=== PATIENT | male | born 1955 | race Caucasian/White ===

== ENCOUNTER 2018-08-28 01:04 | Outpatient (CLI) | payer MEDICAID, SELFPAY ==
[2018-08-28 11:03] LABS: Hemoglobin A1C 8.3 % (4.5-6.2)
[2018-08-28 11:07] LABS: CREATININE 0.67 mg/dL (0.70-1.30); Potassium 3.4 mmol/L (3.5-5.1)
== END 2018-08-28 01:24 ==
PROVIDERS: PCP Family Medicine; Visit Provider Family Medicine
DX: E11.9 Type 2 diabetes mellitus without complications (principal); I10 Essential (primary) hypertension
CPT/HCPCS: 36415; 82565; 83036; 84132

== ENCOUNTER 2018-12-21 09:58 | Emergency (ER) | payer MEDICARE, MEDICAID, SELFPAY ==
[2018-12-21] VITALS (62 sets, daily range): BP systolic 102–144; BP diastolic 37–95; PULSE 72–117; RESP 4–39; TEMP 36.8–38; O2SAT 84–98
[2018-12-21] MEDS: Lactated Ringers 500 ML 1000 ML IV (10:00)
--- NOTE | 2018-12-21 10:05 | DI.CT_ITS ---
SYMPTOMS/DIAGNOSIS: COUGH, CRACKLES, RESPIRATORY DISTRESS, FEVER, ABDOMEN TENDER TO PALPATION, GUARDING ABDOMEN CT OF THE CHEST, ABDOMEN AND PELVIS: CT scan of the chest, abdomen and pelvis was performed following the uneventful administration of intravenous contrast material. Comparison is 01/16/17. The is some image degradation due to patient motion artifact. CT SCAN OF THE ABDOMEN AND PELVIS: The liver is normal in size. No evidence of a hepatic mass is seen. The portal, superior mesenteric and splenic veins are all patent. The gallbladder is negative. No biliary ductal dilatation is seen. The pancreas and spleen are unremarkable. There is unchanged nodularity of the adrenal glands. These likely reflect adenomas. The kidneys show normal and symmetric enhancement. No solid renal mass or obstruction is identified. Calcifications are seen of the sophie bilaterally. These may be vascular in nature but nonobstructing stones can not be excluded. No ureterolithiasis or hydronephrosis is seen. The urinary bladder is intact. The reproductive organs are unremarkable. There is diverticulosis of the colon but no evidence of acute diverticulitis. No findings to suggest an acute appendicitis are present. There is a small right inguinal hernia containing an unremarkable loop of small bowel. No evidence of obstruction or incarceration is seen. There is atherosclerosis of the abdominal aorta but no aneurysmal dilatation is present. No significant abdominal or pelvic adenopathy, ascites or pneumoperitoneum is present. Degenerative changes are seen in the spine. IMPRESSION: No evidence of an acute abdomen or pelvis. CT SCAN OF THE CHEST: There are enlarged lymph nodes seen in the mediastinum. The largest measures 1.4 cm in its short axis. There is atherosclerosis of the thoracic aorta but no aneurysmal dilatation is seen. The heart is mildly enlarged. No significant pericardial effusion is seen. Coronary artery calcifications are present. There is a small left pleural effusion. No pneumothorax is identified. Moderate central lobular and paraseptal emphysematous changes are present. The lung images are compromised due to the significant patient motion artifact. There is a large area of consolidation involving the anterior and lateral aspect of the left lower lobe. Air bronchograms are present. There is also a peripheral nodular opacity in the lateral aspect of the right upper lobe. The tracheobronchial tree is unremarkable. No evidence of a pneumothorax is present. Degenerative changes are seen in the spine. IMPRESSION: 1. Large area of consolidation involving the left lower lobe suspicious for pneumonia. Progress films are recommended to document complete resolution of the infiltrate. 2. Enlarged mediastinal adenopathy. This may be reactive. Neoplastic process can not be excluded. 3. Small area of nodularity in the lateral aspect of the right upper lobe. Differential considerations include atelectasis, pneumonia or pulmonary nodule. 4. Small left pleural effusion. These findings were discussed with the emergency department on the date of the examination.
--- NOTE | 2018-12-21 10:09 | W.ED.GENAD ---
Discharge Plan Disposition Patient Disposition: [facility] Condition: Serious Discharge Details Chief Complaint: SOB Clinical Impression: COPD with acute exacerbation, Pneumonia, Sepsis, Hypomagnesemia Reason For Visit: MIHIR Primary Care Provider: Julio Hackett ED Provider: Armani Pathak Home Meds and New Rx's Prescriptions: No Action paroxetine HCl 30 mg tablet 30 mg PO DAILY Qty: 90 RF: 3 Jardiance 10 mg tablet 10 mg PO DAILY Qty: 90 RF: 3 clopidogrel 75 mg tablet 75 mg PO DAILY Qty: 90 RF: 3 isosorbide mononitrate 30 mg tablet extended release 24 hr 30 mg PO DAILY Qty: 90 RF: 3 metoprolol tartrate 25 mg tablet 25 mg PO BID Qty: 180 RF: 3 Prevnar 13 (PF) 0.5 mL syringe 0.5 ml IM ONCE Qty: 0.5 RF: 0 aspirin [Aspir-81] 81 MG tablet,delayed release (DR/EC) 81 mg PO DAILY RF: 0 rosuvastatin [Crestor] 5 MG tablet 5 mg PO DAILY Qty: 90 RF: 3 omeprazole 20 MG capsule,delayed release(DR/EC) 20 mg PO DAILY Qty: 90 RF: 3 amlodipine 5 MG tablet 5 mg PO DAILY Qty: 90 RF: 3 ProAir HFA 8.5 GM HFA aerosol inhaler 2 puff Inhalation Q4H PRN Qty: 1 RF: 2 Flovent HFA 12 GM HFA aerosol inhaler 1 puff Inhalation BID Qty: 1 RF: 3 blood-glucose meter [Group [employer]uch UltraMini] 1 EACH kit 1 ea Miscellaneous DAILY Qty: 1 RF: 0 metformin 1,000 mg tablet 1,000 mg PO BID Qty: 180 RF: 3 lancets [OneTouch Delica Lancets] 33 gauge misc 1 ea Miscellaneous DAILY Qty: 100 RF: 3 OneTouch Verio strip .Route .MEDSUPPLY Qty: 200 RF: 3 nitroglycerin 0.4 mg tablet, sublingual 0.4 mg Sublingual q 5 minutes PRN (Reason: chest pain) Qty: 25 RF: 0 Medical Decision Making 10:15 --62-year-old male with history of COPD, CAD, here with shortness of breath, fever, productive cough, hypoxic with bilateral rales and wheeze, mild respiratory distress on arrival, also with abdominal pain and diffuse tenderness with some guarding. Concern for acute COPD exacerbation with superimposed pneumonia. Patient is currently hypoxic. Will treat with Solu-Medrol IV, DuoNeb, and antibiotic coverage. Respiratory therapy has been contacted to assist with ongoing treatment. Consider acute life-threatening intra-abdominal surgical process given diffuse tenderness and guarding. Plan for CT of the abdomen pelvis. Given the patient's history and lung findings I think it would be beneficial to image his chest as well. 10:54 -- Initial labs reviewed: WBC 30K, lactate 3.4. Patient has received NS 1L. Cr 1.3. This is elevated from prior. I believe benefit of contrast enhancement outweighs potential risk. Will proceed to CT. Continue IVF bolus. Patient reassessed: saturation improved after nebs and on nasal canula O2, still hypoxic and tachypneic. Plan to start bipap. 11:00 --ECG reviewed and interpreted by me: Sinus tachycardia 110 bpm, normal axis, ST depressions noted laterally (these were present on prior ecg 2016). Notified by lab the troponin is elevated 0.1. Suspect demand ischemia. 11:45 -- Patient reassesed: tolerating bipap. Saturating 95%. --CT of the chest, abdomen and pelvis interpreted by radiology: IMPRESSION: 1. Large area of consolidation involving the left lower lobe suspicious for pneumonia. Progress films are recommended to document complete resolution of the infiltrate. 2. Enlarged mediastinal adenopathy. This may be reactive. Neoplastic process can not be excluded. 3. Small area of nodularity in the lateral aspect of the right upper lobe. Differential considerations include atelectasis, pneumonia or pulmonary nodule. 4. Small left pleural effusion. Patient is receiving levaquin and ceftriaxone. Patient reassessed and remains tachycardic after 1L crystaloid. Will give additional 1L bolus. 12:28 -- Multiple conversations with warehouse guard: unfortunately no ICU beds available here. Plan for transfer. Call to [facility] [place] center to request emergent transfer. 13:08 -- Spoke with Dr. Kee who will accept patient to ICU at [facility] [place]. Awaiting bed availability. Patient reassessed and stable on bipap. HR improved and not currently tachycardic after 2L. 15:17 -- Labs reviewed: VBG with nl PCO2 and pH. Patient received mag 3g prior to transfer. Patient reassessed: stable for transfer, tachycardia resolved, continues to tolerate bipap. HPI General Mode of arrival: EMS. Date/Time Provider Initiated Documentation: 12/21/18 10:05. Limitations to Documentation: no limitations. HPI Narrative: 62-year-old male with history of COPD, GERD, peripheral vascular disease, subclavian stenosis, here with chief complaint of abdominal pain. Patient notes that he had abdominal pain for the past week or so. Pain is been progressive. Pain is localized to his left upper abdomen, lower chest and lateral lower left ribs, and radiates to his scapula. Pain is moderate, worse with deep breath and cough. No associated nausea or vomiting. He has had associated productive cough, shortness of breath, and fever over the past couple days. Related Data Home Medications Medication Instructions Recorded Confirmed aspirin [Aspir-81] 81 mg PO DAILY tab-cap NS 01/09/15 12/21/18 rosuvastatin [Crestor] 5 mg PO DAILY #90 tab-cap 03/24/18 12/21/18 omeprazole 20 mg PO DAILY #90 tab-cap 04/15/18 12/21/18 albuterol sulfate [Proair Hfa] 2 puff INHALATION Q4H PRN #1 05/27/18 12/21/18 inhaler amlodipine 5 mg PO DAILY #90 tab-cap 05/27/18 12/21/18 fluticasone [Flovent 110mcg] 1 puff INHALATION BID #1 inhaler 05/27/18 12/21/18 blood-glucose meter [Onetouch #1 kit 07/31/18 11/17/18 Ultramini] metformin 1,000 mg tablet 1,000 mg PO BID #180 tab 08/07/18 12/21/18 lancets 33 gauge #100 ea 09/03/18 11/17/18 blood sugar diagnostic strips #200 each 11/10/18 11/17/18 clopidogrel 75 mg tablet 75 mg PO DAILY #90 tab-cap 11/17/18 12/21/18 empagliflozin 10 mg tablet 10 mg PO DAILY #90 tab 11/17/18 12/21/18 isosorbide mononitrate ER 30 mg 30 mg PO DAILY #90 tab-cap 11/17/18 12/21/18 tablet,extended release 24 hr metoprolol tartrate 25 mg tablet 25 mg PO BID #180 tab-cap 11/17/18 12/21/18 paroxetine 30 mg tablet 30 mg PO DAILY #90 tab-cap 11/17/18 12/21/18 pneumococcal 13-hillary conj 0.5 ml IM ONCE #0.5 ml 11/17/18 12/21/18 vaccine-dip crm (PF) 0.5 mL IM syringe nitroglycerin 0.4 mg sublingual 0.4 mg SUBLINGUAL q 5 minutes PRN 12/08/18 12/21/18 tablet #25 tab-cap Previous Rx's Medication Instructions Recorded rosuvastatin [Crestor] 5 mg PO DAILY #90 tab-cap 03/24/18 omeprazole 20 mg PO DAILY #90 tab-cap 04/15/18 albuterol sulfate [Proair Hfa] 2 puff INHALATION Q4H PRN #1 05/27/18 inhaler amlodipine 5 mg PO DAILY #90 tab-cap 05/27/18 fluticasone [Flovent 110mcg] 1 puff INHALATION BID #1 inhaler 05/27/18 blood-glucose meter [Hurray!touch #1 kit 07/31/18 Ultramini] metformin 1,000 mg tablet 1,000 mg PO BID #180 tab 08/07/18 lancets 33 gauge #100 ea 09/03/18 blood sugar diagnostic strips #200 each 11/10/18 clopidogrel 75 mg tablet 75 mg PO DAILY #90 tab-cap 11/17/18 empagliflozin 10 mg tablet 10 mg PO DAILY #90 tab 11/17/18 isosorbide mononitrate ER 30 mg 30 mg PO DAILY #90 tab-cap 11/17/18 tablet,extended release 24 hr metoprolol tartrate 25 mg tablet 25 mg PO BID #180 tab-cap 11/17/18 paroxetine 30 mg tablet 30 mg PO DAILY #90 tab-cap 11/17/18 pneumococcal 13-hillary conj 0.5 ml IM ONCE #0.5 ml 11/17/18 vaccine-dip crm (PF) 0.5 mL IM syringe nitroglycerin 0.4 mg sublingual 0.4 mg SUBLINGUAL q 5 minutes PRN 12/08/18 tablet #25 tab-cap Allergies Allergy/AdvReac Type Severity Reaction Status Date / Time pravastatin AdvReac memory loss Unverified 12/21/18 10:16 Review of Systems Review of Systems All systems reviewed & are unremarkable except as noted in HPI and below Cardiovascular Reports dyspnea Respiratory Reports cough and Reports dyspnea Gastrointestinal Reports as per HPI, Reports abdominal pain, Denies diarrhea, Denies nausea and Denies vomiting [facility] Medical History Cranial nerve IV palsy GERD (gastroesophageal reflux disease) Hyperlipidemia Hypertension Surgical History AORTIC graft placement (03/21/17) Stent placement Family History Mother Personal history of malignant neoplasm Father Heart disease Stroke Brother Meniere's disease Social History current occupational status: employed current occupation: [employer] Smoking/Tobacco Use Status: Current every day tobacco type: cigarettes alcohol intake: current alcohol intake frequency: 0-2 drinks per day substance use type: does not use Exam Const General: cooperative and in distress respiratory Nutritional Appearance: overweight Orientation: alert and awake Limitations: mental status not altered HENMT Head: normocephalic and atraumatic Mouth: moist mucous membranes Eyes Conjunctivae: normal conjunctivae Sclera: normal sclerae EOM: EOM intact bilaterally Neck Neck: trachea midline and supple Resp Effort & Inspection: cough, respiratory distress and tachypneic Auscultation: rales bilaterally at the base, no rhonchi and wheezes expiratory wheezes and upper bilaterally Cardio Jugular venous pressure: no JVD Rate: tachycardic Rhythm: regular rhythm Pulses: posterior tibial pulses present bilaterally GI Palpation: soft, not firm, guarding in the LUQ and in the RUQ, no masses, not rigid and tender other (Diffuse) Skin General skin exam: no rashes or lesions noted Neuro General: alert, awake, oriented x3 and tone normal Extrem General: no calf tenderness and no edema Psych Appearance: grossly normal Mental Status: mental status grossly normal Speech and Movement: speech and movement normal Course Lab/Test Results Lab/Test Results: 12/21/18 10:08 Blood Blood Culture - Pending 12/21/18 10:08 Blood Blood Culture - Pending Critical Care Time Critical Care Time: Yes Total Critical Care Time: 80 Attestation: I spent greater than 80 min addressing this patient's immediate life threats.
[2018-12-21] MEDS: methylPREDNISolone SUCC 125 MG VIAL IVP (10:10)
[2018-12-21] MEDS: Albuterol/Ipratropium 3 ML UPD VIAL UPD ×3 (10:10)
--- NOTE | 2018-12-21 10:19 | ED.GENADUL_ITS ---
Discharge Plan Disposition Patient Disposition: [facility] Condition: Serious Discharge Details Chief Complaint: SOB Clinical Impression: COPD with acute exacerbation, Pneumonia, Sepsis, Hypomagnesemia Reason For Visit: MIHIR Primary Care Provider: Julio Hackett ED Provider: Armani Pathak Home Meds and New Rx's Prescriptions: No Action paroxetine HCl 30 mg tablet 30 mg PO DAILY Qty: 90 RF: 3 Jardiance 10 mg tablet 10 mg PO DAILY Qty: 90 RF: 3 clopidogrel 75 mg tablet 75 mg PO DAILY Qty: 90 RF: 3 isosorbide mononitrate 30 mg tablet extended release 24 hr 30 mg PO DAILY Qty: 90 RF: 3 metoprolol tartrate 25 mg tablet 25 mg PO BID Qty: 180 RF: 3 Prevnar 13 (PF) 0.5 mL syringe 0.5 ml IM ONCE Qty: 0.5 RF: 0 aspirin [Aspir-81] 81 MG tablet,delayed release (DR/EC) 81 mg PO DAILY RF: 0 rosuvastatin [Crestor] 5 MG tablet 5 mg PO DAILY Qty: 90 RF: 3 omeprazole 20 MG capsule,delayed release(DR/EC) 20 mg PO DAILY Qty: 90 RF: 3 amlodipine 5 MG tablet 5 mg PO DAILY Qty: 90 RF: 3 ProAir HFA 8.5 GM HFA aerosol inhaler 2 puff Inhalation Q4H PRN Qty: 1 RF: 2 Flovent HFA 12 GM HFA aerosol inhaler 1 puff Inhalation BID Qty: 1 RF: 3 blood-glucose meter [[employer] UltraMini] 1 EACH kit 1 ea Miscellaneous DAILY Qty: 1 RF: 0 metformin 1,000 mg tablet 1,000 mg PO BID Qty: 180 RF: 3 lancets [OneTouch Delica Lancets] 33 gauge misc 1 ea Miscellaneous DAILY Qty: 100 RF: 3 OneTouch Verio strip .Route .MEDSUPPLY Qty: 200 RF: 3 nitroglycerin 0.4 mg tablet, sublingual 0.4 mg Sublingual q 5 minutes PRN (Reason: chest pain) Qty: 25 RF: 0 Medical Decision Making 10:15 --62-year-old male with history of COPD, CAD, here with shortness of breath, fever, productive cough, hypoxic with bilateral rales and wheeze, mild respiratory distress on arrival, also with abdominal pain and diffuse tenderness with some guarding. Concern for acute COPD exacerbation with superimposed pneumonia. Patient is currently hypoxic. Will treat with Solu-Medrol IV, DuoNeb, and antibiotic coverage. Respiratory therapy has been contacted to assist with ongoing treatment. Consider acute life-threatening intra-abdominal surgical process given diffuse tenderness and guarding. Plan for CT of the abdomen pelvis. Given the patient's history and lung findings I think it would be beneficial to image his chest as well. 10:54 -- Initial labs reviewed: WBC 30K, lactate 3.4. Patient has received NS 1L. Cr 1.3. This is elevated from prior. I believe benefit of contrast enhancement outweighs potential risk. Will proceed to CT. Continue IVF bolus. Patient reassessed: saturation improved after nebs and on nasal canula O2, still hypoxic and tachypneic. Plan to start bipap. 11:00 --ECG reviewed and interpreted by me: Sinus tachycardia 110 bpm, normal axis, ST depressions noted laterally (these were present on prior ecg 2016). Notified by lab the troponin is elevated 0.1. Suspect demand ischemia. 11:45 -- Patient reassesed: tolerating bipap. Saturating 95%. --CT of the chest, abdomen and pelvis interpreted by radiology: IMPRESSION: 1. Large area of consolidation involving the left lower lobe suspicious for pneumonia. Progress films are recommended to document complete resolution of the infiltrate. 2. Enlarged mediastinal adenopathy. This may be reactive. Neoplastic process can not be excluded. 3. Small area of nodularity in the lateral aspect of the right upper lobe. Differential considerations include atelectasis, pneumonia or pulmonary nodule. 4. Small left pleural effusion. Patient is receiving levaquin and ceftriaxone. Patient reassessed and remains tachycardic after 1L crystaloid. Will give additional 1L bolus. 12:28 -- Multiple conversations with housekeeping staff: unfortunately no ICU beds available here. Plan for transfer. Call to [facility] [place] transfer center to request emergent transfer. 13:08 -- Spoke with Dr. Kee who will accept patient to ICU at [facility] [place]. Awaiting bed availability. Patient reassessed and stable on bipap. HR improved and not currently tachycardic after 2L. 15:17 -- Labs reviewed: VBG with nl PCO2 and pH. Patient received mag 3g prior to transfer. Patient reassessed: stable for transfer, tachycardia resolved, continues to tolerate bipap. HPI General Mode of arrival: EMS . Date/Time Provider Initiated Documentation: 12/21/18 10:05 . Limitations to Documentation: no limitations . HPI Narrative: 62-year-old male with history of COPD, GERD, peripheral vascular disease, subclavian stenosis, here with chief complaint of abdominal pain. Patient notes that he had abdominal pain for the past week or so. Pain is been progressive. Pain is localized to his left upper abdomen, lower chest and lateral lower left ribs, and radiates to his scapula. Pain is moderate, worse with deep breath and cough. No associated nausea or vomiting. He has had associated productive cough, shortness of breath, and fever over the past couple days. Related Data Home Medications Medication Instructions Recorded Confirmed aspirin [Aspir-81] 81 mg PO DAILY tab-cap NS 01/09/15 12/21/18 rosuvastatin [Crestor] 5 mg PO DAILY #90 tab-cap 03/24/18 12/21/18 omeprazole 20 mg PO DAILY #90 tab-cap 04/15/18 12/21/18 albuterol sulfate [Proair Hfa] 2 puff INHALATION Q4H PRN #1 05/27/18 12/21/18 inhaler amlodipine 5 mg PO DAILY #90 tab-cap 05/27/18 12/21/18 fluticasone [Flovent 110mcg] 1 puff INHALATION BID #1 inhaler 05/27/18 12/21/18 blood-glucose meter [Onetouch #1 kit 07/31/18 11/17/18 Ultramini] metformin 1,000 mg tablet 1,000 mg PO BID #180 tab 08/07/18 12/21/18 lancets 33 gauge #100 ea 09/03/18 11/17/18 blood sugar diagnostic strips #200 each 11/10/18 11/17/18 clopidogrel 75 mg tablet 75 mg PO DAILY #90 tab-cap 11/17/18 12/21/18 empagliflozin 10 mg tablet 10 mg PO DAILY #90 tab 11/17/18 12/21/18 isosorbide mononitrate ER 30 mg 30 mg PO DAILY #90 tab-cap 11/17/18 12/21/18 tablet,extended release 24 hr metoprolol tartrate 25 mg tablet 25 mg PO BID #180 tab-cap 11/17/18 12/21/18 paroxetine 30 mg tablet 30 mg PO DAILY #90 tab-cap 11/17/18 12/21/18 pneumococcal 13-hillary conj 0.5 ml IM ONCE #0.5 ml 11/17/18 12/21/18 vaccine-dip crm (PF) 0.5 mL IM syringe nitroglycerin 0.4 mg sublingual 0.4 mg SUBLINGUAL q 5 minutes PRN 12/08/18 12/21/18 tablet #25 tab-cap Previous Rx's Medication Instructions Recorded rosuvastatin [Crestor] 5 mg PO DAILY #90 tab-cap 03/24/18 omeprazole 20 mg PO DAILY #90 tab-cap 04/15/18 albuterol sulfate [Proair Hfa] 2 puff INHALATION Q4H PRN #1 05/27/18 inhaler amlodipine 5 mg PO DAILY #90 tab-cap 05/27/18 fluticasone [Flovent 110mcg] 1 puff INHALATION BID #1 inhaler 05/27/18 blood-glucose meter [AlterPointtouch #1 kit 07/31/18 Ultramini] metformin 1,000 mg tablet 1,000 mg PO BID #180 tab 08/07/18 lancets 33 gauge #100 ea 09/03/18 blood sugar diagnostic strips #200 each 11/10/18 clopidogrel 75 mg tablet 75 mg PO DAILY #90 tab-cap 11/17/18 empagliflozin 10 mg tablet 10 mg PO DAILY #90 tab 11/17/18 isosorbide mononitrate ER 30 mg 30 mg PO DAILY #90 tab-cap 11/17/18 tablet,extended release 24 hr metoprolol tartrate 25 mg tablet 25 mg PO BID #180 tab-cap 11/17/18 paroxetine 30 mg tablet 30 mg PO DAILY #90 tab-cap 11/17/18 pneumococcal 13-hillary conj 0.5 ml IM ONCE #0.5 ml 11/17/18 vaccine-dip crm (PF) 0.5 mL IM syringe nitroglycerin 0.4 mg sublingual 0.4 mg SUBLINGUAL q 5 minutes PRN 12/08/18 tablet #25 tab-cap Allergies Allergy/AdvReac Type Severity Reaction Status Date / Time pravastatin AdvReac memory loss Unverified 12/21/18 10:16 Review of Systems Review of Systems All systems reviewed & are unremarkable except as noted in HPI and below Cardiovascular Reports dyspnea Respiratory Reports cough and Reports dyspnea Gastrointestinal Reports as per HPI, Reports abdominal pain, Denies diarrhea, Denies nausea and Denies vomiting [facility] Medical History Cranial nerve IV palsy GERD (gastroesophageal reflux disease) Hyperlipidemia Hypertension Surgical History AORTIC graft placement (03/21/17) Stent placement Family History Mother Personal history of malignant neoplasm Father Heart disease Stroke Brother Meniere's disease Social History current occupational status: employed current occupation: [employer] Smoking/Tobacco Use Status: Current every day tobacco type: cigarettes alcohol intake: current alcohol intake frequency: 0-2 drinks per day substance use type: does not use Exam Const General: cooperative and in distress respiratory Nutritional Appearance: overweight Orientation: alert and awake Limitations: mental status not altered HENMT Head: normocephalic and atraumatic Mouth: moist mucous membranes Eyes Conjunctivae: normal conjunctivae Sclera: normal sclerae EOM: EOM intact bilaterally Neck Neck: trachea midline and supple Resp Effort & Inspection: cough, respiratory distress and tachypneic Auscultation: rales bilaterally at the base, no rhonchi and wheezes expiratory wheezes and upper bilaterally Cardio Jugular venous pressure: no JVD Rate: tachycardic Rhythm: regular rhythm Pulses: posterior tibial pulses present bilaterally GI Palpation: soft, not firm, guarding in the LUQ and in the RUQ, no masses, not rigid and tender other (Diffuse) Skin General skin exam: no rashes or lesions noted Neuro General: alert, awake, oriented x3 and tone normal Extrem General: no calf tenderness and no edema Psych Appearance: grossly normal Mental Status: mental status grossly normal Speech and Movement: speech and movement normal Course Lab/Test Results Lab/Test Results: 12/21/18 10:08 Blood Blood Culture - Pending 12/21/18 10:08 Blood Blood Culture - Pending Critical Care Time Critical Care Time: Yes Total Critical Care Time: 80 Attestation: I spent greater than 80 min addressing this patient's immediate life threats.
[2018-12-21 10:21] LABS: Lactate 3.4 mmol/L (0.6-1.4)
[2018-12-21 10:38] LABS: HCT 34.4 % (40.0-50.0); HGB 9.9 g/dL (13.5-17.5); Mean Corp. HGB Concentration 28.8 g/dL (32.0-36.0); Mean Corpuscular Hemoglobin 18.7 pg (27.0-33.0); Mean Corpuscular Volume 64.9 fL (80-95); Mean Platelet Volume 9.2 fL (8.0-11.0); Platelet Count 439 x1000/uL (130-400); RBC Distribution Width 17.2 % (11.8-14.1)
[2018-12-21] MEDS: Lactated Ringers 1,000 ML 125 ML IV (10:41)
[2018-12-21 10:50] LABS: White Blood Cell Count 34.81 k/cumm (4.4-10.8)
[2018-12-21 10:51] LABS: Absolute Basophil Count 0.35 k/cumm (0.0-0.2); Absolute Lymphocyte Count 2.78 k/cumm (1.2-3.4); Absolute Monocyte Count 1.04 k/cumm (0.11-0.7); Absolute Neutrophil Count 30.63 k/cumm (1.2-6.7); Diff Comment Manual Differential
[2018-12-21 10:52] LABS: Anisocytosis 1+; Hypochromasia 1+; Microcytosis 3+; Polychromasia Present
[2018-12-21 10:53] LABS: Poikilocytes 1+
[2018-12-21 10:57] LABS: ALT 23 U/L (12-78); AST 46 U/L (15-37); Albumin 2.5 g/dL (3.4-5.0); Alkaline Phosphatase 133 U/L (46-116); Anion Gap 10.7 mmol/L (3-11); BUN 23 mg/dL (7-18); Bilirubin, Total 0.9 mg/dL (0.2-1.0); CO2 27.3 mmol/L (21.0-32.0); CREATININE 1.32 mg/dL (0.70-1.30); Calcium 8.9 mg/dL (8.5-10.1); Chloride 93 mmol/L (98-107); Estimated GFR 54.61 (mL/min/1.73m2); Glucose 149 mg/dL (70-100); Potassium 3.5 mmol/L (3.5-5.1); Sodium 131 mmol/L (136-145); Total Protein 7.4 g/dL (6.4-8.2)
[2018-12-21 11:05] LABS: Lipase 70 U/L (73-393)
[2018-12-21 11:06] LABS: Bilirubin Negative (Negative); Blood Moderate (Negative); Clarity Clear; Glucose 500 mg/dL (Negative); Ketones Negative (Negative); Leukocyte Esterase Negative (Negative); Nitrite Negative (Negative)
[2018-12-21 11:12] LABS: Magnesium 0.7 mg/dL (1.8-2.4)
[2018-12-21] MEDS: Omnipaque 350 MG/ML 100 ML BTL IJ (11:17)
[2018-12-21] MEDS: LEVOFLOXACIN 750 MG/150 ML BAG 100 MG IVPB (11:19)
[2018-12-21 11:20] LABS: Bacteria Moderate HPF (Negative); Crystals Negative HPF (Negative); Epithelial Cells Rare HPF (Negative); Mucus Negative (Negative); Other Cells Few Renal (Negative)
[2018-12-21] MEDS: Acetaminophen 325 MG TAB 650 MG PO (11:21)
[2018-12-21 11:22] LABS: C & S Indicated? Yes
[2018-12-21] MEDS: MAGNESIUM SULFATE 2 GM/50 ML BAG IVPB (11:34)
[2018-12-21 11:49] LABS: Magnesium 0.6 mg/dL (1.8-2.4)
[2018-12-21 12:54] LABS: BE (Venous) 0.2 mmol/L (-3-3); HCO3 (Venous) 25 mmol/L (22-28); O2 Sat (Venous) 95 % (70-80); TCO2 (Venous) 24 mmol/L (22-29); pCO2 (Venous) 42 mm/Hg (34-47); pH (Venous) 7.39 (7.32-7.43); pO2 (Venous) 76 mm/Hg (28-44)
[2018-12-21] MEDS: Lactated Ringers 1,000 ML 200 ML IV (13:13)
[2018-12-21] MEDS: MAGNESIUM SULFATE 1 GM/100 ML BAG IVPB (14:15)
--- NOTE | 2018-12-22 10:40 | NUR.NOTE ---
Nursing Note: Faxed to [facility] 3 No. the preliminary positive blood culture results. . Lenora Urrutia.
--- NOTE | 2018-12-23 10:34 | NUR.NOTE ---
[facility] Urine Culture result faxed to [address] patient was transfered to. [phone] Note:
--- NOTE | 2018-12-24 09:36 | NUR.NOTE ---
Final Blood Culture result faxed to [facility] [place] [facility] [phone].Nursing Note:
== END 2018-12-21 15:25 | disposition short-term general hospital (02) ==
PROVIDERS: Emergency Provider Student in an Organized Health Care Education/Training Program; PCP Family Medicine
DX: J44.0 Chronic obstructive pulmonary disease with (acute) lower respiratory infection (principal); J18.9 Pneumonia, unspecified organism; A40.3 Sepsis due to Streptococcus pneumoniae; R09.02 Hypoxemia; J44.1 Chronic obstructive pulmonary disease with (acute) exacerbation; E83.42 Hypomagnesemia; R91.8 Other nonspecific abnormal finding of lung field; R10.12 Left upper quadrant pain; I10 Essential (primary) hypertension; F17.210 Nicotine dependence, cigarettes, uncomplicated
CPT/HCPCS: 36415; 74177; 80053; 82805; 83690; 87040; 87077; 87449; 93005; 94640; 96361; 96365; 96366; 96375; 99291; 99292; 71260; 81003; 81015; 83605; 83735; 84484; 85025; 87086; 87186; 93010; J0696; J1956; J2930; J3475; J3490; J7620

== ENCOUNTER 2019-01-08 01:31 | Outpatient (CLI) | payer MEDICARE, SELFPAY ==
[2019-01-08 11:41] LABS: Hemoglobin A1C 7.6 % (4.5-6.2)
== END 2019-01-08 01:51 ==
PROVIDERS: PCP Family Medicine; Visit Provider Family Medicine
DX: E11.9 Type 2 diabetes mellitus without complications (principal)
CPT/HCPCS: 36415; 83036

== ENCOUNTER 2019-01-25 13:57 | Emergency (ER) | payer MEDICARE, MEDICAID, SELFPAY ==
[2019-01-25] VITALS (24 sets, daily range): BP systolic 131–176; BP diastolic 46–118; PULSE 67–77; RESP 2–26; TEMP 36.2–37.1; O2SAT 89–99
--- NOTE | 2019-01-25 14:20 | DI.RAD_ITS ---
SYMPTOMS/DIAGNOSIS: COUGH, SHORTNESS OF BREATH, ? PNEUMONIA PA AND LATERAL CHEST: Comparison is made with October, and recent chest CT. The heart size is within normal limits. A vascular stent is seen above the aortic arch. There is an infiltrate in the anterior left lower lobe, as well as a question of an additional infiltrate at the costophrenic angle vs. small left pleural effusion. The infiltrate appears smaller when compared to the previous CT The right lung appears clear. IMPRESSION: Left lower lobe pneumonia with some improvement since prior CT.
--- NOTE | 2019-01-25 14:20 | DI.CT_ITS ---
SYMPTOMS/DIAGNOSIS: DIZZINESS, ? ACUTE CEREBROVASCULAR ACCIDENT NONCONTRAST HEAD CT: Comparison is made with December,. No acute infarct, hemorrhage or mass is seen. The ventricles are unchanged in size. Atrophy is again noted. There is no evidence of skull fracture. There is chronic sinus disease, greatest in the ethmoid and maxillary sinuses. The mastoid air cells appear clear. The orbits are unremarkable. IMPRESSION: Sinus disease. No acute abnormality.
[2019-01-25] MEDS: Albuterol 2.5 MG/3 ML INH SOLN VIAL UPD (14:29)
[2019-01-25] MEDS: methylPREDNISolone SUCC 125 MG VIAL IVP (14:29)
--- NOTE | 2019-01-25 14:29 | ED.GENADUL_ITS ---
Discharge Plan Disposition Patient Disposition: AGAINST MEDICAL ADVICE Condition: Stable Discharge Details Chief Complaint: Dizzy/Sync Clinical Impression: COPD with acute exacerbation, Episode of dizziness, Pneumonia, Pleural effusion, Hypokalemia, Hypomagnesemia Reason For Visit: MIHIR Primary Care Provider: Julio Hackett ED Provider: Maye Dixon Home Meds and New Rx's Prescriptions: New prednisone 20 mg tablet 20 mg PO DIRECTED Qty: 12 RF: 0 levofloxacin [Levaquin] 750 mg tablet 750 mg PO DAILY 5 Days Qty: 5 RF: 0 albuterol sulfate 2.5 mg /3 mL (0.083 %) solution for nebulization 2.5 mg IH QID PRN (Reason: shortness of breath or wheezing) Qty: 75 RF: 0 magnesium oxide 400 mg capsule 400 mg PO DAILY 3 Days Qty: 3 RF: 0 Continued paroxetine HCl 30 mg tablet 30 mg PO DAILY Qty: 90 RF: 3 Jardiance 10 mg tablet 10 mg PO DAILY Qty: 90 RF: 3 clopidogrel 75 mg tablet 75 mg PO DAILY Qty: 90 RF: 3 isosorbide mononitrate 30 mg tablet extended release 24 hr 30 mg PO DAILY Qty: 90 RF: 3 metoprolol tartrate 25 mg tablet 25 mg PO BID Qty: 180 RF: 3 Prevnar 13 (PF) 0.5 mL syringe 0.5 ml IM ONCE Qty: 0.5 RF: 0 aspirin [Aspir-81] 81 MG tablet,delayed release (DR/EC) 81 mg PO DAILY RF: 0 rosuvastatin [Crestor] 5 MG tablet 5 mg PO DAILY Qty: 90 RF: 3 omeprazole 20 MG capsule,delayed release(DR/EC) 20 mg PO DAILY Qty: 90 RF: 3 amlodipine 5 MG tablet 5 mg PO DAILY Qty: 90 RF: 3 albuterol sulfate [ProAir HFA] 8.5 GM HFA aerosol inhaler 2 puff Inhalation Q4H PRN Qty: 1 RF: 2 Flovent HFA 12 GM HFA aerosol inhaler 1 puff Inhalation BID Qty: 1 RF: 3 blood-glucose meter [KahubTouch UltraMini] 1 EACH kit 1 ea Miscellaneous DAILY Qty: 1 RF: 0 metformin 1,000 mg tablet 1,000 mg PO BID Qty: 180 RF: 3 OneTouch Verio strip .Route .MEDSUPPLY Qty: 200 RF: 3 metoclopramide HCl [Reglan] 10 mg tablet 10 mg PO .ac and hs Qty: 120 RF: 1 nicotine 21 mg/24 hr patch 24 hour 1 patch TD DAILY RF: 0 salmeterol 50 mcg/dose blister with device 1 inh IH BID Qty: 60 RF: 5 nicotine (polacrilex) 2 mg gum 2 mg BC .q2hprn Qty: 50 RF: 3 nitroglycerin 0.4 mg tablet, sublingual 0.4 mg Sublingual q 5 minutes PRN (Reason: chest pain) Qty: 25 RF: 0 ipratropium-albuterol 0.5 mg-3 mg(2.5 mg base)/3 mL solution for nebulization 3 ml IH .q6 hrs Qty: 180 RF: 2 lancets [OneTouch Delica Lancets] 33 gauge misc 1 ea Miscellaneous DAILY Qty: 100 RF: 3 Stiolto Respimat 2.5-2.5 mcg/actuation mist 2 puff IH DAILY Qty: 4 RF: 2 Serevent Diskus 50 mcg/dose blister with device 1 inh IH BID Qty: 60 RF: 2 Discharge Instructions Instructions: COPD (Chronic Obstructive Pulmonary Disease) (ED), Dizziness (ED), Pneumonia (ED) Additional Instructions: Take the steroids and antibiotics until finished. Use your albuterol inhaler and solution as needed and directed. Your potassium was low today. Consider increasing potassium in her diet inc luding tomatoes, spinach, bananas. You were given 1 dose of Lasix today for possible increased fluid in your lungs. Follow-up with your primary care doctor this week for reevaluation, and for whet her you need continued diuretics, and for follow-up on your blood culture results on whether to continue your antibiotics. Return immediately to the emergency department any worsening or concerning s ymptoms. Discharge Data Discharge Physician: Maye Dixon Medical Decision Making 63-year-old male with a history of diabetes, COPD, coronary artery disease, hypertension, high cholesterol, peripheral vascular disease, aortic graft placement, coronary stent placement and recent admission to [facility] for sepsis and pneumonia who presents with shortness of breath since yesterday, and an episode of dizziness while sitting today. Also admitting to some worsening lower extremity edema over the past few days. No complaint of chest pain, fever, headache, vision changes, slurred speech, unilateral weakness or numbness. Pressure mildly hypertensive. O2 saturation 90% on room air. Patient states he is mid to high 90s on room air at baseline. He is not on home oxygen. Normal heart rate, respiratory rate and afebrile. Patient appears nontoxic and is speaking in full sentences. Scattered wheezing and rhonchi throughout. Crackles in bases bilaterally. No meningeal signs. No focal deficits. Differential diagnosis includes acute COPD exacerbation, acute CHF exacerbation. No history of syncope, without tachycardia, so doubt PE. No focal deficits and no complaint of headache or strokelike symptoms, so doubt CVA. Will place an IV, labs, chest x-ray, CT head and nebs, steroids. Patient states he wants to go home today and does not want to be admitted to the hospital. I advised that based on his workup and his symptoms, admission might be recommended, but will reassess. EKG notes a rate of 71, sinus, no acute findings. 1535 --patient states he feels much better. O2 sat 95% on 2 L. Labs reviewed and note a normal white blood cell count. Hemoglobin decreased at 9. Potassium 3.1. Magnesium 0.8, was 0.6 last month. Will replete potassium and magnesium p.o. Troponin negative. BNP 953. CT head negative. Chest x-ray notes an improvement in his previous left lower lobe pneumonia and possible left pleural effusion. Will obtain lactate and blood cultures. Patient is requesting to go home. He is agreeable to another neb treatment. The risks of and disability were fully explained to patient and he understands and is still requesting to leave. AMA form signed. Patient demonstrates capacity to make decisions. Patient was given a dose of p.o. Lasix here. Will hold on prescription for Lasix for a few days due to his hypokalemia and will have him follow-up with his primary care doctor this week. Will send home with another regimen of steroids. As his shortness of breath is returned, this all may be due to COPD, but with persistent pneumonia and patient a chronic smoker, will send home with a prescription for antibiotics. Patient placed on care management list to help arrange for follow-up appointment with his primary care doctor this week. His oxygen saturation prior to leaving was 94% on room air. Medical Records Medical records reviewed: Yes I reviewed the patient's medical records. Imaging Data Radiologic Study: Radiologist's impression: PA AND LATERAL CHEST: Comparison is made with October, and recent chest CT. The heart size is within normal limits. A vascular stent is seen above the aortic arch. There is an infiltrate in the anterior left lower lobe, as well as a question of an additional infiltrate at the costophrenic angle vs. small left pleural effusion. The infiltrate appears smaller when compared to the previous CT The right lung appears clear. IMPRESSION: Left lower lobe pneumonia with some improvement since prior CT. NONCONTRAST HEAD CT: Comparison is made with December,. No acute infarct, hemorrhage or mass is seen. The ventricles are unchanged in size. Atrophy is again noted. There is no evidence of skull fracture. There is chronic sinus disease, greatest in the ethmoid and maxillary sinuses. The mastoid air cells appear clear. The orbits are unremarkable. IMPRESSION: Sinus disease. No acute abnormality. Lab Data Lab results reviewed: Yes I reviewed the patient's lab results. 01/25/19 15:55 Blood Blood Culture - Pending 01/25/19 15:42 Blood Blood Culture - Pending Laboratory Tests Range/Units 01/25/19 01/25/19 01/25/19 14:05 14:05 15:55 WBC (4.4-10.8) k/cumm 9.05 RBC (4.50-6.00) m/cumm 4.99 Hgb (13.5-17.5) g/dL 9.0 L Hct (40.0-50.0) % 32.3 L MCV (80-95) fL 64.7 L MCH (27.0-33.0) pg 18.0 L MCHC (32.0-36.0) g/dL 27.9 L RDW (11.8-14.1) % 18.5 H Plt Count (130-400) x1000/uL 507 H MPV (8.0-11.0) fL 8.5 Immature Gran % 0.3 Neutrophils % 70.1 Lymphocytes % 20.4 Monocytes % 5.5 Eosinophils % 2.9 Basophils % 0.8 Absolute Neutrophils (1.2-6.7) k/cumm 6.34 Absolute Lymphocytes (1.2-3.4) k/cumm 1.85 Absolute Monocytes (0.11-0.7) k/cumm 0.50 Absolute Eosinophils (0.0-0.7) k/cumm 0.26 Absolute Basophils (0.0-0.2) k/cumm 0.07 Differential Comment Rbc morph reviewed RBC Morphology See below Polychromasia Present Hypochromasia 3+ Poikilocytosis 2+ Anisocytosis 2+ Microcytosis 3+ Sodium (136-145) mmol/L 140 Potassium (3.5-5.1) mmol/L 3.1 L Chloride (98-107) mmol/L 100 Carbon Dioxide (21.0-32.0) mmol/L 29.3 Anion Gap (3-11) mmol/L 10.7 BUN (7-18) mg/dL 8 Creatinine (0.70-1.30) mg/dL 0.71 Estimated GFR/1.73 m2 (mL/min/1.73m2) >= 60.00 Glucose (70-100) mg/dL 92 Lactate (0.6-1.4) mmol/l 0.9 Calcium (8.5-10.1) mg/dL 8.0 L Magnesium (1.8-2.4) mg/dL 0.8 L Total Bilirubin (0.2-1.0) mg/dL 0.3 AST (15-37) U/L 19 ALT (12-78) U/L 17 Alkaline Phosphatase (46-116) U/L 145 H Troponin I (0.00-0.06) ng/mL < 0.02 NT-Pro-B Natriuret Pep ( - 299) pg/mL 953 H Total Protein (6.4-8.2) g/dL 8.1 Albumin (3.4-5.0) g/dL 2.9 L ECG Data Attestation: I personally reviewed and interpreted this ECG (s) as follows: Interpretation: Rate of 71, sinus, no acute ST elevation or depression. QTc 437. QRS 92. HPI General Mode of arrival: ambulatory . Date/Time Provider Initiated Documentation: 01/25/19 14:00 . Limitations to Documentation: no limitations . Information obtained by: patient . HPI Narrative: Patient is a 63-year-old male who presents with shortness of breath since yesterday and an episode of dizziness and near syncope today at home. Patient was seen in the ED last month and transferred to [facility] for sepsis and pneumonia. He states he was discharged home and feeling much better until shortness of breath returned yesterday. He states he is not on oxygen at home at his baseline oxygen saturation is 98% on room air. He admits to a chronic cough with clear white sputum and states this is no worse than usual. He states today he was sitting with home health when he felt a sudden reed of dizziness and a strange sensation go across his head. He denies any headache, vision changes, slurred speech, unilateral numbness or weakness. He denies any syncopal episode. He states he has been eating and drinking well. He admits to an episode of isolated chest pain yesterday but not since then. He denies any known fever, vomiting, diarrhea, abdominal pain, chest pain, urinary symptoms, headache or unilateral numbness or weakness. Related Data Home Medications Medication Instructions Recorded Confirmed aspirin [Aspir-81] 81 mg PO DAILY tab-cap NS 01/09/15 01/25/19 rosuvastatin [Crestor] 5 mg PO DAILY #90 tab-cap 03/24/18 01/25/19 omeprazole 20 mg PO DAILY #90 tab-cap 04/15/18 01/25/19 Flovent HFA 1 puff INHALATION BID #1 inhaler 05/27/18 01/25/19 albuterol sulfate [ProAir HFA] 2 puff INHALATION Q4H PRN #1 05/27/18 01/25/19 inhaler amlodipine 5 mg PO DAILY #90 tab-cap 05/27/18 01/25/19 blood-glucose meter [OneTouch #1 kit 07/31/18 01/25/19 UltraMini] metformin 1,000 mg tablet 1,000 mg PO BID #180 tab 08/07/18 01/25/19 blood sugar diagnostic strips #200 each 11/10/18 01/25/19 clopidogrel 75 mg tablet 75 mg PO DAILY #90 tab-cap 11/17/18 01/25/19 empagliflozin 10 mg tablet 10 mg PO DAILY #90 tab 11/17/18 01/25/19 isosorbide mononitrate ER 30 mg 30 mg PO DAILY #90 tab-cap 11/17/18 01/25/19 tablet,extended release 24 hr metoprolol tartrate 25 mg tablet 25 mg PO BID #180 tab-cap 11/17/18 01/25/19 paroxetine 30 mg tablet 30 mg PO DAILY #90 tab-cap 11/17/18 01/25/19 pneumococcal 13-hillary conj 0.5 ml IM ONCE #0.5 ml 11/17/18 01/08/19 vaccine-dip crm (PF) 0.5 mL IM syringe metoclopramide 10 mg tablet 10 mg PO .ac and hs #120 tab 12/29/18 01/25/19 nicotine 21 mg/24 hr daily 1 patch TD DAILY 01/05/19 01/08/19 transdermal patch salmeterol 50 mcg/dose blister 1 inh IH BID #60 each 01/22/19 powder for inhalation albuterol sulfate 2.5 mg IH QID PRN #75 ml 01/25/19 ipratropium-albuterol 0.5 mg-3 3 ml IH .q6 hrs #180 ml 01/25/19 01/25/19 mg(2.5 mg base)/3 mL nebulization soln lancets 33 gauge #100 ea 01/25/19 01/25/19 levofloxacin [Levaquin] 750 mg PO DAILY 5 Days #5 tab 01/25/19 magnesium oxide 400 mg PO DAILY 3 Days #3 cap 01/25/19 nicotine (polacrilex) 2 mg gum 2 mg BC .q2hprn #50 each 01/25/19 nitroglycerin 0.4 mg sublingual 0.4 mg SUBLINGUAL q 5 minutes PRN 01/25/19 01/25/19 tablet #25 tab-cap prednisone 20 mg PO DIRECTED #12 tab 01/25/19 salmeterol 50 mcg/dose blister 1 inh IH BID #60 each 01/25/19 01/25/19 powder for inhalation tiotropium 2.5 mcg-olodaterol 2.5 2 puff IH DAILY #4 gm 01/25/19 01/25/19 mcg/actuation mist for inhalation Previous Rx's Medication Instructions Recorded rosuvastatin [Crestor] 5 mg PO DAILY #90 tab-cap 03/24/18 omeprazole 20 mg PO DAILY #90 tab-cap 04/15/18 Flovent HFA 1 puff INHALATION BID #1 inhaler 05/27/18 albuterol sulfate [ProAir HFA] 2 puff INHALATION Q4H PRN #1 05/27/18 inhaler amlodipine 5 mg PO DAILY #90 tab-cap 05/27/18 blood-glucose meter [OneTouch #1 kit 07/31/18 UltraMini] metformin 1,000 mg tablet 1,000 mg PO BID #180 tab 08/07/18 blood sugar diagnostic strips #200 each 11/10/18 clopidogrel 75 mg tablet 75 mg PO DAILY #90 tab-cap 11/17/18 empagliflozin 10 mg tablet 10 mg PO DAILY #90 tab 11/17/18 isosorbide mononitrate ER 30 mg 30 mg PO DAILY #90 tab-cap 11/17/18 tablet,extended release 24 hr metoprolol tartrate 25 mg tablet 25 mg PO BID #180 tab-cap 11/17/18 paroxetine 30 mg tablet 30 mg PO DAILY #90 tab-cap 11/17/18 pneumococcal 13-hillary conj 0.5 ml IM ONCE #0.5 ml 11/17/18 vaccine-dip crm (PF) 0.5 mL IM syringe metoclopramide 10 mg tablet 10 mg PO .ac and hs #120 tab 12/29/18 salmeterol 50 mcg/dose blister 1 inh IH BID #60 each 01/22/19 powder for inhalation albuterol sulfate 2.5 mg IH QID PRN #75 ml 01/25/19 ipratropium-albuterol 0.5 mg-3 3 ml IH .q6 hrs #180 ml 01/25/19 mg(2.5 mg base)/3 mL nebulization soln lancets 33 gauge #100 ea 01/25/19 levofloxacin [Levaquin] 750 mg PO DAILY 5 Days #5 tab 01/25/19 magnesium oxide 400 mg PO DAILY 3 Days #3 cap 01/25/19 nicotine (polacrilex) 2 mg gum 2 mg BC .q2hprn #50 each 01/25/19 nitroglycerin 0.4 mg sublingual 0.4 mg SUBLINGUAL q 5 minutes PRN 01/25/19 tablet #25 tab-cap prednisone 20 mg PO DIRECTED #12 tab 01/25/19 salmeterol 50 mcg/dose blister 1 inh IH BID #60 each 01/25/19 powder for inhalation tiotropium 2.5 mcg-olodaterol 2.5 2 puff IH DAILY #4 gm 01/25/19 mcg/actuation mist for inhalation Allergies Allergy/AdvReac Type Severity Reaction Status Date / Time pravastatin AdvReac memory loss Unverified 01/25/19 14:15 General Stated Complaint: CVA/TIA JUANITA: 2 Review of Systems Review of Systems All systems reviewed & are unremarkable except as noted in HPI and below Constitutional Reports as per HPI, Denies chills and Denies fever(s) Eyes Denies blurry vision ENT Reports dizziness, Denies sore throat and Denies throat swelling Cardiovascular Denies chest pain and Reports dyspnea Respiratory Reports cough and Reports dyspnea Gastrointestinal Denies abdominal pain, Denies diarrhea and Denies vomiting Genitourinary Denies hematuria and Denies dysuria Musculoskeletal Denies back pain and Denies numbness Integumentary/Breasts Denies lesions and Denies rash Neurologic Reports dizziness, Denies focal weakness and Denies numbness Allergic/Immunologic Denies throat swelling [facility] Medical History Hyperlipemia (Acute) COPD (chronic obstructive pulmonary disease) (Chronic) Coronary artery disease (Chronic) Diabetes (Chronic) GERD (gastroesophageal reflux disease) (Chronic) HTN (hypertension) (Chronic) Peripheral vascular disease (Chronic) Cranial nerve IV palsy GERD (gastroesophageal reflux disease) Hyperlipidemia Hypertension Surgical History AORTIC graft placement (03/21/17) Stent placement Family History Mother Personal history of malignant neoplasm Father Heart disease Stroke Brother Meniere's disease Social History current occupational status: employed current occupation: [employer] Smoking and Tabacco status: Current every day tobacco type: cigarettes alcohol intake: current alcohol intake frequency: 0-2 drinks per day substance use type: does not use Exam Const General: cooperative and no acute distress Orientation: alert, awake and oriented x3 HENMT Head: normal to inspection Ears: hearing grossly normal bilaterally, external ears normal and TM's normal bilaterally General nose exam: external nose normal Face and sinus: normal facial exam Mouth: oral mucosae normal Teeth and gingiva: dentition normal Throat: posterior oropharynx normal Eyes General: appearance normal, both eyes and all related structures Eyelids: eyelids normal Pupils: PERRL EOM: EOM intact bilaterally Neck Neck: normal visual inspection Lymphatic: no lymphadenopathy noted Chest Chest: normal inspection of the chest Resp Effort & Inspection: normal respiratory effort and able to speak in complete sentences Auscultation: crackles bilaterally at the base, rhonchi upper bilaterally and lower bilaterally and wheezes lower bilaterally and upper bilaterally Cardio Rate: regular rate Rhythm: regular rhythm GI Inspection: normal to inspection Palpation: soft, not firm, no guarding, no hepatosplenomegaly, no masses and nontender Auscultation: normal bowel sounds Skin General skin exam: no rashes or lesions noted Neuro General: alert, awake, moves all extremities, no meningeal signs and no focal motor deficits Cranial Nerves: CN's II-XI intact bilaterally Cognition: normal cognition Speech: speech normal Gait: normal gait Motor: muscle tone normal throughout, strength 5/5 throughout and no pronator drift Sensory Exam: no sensory deficits noted Extrem General: normal to inspection, full ROM, normal capillary refill and edema Laterality: bilateral (1+) Psych Appearance: grossly normal Mental Status: mental status grossly normal Speech and Movement: speech and movement normal Affect: normal affect Thought Process: normal Course Vital Signs Temperature 98.8 F 01/25/19 13:57 Pulse 74 01/25/19 13:57 Respiratory Rate 24 01/25/19 13:57 Blood Pressure 171/68 H 01/25/19 13:57 Pulse Oximetry 92 L 01/25/19 13:57 Temperature 98.8 F 01/25/19 13:57 Temperature Source Temporal Artery Scan 01/25/19 13:57 Pulse 74 01/25/19 13:57 Respiratory Rate 20 01/25/19 14:10 Respiratory Effort Incrsd Work of Breathing 01/25/19 14:10 Respiratory Depth Shallow 01/25/19 14:10 Respiratory Pattern Normal 01/25/19 14:10 Blood Pressure 171/68 H 01/25/19 13:57 Blood Pressure Position Sitting 01/25/19 13:57 Pulse Oximetry 92 L 01/25/19 13:57 Oxygen Delivery Method Room Air 01/25/19 13:57 Oxygen Flow Rate 0 01/25/19 13:57 Pain Level 0 01/25/19 13:57
[2019-01-25] MEDS: Normal Saline Flush 10 ML SYR IVP (14:35)
[2019-01-25 14:38] LABS: Abs Immature Grans 0.03 k/cumm (0.0-0.09); Absolute Basophil Count 0.07 k/cumm (0.0-0.2); Absolute Eosinophil Count 0.26 k/cumm (0.0-0.7); Absolute Lymphocyte Count 1.85 k/cumm (1.2-3.4); Absolute Neutrophil Count 6.34 k/cumm (1.2-6.7); Basophils % 0.8; Eosinophils % 2.9; HCT 32.3 % (40.0-50.0); Immature Grans % 0.3; Lymphocytes % 20.4; Mean Corp. HGB Concentration 27.9 g/dL (32.0-36.0); Mean Corpuscular Volume 64.7 fL (80-95); Mean Platelet Volume 8.5 fL (8.0-11.0); Monocytes % 5.5; Neutrophils % 70.1; Platelet Count 507 x1000/uL (130-400); RBC 4.99 m/cumm (4.50-6.00); RBC Distribution Width 18.5 % (11.8-14.1); White Blood Cell Count 9.05 k/cumm (4.4-10.8)
[2019-01-25 14:47] LABS: Anisocytosis 2+; Diff Comment RBC Morph Reviewed; Hypochromasia 3+
[2019-01-25 14:48] LABS: Microcytosis 3+; Poikilocytes 2+; Polychromasia Present
[2019-01-25 14:54] LABS: ALT 17 U/L (12-78); AST 19 U/L (15-37); Albumin 2.9 g/dL (3.4-5.0); Alkaline Phosphatase 145 U/L (46-116); Anion Gap 10.7 mmol/L (3-11); BUN 8 mg/dL (7-18); Bilirubin, Total 0.3 mg/dL (0.2-1.0); CO2 29.3 mmol/L (21.0-32.0); CREATININE 0.71 mg/dL (0.70-1.30); Chloride 100 mmol/L (98-107); Glucose 92 mg/dL (70-100); Magnesium 0.8 mg/dL (1.8-2.4); NT-proBNP 953 pg/mL; Potassium 3.1 mmol/L (3.5-5.1); Sodium 140 mmol/L (136-145); Total Protein 8.1 g/dL (6.4-8.2)
[2019-01-25 14:55] LABS: Troponin I < 0.02 ng/mL (0.00-0.06)
[2019-01-25] MEDS: Albuterol 2.5 MG/3 ML INH SOLN VIAL (15:47)
[2019-01-25] MEDS: Magnesium Oxide 400 MG TAB 800 MG PO (15:47)
[2019-01-25] MEDS: Potassium Chloride 20 MEQ TABCR 40 MEQ PO (15:48)
[2019-01-25 16:04] LABS: Lactate-non-spesis 0.9 mmol/l (0.6-1.4)
[2019-01-25] MEDS: LEVOFLOXACIN 500 MG, LEVOFLOXACIN 250 MG 750 MG PO (16:28)
[2019-01-25] MEDS: Furosemide 20 MG TAB PO (16:28)
--- NOTE | 2019-01-26 10:06 | PDOC.ERCMPRO ---
Care Management Progress Note 01/26-Dr. Dixon requested assistance with a PCP (Lew) f/u for shortness of breath. Patient left AMA. Referral faxed to [facility] am.
== END 2019-01-25 16:32 | disposition left against medical advice (07) ==
PROVIDERS: Emergency Provider Physician Assistant; PCP Family Medicine
DX: J44.1 Chronic obstructive pulmonary disease with (acute) exacerbation (principal); R42 Dizziness and giddiness; J18.9 Pneumonia, unspecified organism; E11.9 Type 2 diabetes mellitus without complications; E83.42 Hypomagnesemia; I10 Essential (primary) hypertension; E87.6 Hypokalemia; Z95.5 Presence of coronary angioplasty implant and graft
CPT/HCPCS: 36415; 80053; 87040; 93005; 94640; 96374; 99285; 70450; 71046; 83605; 83735; 83880; 84484; 85025; 93010; J2930; J7613

== ENCOUNTER 2019-02-11 12:53 | Outpatient (REF) | payer MEDICARE, MEDICAID, SELFPAY ==
[2019-02-11 13:30] LABS: ALT 21 U/L (12-78); AST 19 U/L (15-37); Albumin 3.3 g/dL (3.4-5.0); Alkaline Phosphatase 186 U/L (46-116); Anion Gap 11.2 mmol/L (3-11); BUN 13 mg/dL (7-18); Bilirubin, Total 0.3 mg/dL (0.2-1.0); CO2 27.8 mmol/L (21.0-32.0); CREATININE 0.87 mg/dL (0.70-1.30); Calcium 9.1 mg/dL (8.5-10.1); Chloride 97 mmol/L (98-107); Glucose 203 mg/dL (70-100); Magnesium 1.7 mg/dL (1.8-2.4); Potassium 4.5 mmol/L (3.5-5.1); Sodium 136 mmol/L (136-145); Total Protein 7.3 g/dL (6.4-8.2)
== END 2019-02-11 13:13 ==
LOC: LBN 12:53
PROVIDERS: PCP Family Medicine; Visit Provider Family Medicine
DX: E83.42 Hypomagnesemia (principal); I25.10 Atherosclerotic heart disease of native coronary artery without angina pectoris
CPT/HCPCS: 80053; 83735

== ENCOUNTER 2019-06-01 11:05 | Emergency (ER) | payer MEDICARE, MEDICAID, SELFPAY ==
[2019-06-01 11:11] VITALS: BP 161/68; PULSE 74; RESP 18; TEMP 37; O2SAT 95
--- NOTE | 2019-06-01 11:15 | ED.GENADUL_ITS ---
Discharge Plan Disposition Patient Disposition: HOME Condition: Good Discharge Details Chief Complaint: Orthopedic Clinical Impression: Acute pain of right wrist, Arthritis Primary Care Provider: Julio Hackett ED Provider: Merritt Del Rosario Home Meds and New Rx's Prescriptions: New lidocaine [Lidoderm] 1 PATCH patch 1 patch Topical Q24H Qty: 4 RF: 0 No Action paroxetine HCl 30 mg tablet 30 mg PO DAILY Qty: 90 RF: 3 clopidogrel 75 mg tablet 75 mg PO DAILY Qty: 90 RF: 3 isosorbide mononitrate 30 mg tablet extended release 24 hr 30 mg PO DAILY Qty: 90 RF: 3 metoprolol tartrate 25 mg tablet 25 mg PO BID Qty: 180 RF: 3 Prevnar 13 (PF) 0.5 mL syringe 0.5 ml IM ONCE Qty: 0.5 RF: 0 magnesium oxide 400 mg capsule 400 mg PO DAILY Qty: 30 RF: 3 Flovent HFA 110 mcg/actuation HFA aerosol inhaler 1 puff Inhalation BID Qty: 1 RF: 3 metoclopramide HCl [Reglan] 10 mg tablet 10 mg PO .ac and hs Qty: 120 RF: 1 aspirin [Aspir-81] 81 MG tablet,delayed release (DR/EC) 81 mg PO DAILY RF: 0 rosuvastatin [Crestor] 5 MG tablet 5 mg PO DAILY Qty: 90 RF: 3 omeprazole 20 MG capsule,delayed release(DR/EC) 20 mg PO DAILY Qty: 90 RF: 3 amlodipine 5 MG tablet 5 mg PO DAILY Qty: 90 RF: 3 blood-glucose meter [HiggleTouch UltraMini] 1 EACH kit 1 ea Miscellaneous DAILY Qty: 1 RF: 0 metformin 1,000 mg tablet 1,000 mg PO BID Qty: 180 RF: 3 OneTouch Verio strip .Route .MEDSUPPLY Qty: 200 RF: 3 nicotine 21 mg/24 hr patch 24 hour 1 patch TD DAILY RF: 0 salmeterol 50 mcg/dose blister with device 1 inh IH BID Qty: 60 RF: 5 nitroglycerin 0.4 mg tablet, sublingual 0.4 mg Sublingual q 5 minutes PRN (Reason: chest pain) Qty: 25 RF: 0 ipratropium-albuterol 0.5 mg-3 mg(2.5 mg base)/3 mL solution for nebulization 3 ml IH .q6 hrs Qty: 180 RF: 2 lancets [OneTouch Delica Lancets] 33 gauge misc 1 ea Miscellaneous DAILY Qty: 100 RF: 3 Stiolto Respimat 2.5-2.5 mcg/actuation mist 2 puff IH DAILY Qty: 4 RF: 2 Serevent Diskus 50 mcg/dose blister with device 1 inh IH BID Qty: 60 RF: 2 nicotine (polacrilex) 2 mg gum 2 mg BC .q2hprn Qty: 100 RF: 3 albuterol sulfate [ProAir HFA] 90 mcg/actuation HFA aerosol inhaler 2 puff Inhalation Q4H PRN Qty: 1 RF: 2 Jardiance 25 mg tablet 25 mg PO QAM Qty: 90 RF: 3 ferrous sulfate 325 mg (65 mg iron) tablet 325 mg PO BID Qty: 180 RF: 3 albuterol sulfate 2.5 mg /3 mL (0.083 %) solution for nebulization 2.5 mg IH QID PRN (Reason: shortness of breath or wheezing) Qty: 75 RF: 0 Discharge Instructions Instructions: Arthralgia (ED) Additional Instructions: At this time the x-ray shows no evidence of significant fracture. Please use Lidoderm patches as directed. Please apply the cream to your wrist twice daily. Use the wrist splint for support of your wrist. If you notice any worsening of your symptoms, or any new symptoms such as vomiting, diarrhea, fever, chills, shortness of breath, chest pain, numbness, weakness, or fainting , please return immediately to the emergency department for reevaluation. Please follow up with your primary care provider as soon as possible for reassessment and reeva luation. As always, it was a pleasure participating in your medical care today. Referrals: Julio Hackett [Primary Care Provider] - Medical Decision Making This is a pleasant 63-year-old male who presents today for evaluation of right wrist pain. 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 He had some notable achiness worse than normal at that time, however this morning he woke up and had significant pain in his right wrist. Worse with movement. Mild swelling is present in the wrist. Pain is worsened with movement and palpation of the wrist. No evidence of deformity, swelling or tenderness in the forearm or elbow or fingers. Brisk capillary refill is noted, normal radial pulse bilaterally. No evidence of vascular compromise as the patient demonstrates good capillary refill and normal pulses. No signs of significant claudication, or evidence of cyanosis or blue color. Signs and symptoms are concerning for excessive arthritis pain, however mild gout is certainly also in the differential. We will treat with topical Lidoderm patch, Voltaren cream, and xray 12:11 PM X-ray results have returned, and per Dr. Dickerson there is no evidence of acute fracture. The patient is feeling much better with the Voltaren cream and the Lidoderm patch. I do feel that he has a notable exacerbation of localized arthritis to his wrist. Pain is not out of proportion, no signs of severe tophaceous gout. No evidence of vascular abnormality or neurovascular compromise. We will continue the Voltaren cream and Lidoderm patch on an outpatient basis. We will give a wrist splint for support. I have extensively reviewed the treatment plan and discharge instructions with the patient. I have addressed all patient concerns at this time. The patient was made aware of what symptoms to monitor for that would warrant a return to the emergency department. Discussed the plan with the patient, they demonstrate verbal understanding and agreement with our assessment and plan at this time. HPI General Date/Time Provider Initiated Documentation: 06/01/19 11:06 . [facility] Narrative: This is a 63-year-old male with past medical history of COPD, peripheral vascular disease, hypertension, who presents today for evaluation of right wrist pain. 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 He is right-hand dominant. Last night he noticed that he had some significant achiness in his right wrist, and by this morning it significantly worsened. 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 He denies any trauma to it. He has taken some Tylenol but this is not improved his symptoms. He denies any history of gout. He denies any IV illicit drug use, or other complaints. Pain is made worse with movement. Pain radiates from the right wrist towards the right elbow. He does have some achiness in his right shoulder with movement, but he states that this feels just like his chronic arthritis. He denies any history of cardiac disease, chest heaviness, chest tightness, numbness or tingling, or weakness peer Related Data Home Medications Medication Instructions Recorded Confirmed aspirin [Aspir-81] 81 mg PO DAILY tab-cap NS 01/09/15 06/01/19 rosuvastatin [Crestor] 5 mg PO DAILY #90 tab-cap 03/24/18 06/01/19 omeprazole 20 mg PO DAILY #90 tab-cap 04/15/18 06/01/19 amlodipine 5 mg PO DAILY #90 tab-cap 05/27/18 06/01/19 blood-glucose meter [HiggleTouch #1 kit 07/31/18 02/19/19 UltraMini] metformin 1,000 mg tablet 1,000 mg PO BID #180 tab 08/07/18 06/01/19 blood sugar diagnostic strips #200 each 11/10/18 02/19/19 clopidogrel 75 mg tablet 75 mg PO DAILY #90 tab-cap 11/17/18 06/01/19 isosorbide mononitrate ER 30 mg 30 mg PO DAILY #90 tab-cap 11/17/18 06/01/19 tablet,extended release 24 hr metoprolol tartrate 25 mg tablet 25 mg PO BID #180 tab-cap 11/17/18 06/01/19 paroxetine 30 mg tablet 30 mg PO DAILY #90 tab-cap 11/17/18 06/01/19 pneumococcal 13-hillary conj 0.5 ml IM ONCE #0.5 ml 11/17/18 02/19/19 vaccine-dip crm (PF) 0.5 mL IM syringe nicotine 21 mg/24 hr daily 1 patch TD DAILY 01/05/19 06/01/19 transdermal patch salmeterol 50 mcg/dose blister 1 inh IH BID #60 each 01/22/19 02/19/19 powder for inhalation albuterol sulfate 2.5 mg IH QID PRN #75 ml 01/25/19 06/01/19 ipratropium-albuterol 0.5 mg-3 3 ml IH .q6 hrs #180 ml 01/25/19 06/01/19 mg(2.5 mg base)/3 mL nebulization soln lancets 33 gauge #100 ea 01/25/19 02/19/19 nitroglycerin 0.4 mg sublingual 0.4 mg SUBLINGUAL q 5 minutes PRN 01/25/19 06/01/19 tablet #25 tab-cap salmeterol 50 mcg/dose blister 1 inh IH BID #60 each 01/25/19 06/01/19 powder for inhalation tiotropium 2.5 mcg-olodaterol 2.5 2 puff IH DAILY #4 gm 01/25/19 06/01/19 mcg/actuation mist for inhalation magnesium oxide 400 mg capsule 400 mg PO DAILY #30 cap 01/28/19 06/01/19 nicotine (polacrilex) 2 mg gum 2 mg BC .q2hprn #100 each 02/18/19 06/01/19 fluticasone propionate 110 1 puff INHALATION BID #1 inhaler 02/19/19 06/01/19 mcg/actuation HFA aerosol inhaler metoclopramide 10 mg tablet 10 mg PO .ac and hs #120 tab 02/19/19 06/01/19 albuterol sulfate HFA 90 2 puff INHALATION Q4H PRN #1 03/15/19 06/01/19 mcg/actuation aerosol inhaler inhaler empagliflozin 25 mg tablet 25 mg PO QAM #90 tab 03/31/19 06/01/19 ferrous sulfate 325 mg (65 mg 325 mg PO BID #180 tab 04/29/19 06/01/19 iron) tablet lidocaine [Lidoderm] 1 patch TOPICAL Q24H #4 patch 06/01/19 Previous Rx's Medication Instructions Recorded rosuvastatin [Crestor] 5 mg PO DAILY #90 tab-cap 03/24/18 omeprazole 20 mg PO DAILY #90 tab-cap 04/15/18 amlodipine 5 mg PO DAILY #90 tab-cap 05/27/18 blood-glucose meter [OneTouch #1 kit 07/31/18 UltraMini] metformin 1,000 mg tablet 1,000 mg PO BID #180 tab 08/07/18 blood sugar diagnostic strips #200 each 11/10/18 clopidogrel 75 mg tablet 75 mg PO DAILY #90 tab-cap 11/17/18 isosorbide mononitrate ER 30 mg 30 mg PO DAILY #90 tab-cap 11/17/18 tablet,extended release 24 hr metoprolol tartrate 25 mg tablet 25 mg PO BID #180 tab-cap 11/17/18 paroxetine 30 mg tablet 30 mg PO DAILY #90 tab-cap 11/17/18 pneumococcal 13-hillary conj 0.5 ml IM ONCE #0.5 ml 11/17/18 vaccine-dip crm (PF) 0.5 mL IM syringe salmeterol 50 mcg/dose blister 1 inh IH BID #60 each 01/22/19 powder for inhalation albuterol sulfate 2.5 mg IH QID PRN #75 ml 01/25/19 ipratropium-albuterol 0.5 mg-3 3 ml IH .q6 hrs #180 ml 01/25/19 mg(2.5 mg base)/3 mL nebulization soln lancets 33 gauge #100 ea 01/25/19 nitroglycerin 0.4 mg sublingual 0.4 mg SUBLINGUAL q 5 minutes PRN 01/25/19 tablet #25 tab-cap salmeterol 50 mcg/dose blister 1 inh IH BID #60 each 01/25/19 powder for inhalation tiotropium 2.5 mcg-olodaterol 2.5 2 puff IH DAILY #4 gm 01/25/19 mcg/actuation mist for inhalation magnesium oxide 400 mg capsule 400 mg PO DAILY #30 cap 01/28/19 nicotine (polacrilex) 2 mg gum 2 mg BC .q2hprn #100 each 02/18/19 fluticasone propionate 110 1 puff INHALATION BID #1 inhaler 02/19/19 mcg/actuation HFA aerosol inhaler metoclopramide 10 mg tablet 10 mg PO .ac and hs #120 tab 02/19/19 albuterol sulfate HFA 90 2 puff INHALATION Q4H PRN #1 03/15/19 mcg/actuation aerosol inhaler inhaler empagliflozin 25 mg tablet 25 mg PO QAM #90 tab 03/31/19 ferrous sulfate 325 mg (65 mg 325 mg PO BID #180 tab 04/29/19 iron) tablet lidocaine [Lidoderm] 1 patch TOPICAL Q24H #4 patch 06/01/19 Allergies Allergy/AdvReac Type Severity Reaction Status Date / Time pravastatin AdvReac memory loss Unverified 06/01/19 11:16 General Stated Complaint: Orthopedic JUANITA: 4 Review of Systems Review of Systems All systems reviewed & are unremarkable except as noted in HPI and below PFSH Social History (Reviewed 01/25/19 @ 14:26 by JULIANNA Singh Smoking/Tobacco Use Status: Current every day Tobacco Type: cigarettes Smoking cigarettes per day: 30 Alcohol Intake: current Alcohol Intake frequency: 0-2 drinks per day Alcohol type: beer Drug use: Never Substance use type: does not use 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 3.ENT: Atraumatic external nose and ears. Moist MM. Neck: Symmetric, trachea midline, No thyromegaly. 4.CVS: +S1/S2, No murmurs or gallops. Peripheral pulses 2+ and equal in all extremities. Brisk capillary refill in all extremities. 5.RESP: Unlabored respiratory effort. Clear to auscultation bilaterally. No wheezes rales or rhonchi 6.GI: Soft, Nontender/Nondistended, No hepatosplenomegaly. No guarding or rebound. 7.MSK: Normocephalic/Atraumatic, Extremities w/o deformity. No cyanosis or clubbing. Notable tenderness in the patient's right wrist on palpation throughout. Mild swelling in the proximal hand and wrist. No significant swelling in the forearm, elbow or shoulder. Patient demonstrates good range of motion for the fingers, intact two-point discrimination, brisk capillary refill is present in all fingers of the right hand. Radial pulses +2 bilaterally. Notable worsening of the patient's pain with passive and active movement of the wrist. No pain on palpation of the mid forearm or elbow. No proximal pain in the muscle bodies with movement of the wrist. No evidence of significant bruising or trauma. Range of motion for the elbow and shoulder demonstrate no significant abnormalities. Achiness is slightly worsened with movement of the shoulder. No evidence of crepitus or significant fracture. 8.Skin: Warm, Dry. No rashes or lesions. 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 Sensation grossly intact, no focal neurologic deficits. 10.Psych: (AAO) x3. Appropriate mood and affect Course Vital Signs Temperature 37.0 C 06/01/19 11:11 Pulse 74 06/01/19 11:11 Respiratory Rate 18 06/01/19 11:11 Blood Pressure 161/68 H 06/01/19 11:11 Pulse Oximetry 95 06/01/19 11:11 Temperature 37.0 C 06/01/19 11:11 Pulse 74 06/01/19 11:11 Respiratory Rate 18 06/01/19 11:11 Blood Pressure 161/68 H 06/01/19 11:11 Blood Pressure Position Sitting 06/01/19 11:11 Pulse Oximetry 95 06/01/19 11:11 Oxygen Delivery Method Room Air 06/01/19 11:11 Oxygen Flow Rate 0 06/01/19 11:11 Pain Level 10 06/01/19 11:11
[2019-06-01] MEDS: DICLOFENAC 1% GEL 100 GM TUBE TP (11:27)
[2019-06-01] MEDS: Lidocaine 5% Patch 1 PATCH TP (11:28)
--- NOTE | 2019-06-01 11:43 | DI.RAD_ITS ---
SYMPTOM/DIAGNOSIS: NOTABLE NON TRAUMATIC RT WRIST PAIN RIGHT WRIST: There is soft tissue laceration seen around the ulnar aspect. There is a density seen adjacent to the ulna which could represent a radiopaque foreign body versus old calcification. Small calcification is also seen at the dorsal aspect of the wrist at the proximal carpal row. No acute fracture is seen. IMPRESSION: No evidence of an acute fracture. Soft tissue injury.
== END 2019-06-01 12:32 | disposition home or self-care (01) ==
LOC: ER 12:36
PROVIDERS: Emergency Provider Student in an Organized Health Care Education/Training Program; PCP Family Medicine
DX: M25.531 Pain in right wrist (principal); M19.031 Primary osteoarthritis, right wrist
CPT/HCPCS: 29125; 99283; 73110; L3908

== ENCOUNTER 2019-06-10 02:02 | Outpatient (CLI) | payer MEDICARE, MEDICAID, SELFPAY ==
[2019-06-10 11:14] LABS: Hemoglobin A1C 7.2 % (4.5-6.2)
[2019-06-10 11:43] LABS: Cholesterol 239 mg/dL (50-200); HDL Cholesterol 33 mg/dL (40-60); Triglyceride 700 mg/dL (30-150)
[2019-06-10 12:00] LABS: LDL CHOLESTEROL 105 mg/dL (<100)
[2019-06-10 12:07] LABS: ESR 18 MM/HR (1-20)
== END 2019-06-10 02:22 ==
PROVIDERS: PCP Family Medicine; Visit Provider Family Medicine
DX: E11.9 Type 2 diabetes mellitus without complications (principal); M25.539 Pain in unspecified wrist
CPT/HCPCS: 36415; 80061; 83721; 85652; 83036; 84550

== ENCOUNTER 2019-11-12 08:39 | Outpatient (CLI) | payer MEDICARE, MEDICAID, SELFPAY ==
[2019-11-12 12:16] LABS: Cholesterol 234 mg/dL (<200); HDL Cholesterol 42 mg/dL (40-60); Triglyceride 423 mg/dL (<150)
[2019-11-12 12:17] LABS: Hemoglobin A1C 6.2 % (4.5-6.2)
[2019-11-12 12:32] LABS: LDL CHOLESTEROL 124 mg/dL (<100)
== END 2019-11-12 08:59 ==
PROVIDERS: PCP Family Medicine; Visit Provider Family Medicine
DX: E78.5 Hyperlipidemia, unspecified (principal); E11.9 Type 2 diabetes mellitus without complications
CPT/HCPCS: 36415; 80061; 83721; 83036

== ENCOUNTER 2020-09-06 09:36 | Outpatient (CLI) | payer MEDICARE, MEDICAID, SELFPAY ==
[2020-09-06 12:25] LABS: HGB 14.4 g/dL (13.5-17.5); MCH 28.2 pg (27.0-33.0); MCHC 33.5 % (32.0-36.0); MCV 84.3 fL (80-95); Platelet Count 290 10^3/uL (130-400); RDW 14.5 % (11.8-14.1); RDW-SD 44.2 fL; WBC 8.47 10^3/uL (4.4-10.8)
[2020-09-06 12:34] LABS: CREATININE 0.91 mg/dL (0.70-1.30); Potassium 4.5 mmol/L (3.5-5.1); Triglyceride 329 mg/dL (<150)
[2020-09-06 13:02] LABS: Hemoglobin A1C 5.7 % (<5.7)
== END 2020-09-06 09:56 ==
PROVIDERS: PCP Family Medicine; Visit Provider Family Medicine
DX: I10 Essential (primary) hypertension (principal); R73.9 Hyperglycemia, unspecified; E87.1 Hypo-osmolality and hyponatremia
CPT/HCPCS: 36415; 85027; 82565; 83036; 84132; 84478

== ENCOUNTER 2020-12-13 01:37 | Outpatient (CLI) | payer MEDICARE, MEDICAID, SELFPAY ==
--- NOTE | 2020-12-13 07:00 | DI.CT_ITS ---
EXAM: CT CHEST W CLINICAL HISTORY: reassess lung nodules,RT LUNG, R91.1. TECHNIQUE: Multi planar reconstructions were performed. CONTRAST MATERIAL: Omnipaque 350; 100 cc FINDINGS: CHEST: LUNGS: In the right lung there is now a concerning pleural based mass in the lateral aspect of the ri ght upper lobe which measures 4 by 2.5 by 3.6 centimetres, suspicious for malignancy. No associated overlying rib destruction nor pleural effusion. Slightly further down in the right lung there is simone e thickening along the major fissure noted, as well as a spiculated nodule measuring 10 x 11 millimet ers, not previously present. There is no pleural effusion. In the opposite-left lung there is a faint 7 x 6 millimeter nodular density in the left upper lobe (s eries 2/image 30). There are no other focal left lung findings nor pleural effusion. MEDIASTINUM: There is no hilar adenopathy. No significant subcarinal adenopathy. There are slightly prominent lymph nodes in anterior left para aortic fat in the mediastinum which appear unchanged fro m December 2018. Right paratracheal lymph nodes are also unchanged. There is no supraclavicular garrison opathy. There is no axillary adenopathy. Visualized thyroid unremarkable. CARDIAC: Heart size is normal. There is very mild thickening of the anterior pericardium, inferiorly . There is no large pericardial effusion.Caliber of the thoracic aorta is within normal limits. VISUALIZED UPPER ABDOMEN:Nodular densities noted in both adrenal glands appear unchanged from the [place] or study of 2019. OSSEOUS: No significant osseous lesions.. IMPRESSION: 1. Compared to the prior CT scan of December 2018 there is now an ominous pleural based solid mass in the peripheral aspect of the right upper lobe which measures 4 x 2.5 x 3.6 cm, highly suspicious for malignancy. There is no overlying rib destruction or pleural effusion. 2. Smaller fissure based densities in the right lung are also noted. These also acquired close follo w-up. 3. There is a faint 7 x 6 millimeter nodular density also noted in the left upper lobe which will als o require follow-up. No left pleural effusion. 4. There is no hilar adenopathy. Enlarged lymph nodes in the right side of the mediastinum adjacent to the aortic arch are unchanged from the December 2018 study. 5. Nodular densities in both adrenal glands are unchanged from 2 years ago and therefore most probab ly not metastatic. RADIATION DOSE DELIVERED: 559.1mGy.cm Total DLP DATA REPOSITORY: All CT scans at this facility are submitted to the National Radiology Data Registry (NRDR) Dose Index Registry (DIR) with the [employer] (ACR). RADIATION OPTIMIZATION: All CT scans at this facility use at least one of these dose optimization te chniques: automated exposure control; mA and/or kV adjustment per patient size (includes targeted exa ms where dose is matched to clinical indication); or iterative reconstruction.
[2020-12-13] MEDS: Omnipaque 350 MG/ML 100 ML BTL IJ (09:16)
[2020-12-13] MEDS: Normal Saline - Diluent 50 ML VIAL IV (09:17)
== END 2020-12-13 01:57 ==
PROVIDERS: PCP Family Medicine; Visit Provider Family Medicine
DX: R91.1 Solitary pulmonary nodule (principal)
CPT/HCPCS: 71260; J3490

== ENCOUNTER 2021-01-11 01:22 | Outpatient (CLI) | payer MEDICARE, MEDICAID, SELFPAY ==
--- NOTE | 2021-01-11 | DI.CT_ITS ---
EXAM: CT HEAD WO/W CLINICAL HISTORY: H/O RUL LUNG NODULE,EVALUATE FOR METS,R91.1. TECHNIQUE: Imaging Protocol: Axial computed tomography images with coronal and sagittal reformatted images were created and reviewed. CONTRAST MATERIAL: Intravenous: Omnipaque 350 Contrast volume:100 cc COMPARISON: CT CT HEAD WO from 01/25/2019 FINDINGS: Ventricles and Extra axial spaces: Normal in size and morphology for the patient's age. Hemorrhage: None. Cerebral parenchyma: Normal. Enhancement: No suspicious enhancement. Midline shift: None. Brainstem/Cerebellum: Normal. Calvarium: Normal. Visualized Paranasal sinuses/Mastoids: Chronic roberson sinusitis, similar to previous exam. Mastoid air cells clear. IMPRESSION: Sinus disease. No evidence metastatic disease or other acute abnormality. RADIATION DOSE DELIVERED: 1,341.32mGy.cm Total DLP DATA REPOSITORY: All CT scans at this facility are submitted to the National Radiology Data Registry (NRDR) Dose Index Registry (DIR) with the [employer] (ACR). RADIATION OPTIMIZATION: All CT scans at this facility use at least one of these dose optimization te chniques: automated exposure control; mA and/or kV adjustment per patient size (includes targeted exa ms where dose is matched to clinical indication); or iterative reconstruction.
[2021-01-11 13:03] LABS: BUN 14 mg/dL (7-18); CREATININE 1.2 mg/dL (0.70-1.30)
[2021-01-11] MEDS: Normal Saline - Diluent 50 ML VIAL IV (13:52)
[2021-01-11] MEDS: Omnipaque 350 MG/ML 100 ML BTL IJ (13:52)
[2021-01-11] MEDS: Normal Saline Flush 10 ML SYR IVP (13:53)
== END 2021-01-11 01:23 ==
LOC: DI 01:22
PROVIDERS: PCP Family Medicine; Visit Provider Surgery
DX: J32.4 Chronic pansinusitis (principal)
CPT/HCPCS: 84520; 70470; 82565; J3490

== ENCOUNTER 2021-04-19 17:09 | Emergency (ER) | payer MEDICARE, MEDICAID, SELFPAY ==
--- NOTE | 2021-04-19 17:00 | RT.EKG_ITS ---
APPROVED REPORT Exam: Resting ECG Reason for Exam: Aphasia Patient Location: E HR:71 bpm ECG Measurements Heart Rate 71 AXIS NM 178 P 40 QRSd 85 QRS 61 QT 400 T 54 QTc 435 Conclusion Sinus rhythm...normal P axis, V-rate 60- 99. Significant movement in V2 and V3. No I have reviewed and interpreted ECG and agree with software generated interpretation. STEMI.
--- NOTE | 2021-04-19 17:00 | DI.CT_ITS ---
Exam(s) CT BRAIN NECK CTA EXAM: CT BRAIN NECK CTA CLINICAL HISTORY: Intermittent aphasia, R/O CVA. TECHNIQUE: Imaging Protocol: Axial CT angiography was performed with multi-slice acquisition and mu lti-planar and/or 3D reconstructions. CONTRAST MATERIAL: Intravenous: Omnipaque 350 Contrast volume:structured data in ml FINDINGS: CT angiography of the cervical cranial region was performed according to the usual protocol with intr avenous infusion of 100 cc of Omnipaque 350.. Initial noncontrast scanning of the head is unremarkable except for mild diffuse cerebral atrophy.. Note is again made of previously described right upper lobe lung mass, partially visualized, as noted on examination of December 21. There is a new pleural based mass which involves posterior aspect o f the right 4th rib, consistent with metastatic disease from lung carcinoma.. There is a left subcla vian stent there is no evidence of a cervical mass or adenopathy. The tracheal laryngeal structures a ppear intact. Note is made severe to near occlusive stenosis of the proximal left internal carotid artery, this is not optimally visualized. Otherwise there is no significant stenosis of the common or internal carot id arteries extra cranially. The vertebral arteries are unremarkable in appearance in the cervical region with no evidence of aneu rysm, stenosis, or dissection. There is tapering of the distal internal carotid arteries bilaterally in their cavernous portion. Th ere are occlusions or near occlusions of the middle cerebral arteries proximally bilaterally. There is some collateral flow to sylvian branches on the left but little flow to sylvian branches of right middle cerebral artery. There is near occlusive stenosis of the left posterior cerebral artery in the P2 segment. Intracranial vertebral arteries and basilar artery appear normal with no evidence of aneurysm, stenos is or dissection. No aneurysm identified in the region of the [id number]. No enhancing brain lesion identified. 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 Presumed right upper lobe lung carcinoma. New development of pleural based presumably metastatic mass involving right posterior 4th rib. RADIATION DOSE DELIVERED: 2,216.64mGy.cmTotal DLP 2,216.64mGy.cm Total DLP DATA REPOSITORY: All CT scans at this facility are submitted to the National Radiology Data Registry (NRDR) Dose Index Registry (DIR) with the [employer] (ACR). RADIATION OPTIMIZATION: All CT scans at this facility use at least one of these dose optimization te chniques: automated exposure control; mA and/or kV adjustment per patient size (includes targeted exa ms where dose is matched to clinical indication); or iterative reconstruction.
--- NOTE | 2021-04-19 17:00 | DI.RAD_ITS ---
Exam(s) XR CHEST 2V PA LATERAL EXAM: XR CHEST 2V PA LATERAL CLINICAL HISTORY: Hx Lung Ca, SOB TECHNIQUE: COMPARISON: CR XR CHEST 2V PA LATERAL from 01/25/2019 FINDINGS: Heart is not enlarged. There is a right upper lobe pulmonary mass as noted on prior chest CT examina tions. No other convincing pulmonary mass identified, however there is possible faint radiopacity ov er the right lower lobe which could represent intrapulmonary metastatic disease. No focal consolidation. No pleural effusion. IMPRESSION: No evidence of acute consolidation. Known right upper lobe lung mass. Possible new right lower lobe lung mass. RADIATION DOSE DELIVERED: Total DLP
[2021-04-19 17:12] VITALS: BP 132/67; PULSE 74; RESP 30; TEMP 37; O2SAT 97
--- NOTE | 2021-04-19 17:17 | W.ED.GENAD ---
Discharge Plan Disposition Patient Disposition: AGAINST MEDICAL ADVICE Condition: Serious Discharge Details Clinical Impression: Brain TIA, Lung nodule Primary Care Provider: Julio Hackett ED Provider: Diann Shipman Home Meds and New Rx's Prescriptions: No Action Flovent HFA 110 mcg/actuation HFA aerosol inhaler 1 puff Inhalation BID Qty: 1 RF: 8 Jardiance 25 mg tablet 25 mg PO QAM Qty: 90 RF: 3 (DME) OneTouch Verio test strips Strip See Dose Instructions .Route .MEDSUPPLY Qty: 200 RF: 3 albuterol sulfate [ProAir HFA] 90 mcg/actuation HFA aerosol inhaler 2 puff Inhalation Q4H PRN Qty: 1 RF: 8 ferrous sulfate 325 mg (65 mg iron) tablet 325 mg PO BID Qty: 180 RF: 3 nitroglycerin 0.4 mg tablet, sublingual 0.4 mg Sublingual q 5 minutes PRN (Reason: chest pain) Qty: 25 RF: 0 magnesium oxide 400 mg magnesium capsule 400 mg PO DAILY Qty: 90 RF: 3 amlodipine 5 mg tablet 5 mg PO DAILY Qty: 90 RF: 3 metformin 1,000 mg tablet 1,000 mg PO BID Qty: 180 RF: 3 omeprazole 20 mg capsule,delayed release(DR/EC) 20 mg PO DAILY Qty: 90 RF: 3 rosuvastatin [Crestor] 5 mg tablet 5 mg PO DAILY Qty: 90 RF: 3 aspirin [Aspir-81] 81 MG tablet,delayed release (DR/EC) 81 mg PO DAILY RF: 0 (DME) blood-glucose meter [Domouch UltraMini] 1 EACH kit 1 ea Miscellaneous DAILY Qty: 1 RF: 0 ipratropium-albuterol 0.5 mg-3 mg(2.5 mg base)/3 mL solution for nebulization 3 ml IH .q6 hrs Qty: 180 RF: 2 (DME) lancets [OneTouch Delica Lancets] 33 gauge misc 1 ea Miscellaneous DAILY Qty: 100 RF: 3 icosapent ethyl [Vascepa] 1 gram capsule 2 gm PO BID Qty: 360 RF: 3 metoclopramide HCl [Reglan] 10 mg tablet 10 mg PO .ac and hs Qty: 120 RF: 11 fenofibrate nanocrystallized [Tricor] 145 mg tablet 145 mg PO DAILY Qty: 90 RF: 3 Anoro Ellipta 62.5-25 mcg/actuation blister with device 1 inh IH DAILY Qty: 60 RF: 5 isosorbide mononitrate 30 mg tablet extended release 24 hr 30 mg PO DAILY Qty: 90 RF: 3 paroxetine HCl 30 mg tablet 30 mg PO DAILY Qty: 90 RF: 3 clopidogrel 75 mg tablet 75 mg PO DAILY Qty: 90 RF: 3 metoprolol tartrate 25 mg tablet 25 mg PO BID Qty: 180 RF: 3 paroxetine HCl 40 mg tablet 40 mg PO DAILY Qty: 90 RF: 3 albuterol sulfate 2.5 mg /3 mL (0.083 %) solution for nebulization 2.5 mg IH QID PRN (Reason: shortness of breath or wheezing) Qty: 75 RF: 0 Discharge Instructions Instructions: Transient Ischemic Attack (ED) Additional Instructions: At this time you have decided to leave AGAINST MEDICAL ADVICE. I recommended admission and/or transfer for neurology evaluation and evaluation of a worsening lung nodule which has now involved in area of your fourth rib. You have severe narrowing in the arteries in your brain which may be the cause for your symptoms and puts you at an increased risk for a stroke. Your magnesium level was also extremely low today. Please continue to take the magnesium supplement and a daily 325 mg aspirin. Please follow-up with your primary care provider in the next 1 to 2 days. Return to the ED for any worsening headache, neurological symptoms or any concerns. Referrals: Julio Hackett [Primary Care Provider] - Discharge Data Discharge Date/Time-TO BE ENTERED AT DEPARTURE: 04/19/21 20:35 Medical Decision Making 55-year-old male presents to the ER with chief complaint of intermittent aphasia which began this afternoon. None currently upon initial exam. He has no complaints of headaches no blurry vision denies any numbness tingling or weakness to his extremities. He denies any facial droop or facial numbness. He has no focal neuro deficits upon initial exam. He is alert and oriented x4. He does have a history of lung cancer and has biweekly chemo treatment. He is still a daily smoker. He also has a past medical history of asthma, CVA, hypertension, high cholesterol, COPD, coronary artery disease, cranial nerve IV palsy diabetes, GERD also surgical history includes an aortic graft placement and a stent placement. Labs ordered including cardiac work-up including serial troponins. White blood cell count of 3.16 hemoglobin 9.2, hematocrit 26.8, lymphocytes 1.0 sodium is 128, potassium 4.2 chloride 93, anion gap 11.3, BUN 14 creatinine 1.1 GFR greater than 60. Calcium is 8.2, magnesium is 0.7 albumin is 3.3 urinalysis within normal limits except for some 500 mg of urine glucose 1937: Call from from [facility] Radiologist, she reports notable high grade stenosis to the R MCA and left ICA, also noted worsening lung nodule with new bone lesion to right 4th rib measuring 3 cm. 2002: Discussed CT findings with patient and and worsening chest nodule patient verbalized understanding. I did discuss my recommendation for admission and/or transfer to [facility] regarding his hypomagnesemia and the high-grade stenosis noted on his head CT and worsening lung nodule. Patient verbalizes understanding of risk and requests being discharged home. I did discuss he is increased risk for having a cerebral vascular accident and worsening condition including up to disability and , him and his both verbalized understanding. Patient is still adamant that he would like to be discharged home. At this time he is refusing admission he is agreeable to allow us to draw his second troponin and stay for the rest of the IV infusion of the magnesium. IMPRESSION: High-grade stenosis versus short segment occlusion in the bilateral middle cerebral arteries and in the left posterior cerebral artery as described. These findings may be secondary to chronic atherosclerotic disease versus or acute versus chronic vasculitis. Correlate with clinical findings. IMPRESSION: 1. Severe stenosis at the proximal left ICA, secondary to atherosclerotic plaque. 2. No dissection or occlusion in the neck. LYDIA HELTON 3. Partially visualized right lung mass as seen on prior chest CT. 4. Interval development of right 4th rib lesion since the prior chest CT, suggestive of disease progression. Patient requesting to leave AMA. The patient appears clinically sober and is not under the influence of any known substances. Discussed risks and benefits with patient. Patient verbalizes understanding of situation and the risks of leaving including worsening condition, developing disability, including but not limited to . Discussed results of labs and imaging, if they were performed and recommendations for further treatment and/or observation. The patient verbalizes understanding of the results discussed. I did discuss findings with patients family at involve family and situation discussed. At this time patient has opted to leave against medical advice. Patient is alert and oriented and has the capacity to make own decisions. Encourage patient to reconsider and to be admitted he declines at this time. Patient left AMA the presence of his . Patient was placed on the care management list to ensure PCP follow-up regarding our findings tonight. HPI General Mode of arrival: EMS. Date/Time Provider Initiated Documentation: 04/19/21 17:09. Limitations to Documentation: no limitations. Information obtained by: patient and EMS. HPI Narrative: 55-year-old male presents to the ER with chief complaint of intermittent aphasia which began this afternoon. None currently upon initial exam. He has no complaints of headaches no blurry vision denies any numbness tingling or weakness to his extremities. He denies any facial droop or facial numbness. He has no focal neuro deficits upon initial exam. He is alert and oriented x4. He does have a history of lung cancer and has biweekly chemo treatment. He is still a daily smoker. He also has a past medical history of asthma, CVA, hypertension, high cholesterol, COPD, coronary artery disease, cranial nerve IV palsy diabetes, GERD also surgical history includes an aortic graft placement and a stent placement. Related Data Home Medications Medication Instructions Recorded Confirmed aspirin [Aspir-81] 81 mg PO DAILY tab-cap NS 01/09/15 04/19/21 blood-glucose meter [OneTouch #1 kit 07/31/18 04/19/21 UltraMini] albuterol sulfate 2.5 mg IH QID PRN #75 ml 01/25/19 04/19/21 ipratropium 0.5 mg-albuterol 3 mg 3 ml IH .q6 hrs #180 ml 01/25/19 04/19/21 (2.5 mg base)/3 mL nebulization soln lancets 33 gauge #100 ea 01/27/20 04/19/21 amlodipine 5 mg tablet 5 mg PO DAILY #90 tab-cap 06/06/20 04/19/21 magnesium oxide 400 mg PO DAILY #90 cap 06/06/20 04/19/21 metformin 1,000 mg tablet 1,000 mg PO BID #180 tab 06/06/20 04/19/21 omeprazole 20 mg capsule,delayed 20 mg PO DAILY #90 tab-cap 06/06/20 04/19/21 release rosuvastatin 5 mg tablet 5 mg PO DAILY #90 tab-cap 06/06/20 04/19/21 icosapent ethyl 1 gram capsule 2 gm PO BID #360 cap 06/19/20 04/19/21 metoclopramide HCl 10 mg tablet 10 mg PO .ac and hs #120 tab 07/25/20 04/19/21 fenofibrate nanocrystallized 145 145 mg PO DAILY #90 tab 09/06/20 04/19/21 mg tablet umeclidinium 62.5 mcg-vilanterol 1 inh IH DAILY #60 each 11/06/20 04/19/21 25 mcg/actuation powdr for inhalation isosorbide mononitrate 30 mg 30 mg PO DAILY #90 tab-cap 11/10/20 04/19/21 tablet,extended release 24 hr paroxetine HCl 30 mg tablet 30 mg PO DAILY #90 tab-cap 11/27/20 04/19/21 clopidogrel 75 mg tablet 75 mg PO DAILY #90 tab-cap 01/19/21 04/19/21 metoprolol tartrate 25 mg tablet 25 mg PO BID #180 tab-cap 02/08/21 04/19/21 paroxetine HCl 40 mg tablet 40 mg PO DAILY #90 tab 02/21/21 04/19/21 albuterol sulfate 90 mcg/actuation 2 puff INHALATION Q4H PRN #1 03/06/21 04/19/21 aerosol inhaler inhaler blood sugar diagnostic #200 each 03/06/21 04/19/21 empagliflozin 25 mg tablet 25 mg PO QAM #90 tab 03/06/21 04/19/21 ferrous sulfate 325 mg (65 mg 325 mg PO BID #180 tab 03/06/21 04/19/21 iron) tablet fluticasone propionate 110 1 puff INHALATION BID #1 inhaler 03/06/21 04/19/21 mcg/actuation HFA aerosol inhaler nitroglycerin 0.4 mg sublingual 0.4 mg SUBLINGUAL q 5 minutes PRN 03/06/21 04/19/21 tablet #25 tab-cap Previous Rx's Medication Instructions Recorded blood-glucose meter [OneTouch #1 kit 07/31/18 UltraMini] albuterol sulfate 2.5 mg IH QID PRN #75 ml 01/25/19 ipratropium 0.5 mg-albuterol 3 mg 3 ml IH .q6 hrs #180 ml 01/25/19 (2.5 mg base)/3 mL nebulization soln lancets 33 gauge #100 ea 01/27/20 amlodipine 5 mg tablet 5 mg PO DAILY #90 tab-cap 06/06/20 magnesium oxide 400 mg PO DAILY #90 cap 06/06/20 metformin 1,000 mg tablet 1,000 mg PO BID #180 tab 06/06/20 omeprazole 20 mg capsule,delayed 20 mg PO DAILY #90 tab-cap 06/06/20 release rosuvastatin 5 mg tablet 5 mg PO DAILY #90 tab-cap 06/06/20 icosapent ethyl 1 gram capsule 2 gm PO BID #360 cap 06/19/20 metoclopramide HCl 10 mg tablet 10 mg PO .ac and hs #120 tab 07/25/20 fenofibrate nanocrystallized 145 145 mg PO DAILY #90 tab 09/06/20 mg tablet umeclidinium 62.5 mcg-vilanterol 1 inh IH DAILY #60 each 11/06/20 25 mcg/actuation powdr for inhalation isosorbide mononitrate 30 mg 30 mg PO DAILY #90 tab-cap 11/10/20 tablet,extended release 24 hr paroxetine HCl 30 mg tablet 30 mg PO DAILY #90 tab-cap 11/27/20 clopidogrel 75 mg tablet 75 mg PO DAILY #90 tab-cap 01/19/21 metoprolol tartrate 25 mg tablet 25 mg PO BID #180 tab-cap 02/08/21 paroxetine HCl 40 mg tablet 40 mg PO DAILY #90 tab 02/21/21 albuterol sulfate 90 mcg/actuation 2 puff INHALATION Q4H PRN #1 03/06/21 aerosol inhaler inhaler blood sugar diagnostic #200 each 03/06/21 empagliflozin 25 mg tablet 25 mg PO QAM #90 tab 03/06/21 ferrous sulfate 325 mg (65 mg 325 mg PO BID #180 tab 03/06/21 iron) tablet fluticasone propionate 110 1 puff INHALATION BID #1 inhaler 03/06/21 mcg/actuation HFA aerosol inhaler nitroglycerin 0.4 mg sublingual 0.4 mg SUBLINGUAL q 5 minutes PRN 03/06/21 tablet #25 tab-cap Allergies Allergy/AdvReac Type Severity Reaction Status Date / Time pravastatin AdvReac memory loss Verified 04/19/21 17:18 General Stated Complaint: CVA/TIA JUANITA: 2 Review of Systems Narrative: Constitutional: Negative for weight loss, alert and oriented, well groomed, normal body habitus, appears comfortable. HEENT: Denies trauma, headaches, blurry vision, nasal discharge, sore throat, trouble swallowing. Chest: Denies chest pain, palpitations, irregular rhythm. Respiratory: Denies cough, hemoptysis. Positive history of lung cancer, exertional shortness of breath which he reports is at his baseline. GI: Denies abdominal pain, nausea, vomiting, diarrhea, constipation. : Denies dysuria, hematuria, flank pain, rectal bleeding. Neuro: Denies dizziness, blurry vision, weakness, syncope, headache or facial numbness. She reports intermittent aphasia been unable to find the right words since this afternoon. Hematologic: Denies easy bruising, intolerance to heat or cold, hair loss. [facility] Medical History (Updated 04/19/21 @ 20:16 by Diann Shipman) COPD (chronic obstructive pulmonary disease) Coronary artery disease Cranial nerve IV palsy Diabetes GERD (gastroesophageal reflux disease) GERD (gastroesophageal reflux disease) HTN (hypertension) Hyperlipemia Hyperlipidemia Hypertension Lung cancer Peripheral vascular disease Surgical History AORTIC graft placement (03/21/17) Stent placement 02/05/17- [facility] [place]-LEFT SUBCLAVIAN ARTERY STENT Family History Mother Stomach cancer Father Heart disease Stroke Brother Meniere's disease Social History Smoking/Tobacco Use Status: Current every day Tobacco Type: cigarettes Tobacco: How many years used: 45 Quit status: considering quitting Smoking risk assessment performed?: Yes Alcohol Intake: current Alcohol Intake frequency: 0-2 drinks per day Alcohol type: beer Drug use: Socially Substance use type: does not use Caregiver/Support person: No Household members: significant other Housing: house Communication Needs: Corrective Lenses Do you need help understanding health information?: Never 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 Pets and animals: Yes Pets and animals: dog(s) Sexually active: No Do you think of yourself as: straight/heterosexual Current gender identity: male What is your relationship status?: How often do you talk on the phone with friends or family?: three or more times per week How often do you get together with friends or relatives?: decline to answer How often do you attend hoahaoism or latter-day services?: decline to answer Panel score (0-1 are the most socially isolated patients): 2 NHANES result reviewed/action taken: No What type of physical activity do you participate in: other Details: work Frequency: 3-4 times per week Special nirmala needs: No Seatbelt use: never Helmet use: No Drive intox or ride w/intox drivers' cash clerk: No Do you feel safe at home: Yes Do you feel safe in your relationship?: Yes Exam Narrative Exam Narrative: Constitutional: Alert and oriented x3. Appears stated age. Normal body habitus. Head: Normocephalic, no trauma. Eyes: Pupils PERRLA, Red reflex noted, EOM's intact. Eyelids symmetrical without lesions, discharge, or swelling. ENT: Bilateral TM's WNL, External ear normal to inspection, no mastoid TTP, swelling, or erythema, Nasal turbinates WNL, no nasal discharge. Normal dentition, Posterior pharynx WNL, no exudate. Chest: RRR, Normal S1, S2, distal pulses intact. Resp: Lungs clear to auscultation bilaterally, no wheezes, rales, or rhonchi. Musculoskeletal: Normal gait, 5/5 strength to all four extremities. Skin: No suspicious rashes or lesions. Capillary refill less than 2 sec. Neurologic: Cranial nerves II-XII intact. Alert and oriented x 3. DTR's intact. No focal neuro deficits noted. Hematologic/Lymphatic: No ecchymosis, no lymphadenopathy. Course Vital Signs Vital signs: Vital Signs Temperature 37 C 04/19/21 17:12 Pulse 74 04/19/21 17:12 Respiratory Rate 30 H 04/19/21 17:12 Blood Pressure 132/67 04/19/21 17:12 Pulse Oximetry 97 04/19/21 17:12 Temperature 37 C 04/19/21 17:12 Temperature Source Temporal Artery Scan 04/19/21 17:12 Pulse 74 04/19/21 17:12 Respiratory Rate 30 H 04/19/21 17:12 Blood Pressure 132/67 04/19/21 17:12 Blood Pressure Position Supine 04/19/21 17:12 Pulse Oximetry 97 04/19/21 17:12 Oxygen Delivery Method Room Air 04/19/21 17:12 Oxygen Flow Rate 0 04/19/21 17:12
[2021-04-19 17:33] LABS: Abs Immature Grans 0.02 10^3/uL (0.0-0.06); Absolute Basophil Count 0.03 10^3/uL (0.0-0.2); Absolute Eosinophil Count 0.02 10^3/uL (0.0-0.7); Absolute Monocyte Count 0.05 10^3/uL (0.1-0.8); Absolute Neutrophil Count 2.04 10^3/uL (1.2-6.7); Basophils % 0.9; Eosinophils % 0.6; HCT 26.8 % (40.0-50.0); HGB 9.2 g/dL (13.5-17.5); Immature Grans % 0.6; Lymphocytes % 31.6; MCH 27.1 pg (27.0-33.0); MCHC 34.3 % (32.0-36.0); MCV 78.8 fL (80-95); MPV 8.2 fL (8.0-11.0); Monocytes % 1.6; Neutrophils % 64.7; Nucleated RBC 0 %; Platelet Count 172 10^3/uL (130-400); RDW 13.2 % (11.8-14.1); RDW-SD 37.3 fL; WBC 3.16 10^3/uL (4.4-10.8)
[2021-04-19] MEDS: Normal Saline 1,000 ML 125 ML IV (17:33)
[2021-04-19 17:51] LABS: ALT 25 U/L (16-63); AST 29 U/L (15-37); Albumin 3.3 g/dL (3.4-5.0); Alkaline Phosphatase 103 U/L (46-116); Anion Gap 11.3 mmol/L (3-11); BUN 14 mg/dL (7-18); Bilirubin, Total 0.3 mg/dL (0.2-1.0); CO2 23.7 mmol/L (21.0-32.0); CREATININE 1.1 mg/dL (0.70-1.30); Calcium 8.2 mg/dL (8.5-10.1); Chloride 93 mmol/L (98-107); Glucose 90 mg/dL (74-106); Potassium 4.2 mmol/L (3.5-5.1); Sodium 128 mmol/L (136-145); Total Protein 7.3 g/dL (6.4-8.2)
[2021-04-19 17:55] LABS: Magnesium 0.7 mg/dL (1.8-2.4); Troponin I < 0.05 ng/mL (<0.06)
[2021-04-19 18:00] VITALS: BP 128/53; PULSE 70; PULSE 72; RESP 28; O2SAT 97
[2021-04-19] MEDS: MAGNESIUM SULFATE 2 GM/50 ML BAG IVPB (18:03)
--- NOTE | 2021-04-19 18:15 | RT.EKG_ITS ---
APPROVED REPORT Exam: Resting ECG Reason for Exam: Aphasia Patient Location: E HR:72 bpm ECG Measurements Heart Rate 72 AXIS NH 186 P 44 QRSd 84 QRS 61 QT 400 T 54 QTc 439 Conclusion Sinus rhythm...normal P axis, V-rate 60- 99 I have reviewed and interpreted ECG and agree with software generated interpretation.
[2021-04-19 18:45] VITALS: O2SAT 97
[2021-04-19] MEDS: Omnipaque 350 MG/ML 100 ML BTL IJ (18:45)
[2021-04-19] MEDS: Normal Saline - Diluent 50 ML VIAL IV (18:45)
[2021-04-19 18:53] LABS: Bilirubin Negative (Negative); Blood Negative (Negative); Clarity Clear (Clear); Glucose 500 mg/dL (Negative); Ketones Negative (Negative); Leukocyte Esterase Negative (Negative); Nitrite Negative (Negative); Specific Gravity <= 1.005 (1.005-1.025); Urobilinogen 0.2 EU/dL (Up TO 0.2); pH 5.5 (5-8)
[2021-04-19 19:00] VITALS: PULSE 71; RESP 24; O2SAT 97
--- NOTE | 2021-04-19 19:06 | DI.VRAD_ITS ---
PROCEDURE INFORMATION: Exam: XR Chest Exam date and time: 04/19/2021 6:38 PM Age: 65 years old Clinical indication: Pain; Other: Intermittent aphasia TECHNIQUE: Imaging protocol: XR of the chest. Views: 2 views. COMPARISON: CT CHEST W 12/13/2020 9:09 AM FINDINGS: Lungs: Right upper lung pleural based mass, approximately 4.9 by 3.5 centimetres. Mildly hyperinflated lungs. Bilateral interstitial pattern of chronic changes in the lungs. Vaguely seen nodular opacity at the right lung base, approximately 1.7 centimetres in diameter. Pleural spaces: Unremarkable. No pleural effusion. No pneumothorax. Heart/Mediastinum: Unremarkable. No cardiomegaly. Bones/joints: Mild multilevel degenerative changes within thoracic spine. IMPRESSION: No infiltrates. Right upper lung pleural based mass, 4.9 x 3.5 centimetres. Questionable nodular opacity at the right lung base, approximately 1.7 centimetres. Hyperinflated lungs, likely emphysema. Dictated and Authenticated by: Trent Mathew MD. Ordering:LETTY Tidwell MD
[2021-04-19 19:30] VITALS: PULSE 69; RESP 30; O2SAT 95
--- NOTE | 2021-04-19 20:02 | DI.VRAD_ITS ---
PROCEDURE INFORMATION: Exam: CT Angiography Head With Contrast, Arteriography Exam date and time: 04/19/2021 5:17 PM Age: 65 years old Clinical indication: Pain; Other: R/O CVA TECHNIQUE: Imaging protocol: Computed tomography angiography of the head with contrast. Exam focused on the arteries. 3D rendering (Not supervised by radiologist): MIP and/or 3D reconstructed images were created by the technologist. Radiation optimization: All CT scans at this facility use at least one of these dose optimization techniques: automated exposure control; mA and/or kV adjustment per patient size (includes targeted exams where dose is matched to clinical indication); or iterative reconstruction. Contrast material: OMNI 350; Contrast volume: 100 ml; Contrast route: INTRAVENOUS (IV); COMPARISON: CT HEAD WO/W 01/11/2021 1:34 PM FINDINGS: ANTERIOR CIRCULATION: Right internal carotid artery: Unremarkable. Intracranial segment is patent with no significant stenosis. No aneurysm. Right middle cerebral artery: There is significant narrowing at the origin of the right MCA, with a region of high-grade stenosis versus near complete occlusion (image 427, series 20). No aneurysm. Right anterior cerebral artery: Unremarkable. No occlusion or significant stenosis. No aneurysm. Left internal carotid artery: Unremarkable. Intracranial segment is patent with no significant stenosis. No aneurysm. Left middle cerebral artery: There is high-grade stenosis versus short segment occlusion in the mid left MCA (image 439, series 20). No aneurysm. Left anterior cerebral artery: Unremarkable. No occlusion or significant stenosis. No aneurysm. POSTERIOR CIRCULATION: Right vertebral artery: Unremarkable. No occlusion or significant stenosis. No aneurysm. Left vertebral artery: Unremarkable. No occlusion or significant stenosis. No aneurysm. Basilar artery: Unremarkable. No occlusion or significant stenosis. No aneurysm. Right posterior cerebral artery: Unremarkable. No occlusion or significant stenosis. No aneurysm. Left posterior cerebral artery: There is high-grade stenosis versus short segment occlusion in the P2 segment of the left POLISH COMPOUNDER (image 418, series 20). No aneurysm. Brain: No definite mass, mass effect, or midline shift. Cerebral ventricles: No ventriculomegaly. Bones/joints: No acute fracture. Soft tissues: Unremarkable. IMPRESSION: High-grade stenosis versus short segment occlusion in the bilateral middle cerebral arteries and in the left posterior cerebral artery as described. These findings may be secondary to chronic atherosclerotic disease versus or acute versus chronic vasculitis. Correlate with clinical findings. PROCEDURE INFORMATION: Exam: CT Head Without Contrast Exam date and time: 04/19/2021 5:17 PM Clinical indication: Pain; Other: R/O CVA TECHNIQUE: Imaging protocol: Computed tomography of the head without contrast. COMPARISON: No relevant prior studies available. FINDINGS: Brain: There is no acute intracranial hemorrhage, mass effect or midline shift. No large acute territorial infarct identified. There are patchy regions of hypodensity in the periventricular and subcortical white matter, likely on the basis of chronic microvascular ischemic disease. Cerebral ventricles: The ventricles and sulci are prominent in size, which is at least in part due to global cerebral volume loss. Bones/joints: Unremarkable. No acute fracture. Paranasal sinuses: There is mucosal thickening in the ethmoid and maxillary sinuses. Mastoid air cells: Visualized mastoid air cells are well aerated. Soft tissues: Unremarkable. IMPRESSION: No acute intracranial hemorrhage, mass effect or midline shift. PROCEDURE INFORMATION: Exam: CT Angiography Neck With Contrast Exam date and time: 04/19/2021 5:17 PM Age: 65 years old Clinical indication: Pain; Other: R/O CVA TECHNIQUE: Imaging protocol: Computed tomography angiography of the neck with contrast. 3D rendering (Not supervised by radiologist): MIP and/or 3D reconstructed images were created by the technologist. Contrast material: OMNI 350; Contrast volume: 100 ml; Contrast route: INTRAVENOUS (IV); COMPARISON: CT HEAD WO/W 01/11/2021 1:34 PM, chest CT scan dated 12/13/2020. FINDINGS: Right common carotid artery: No stenosis. No dissection or occlusion. Right internal carotid artery: Atherosclerotic plaque is noted at the bifurcation and proximal internal carotid artery without hemodynamically significant stenosis. No dissection or occlusion. Right external carotid artery: No occlusion or stenosis of the origin. Right vertebral artery: No stenosis. No dissection or occlusion. Left common carotid artery: No stenosis. No dissection or occlusion. Left internal carotid artery: There is high-grade stenosis at the proximal left ICA with approximately 70% stenosis. Left external carotid artery: No occlusion or stenosis of the origin. Left vertebral artery: No stenosis. No dissection or occlusion. Subclavian arteries: A left subclavian artery stent is noted, although limited evaluation due to streak artifact in this region. Bones/joints: No acute fracture. There has been interval development of a 2.8 cm soft tissue mass involving the medial right 4th rib (image 2, series 16), consistent with osseous involvement of disease. Soft tissues: Normal. No significant soft tissue swelling. Lungs: There is a right lung mass which is partially visualized in the lateral upper lobe, as seen on prior CT of the chest. Diffuse centrilobular emphysema noted. IMPRESSION: 1. Severe stenosis at the proximal left ICA, secondary to atherosclerotic plaque. 2. No dissection or occlusion in the neck. 3. Partially visualized right lung mass as seen on prior chest CT. 4. Interval development of right 4th rib lesion since the prior chest CT, suggestive of disease progression. REFERENCES: 1. NASCET CRITERIA. The degree of internal carotid artery stenosis is based on NASCET criteria. Normal is no stenosis. Mild is less than 50% stenosis. Moderate is 50-69% stenosis. Severe is 70% to 99% stenosis. Total occlusion is no detectable patent lumen. 2. THIS REPORT CONTAINS FINDINGS THAT MAY BE CRITICAL TO PATIENT CARE. The findings were verbally communicated via telephone conference with LITA SCHUSTER at 7:38 PM EDT on 04/19/2021. The findings were acknowledged and understood. Dictated and Authenticated by: Sandra Gooden MD. Ordering:LETTY Tidwell MD
--- NOTE | 2021-04-19 20:10 | NUR.NOTE ---
Nursing Note: please have cm follow and get appointment for pcp to be seen for intercranial stynosis a worsening right lung nodule 04/19/21
[2021-04-19 20:37] VITALS: BP 134/76; PULSE 74; RESP 16; TEMP 36.7; O2SAT 97
[2021-04-19 20:37] LABS: Troponin I < 0.05 ng/mL (<0.06)
== END 2021-04-19 20:35 | disposition left against medical advice (07) ==
PROVIDERS: Emergency Provider Registered Nurse Emergency; PCP Family Medicine
DX: G45.9 Transient cerebral ischemic attack, unspecified (principal); R91.1 Solitary pulmonary nodule; Z53.29 Procedure and treatment not carried out because of patient's decision for other reasons; E83.42 Hypomagnesemia; R47.01 Aphasia
CPT/HCPCS: 36416; 70496; 70498; 80053; 82962; 93005; 96365; 96366; 99285; 71046; 81003; 83735; 84484; 85025; 93010; 99284; J3490

== ENCOUNTER 2021-05-12 20:27 | Emergency (ER) | payer MEDICARE, MEDICAID, SELFPAY ==
--- NOTE | 2021-05-12 20:33 | ED.GENADUL_ITS ---
Discharge Plan Disposition Patient Disposition: HOME Condition: Good Discharge Details Clinical Impression: Acute UTI Primary Care Provider: Julio Hackett ED Provider: Merritt Del Rosario Home Meds and New Rx's Prescriptions: New cephalexin 500 mg capsule 500 mg PO QID 6 Days Qty: 24 RF: 0 Continued Flovent HFA 110 mcg/actuation HFA aerosol inhaler 1 puff Inhalation BID Qty: 1 RF: 8 Jardiance 25 mg tablet 25 mg PO QAM Qty: 90 RF: 3 (DME) OneTouch Verio test strips Strip See Dose Instructions .Route .MEDSUPPLY Qty: 200 RF: 3 albuterol sulfate [ProAir HFA] 90 mcg/actuation HFA aerosol inhaler 2 puff Inhalation Q4H PRN Qty: 1 RF: 8 ferrous sulfate 325 mg (65 mg iron) tablet 325 mg PO BID Qty: 180 RF: 3 nitroglycerin 0.4 mg tablet, sublingual 0.4 mg Sublingual q 5 minutes PRN (Reason: chest pain) Qty: 25 RF: 0 magnesium oxide 400 mg magnesium capsule 400 mg PO DAILY Qty: 90 RF: 3 amlodipine 5 mg tablet 5 mg PO DAILY Qty: 90 RF: 3 metformin 1,000 mg tablet 1,000 mg PO BID Qty: 180 RF: 3 omeprazole 20 mg capsule,delayed release(DR/EC) 20 mg PO DAILY Qty: 90 RF: 3 rosuvastatin [Crestor] 5 mg tablet 5 mg PO DAILY Qty: 90 RF: 3 aspirin [Aspir-81] 81 MG tablet,delayed release (DR/EC) 81 mg PO DAILY RF: 0 (DME) blood-glucose meter [[employer] UltraMini] 1 EACH kit 1 ea Miscellaneous DAILY Qty: 1 RF: 0 ipratropium-albuterol 0.5 mg-3 mg(2.5 mg base)/3 mL solution for nebulization 3 ml IH .q6 hrs Qty: 180 RF: 2 (DME) lancets [[employer]Touch Delica Lancets] 33 gauge misc 1 ea Miscellaneous DAILY Qty: 100 RF: 3 icosapent ethyl [Vascepa] 1 gram capsule 2 gm PO BID Qty: 360 RF: 3 metoclopramide HCl [Reglan] 10 mg tablet 10 mg PO .ac and hs Qty: 120 RF: 11 fenofibrate nanocrystallized [Tricor] 145 mg tablet 145 mg PO DAILY Qty: 90 RF: 3 Anoro Ellipta 62.5-25 mcg/actuation blister with device 1 inh IH DAILY Qty: 60 RF: 5 isosorbide mononitrate 30 mg tablet extended release 24 hr 30 mg PO DAILY Qty: 90 RF: 3 paroxetine HCl 30 mg tablet 30 mg PO DAILY Qty: 90 RF: 3 clopidogrel 75 mg tablet 75 mg PO DAILY Qty: 90 RF: 3 metoprolol tartrate 25 mg tablet 25 mg PO BID Qty: 180 RF: 3 paroxetine HCl 40 mg tablet 40 mg PO DAILY Qty: 90 RF: 3 albuterol sulfate 2.5 mg /3 mL (0.083 %) solution for nebulization 2.5 mg IH QID PRN (Reason: shortness of breath or wheezing) Qty: 75 RF: 0 Discharge Instructions Instructions: Urinary Tract Infection in Men (ED) Additional Instructions: At this time your urinalysis is reassuring and there is no evidence of severe infection however I am concerned that there may be a mild infection that we just cannot see yet. We have sent your urine for culture to see if any organisms grow in it. In the meantime please take the antibiotic as directed. We have given you a bottle of Keflex for home use, and then we have sent a prescription to your pharmacy on file. If you notice any worsening of your symptoms, or any new symptoms such as vomiting, diarrhea, fever, chills, shortness of breath, chest pain, numbness, weakness, or fainting , please return immediately to the emergency department for reevaluation. Please follow up with your primary care provider as soon as possible for reassessment and reevaluation. As always, it was a pleasure participating in your medical care today. Referrals: Julio Hackett. [Primary Care Provider] - Medical Decision Making This is a very pleasant 65-year-old male with a past medical history of COPD, GERD, peripheral vascular disease, hypertension, lung cancer, recent TIA 1 week ago, currently on chemotherapy medication of ETCTN 67363 is an experimental study in addition to combination therapy with carboplatin, gemcitabine, pembrolizumab, who presents today for 3 days of dysuria. Patient states that while he was at [facility] he had a Deluca catheter placed. I was 1 week ago. For the last 3 days he has had mild burning when he urinates, mild frequency, mild flank tenderness. He denies any nausea vomiting, fever, chills, chest pain or shortness of breath. He denies any significant mid abdominal pain. He never has had a urinary tract infection before. No penile or scrotal tenderness. No other complaints at this time. Physical exam is notably unremarkable. No penile tenderness, scrotal tenderness, flank or CVA or abdominal tenderness. Vital signs are very reassuring, no tachycardia or hypotension. Suspect mild urinary tract infection. Specially with his recent Deluca catheter placement. Will test UA, monitor closely and reassess. No indication for CT imaging at this time. No indication for IV labs or IV antibiotics currently. 8:56 PM Urinalysis is returned negative, however I am still concerned with the patient symptoms for potential infectious etiology. Carboplatin and gemcitabine do not seem to have any increased rate of cystitis. However pembrolizumab does have an increased rate of urinary tract infection. I am unable to look up, and her potential side effects from the experimental drug. With the patient's Deluca catheter and then subsequent symptoms 3 or 4 days later, in conjunction with his persistent dysuria and symptoms certainly clinically concerning for UTI added to the fact that he is on multiple chemotherapeutic agents, I do feel that treatment is still reasonable given the risk versus benefits. We will place a urine culture order as well. We will start the patient on Keflex, give him a dose here a bottle to go home with and a prescription for home use. I have extensively reviewed the treatment plan and discharge instructions with the patient. I have addressed all patient concerns at this time. The patient was made aware of what symptoms to monitor for that would warrant a return to the emergency department. Discussed the plan with the patient, they demonstrate verbal understanding and agreement with our assessment and plan at this time. The documentation in this chart was dictated using [employer] dictation software. Please excuse any dictation errors. HPI General Date/Time Provider Initiated Documentation: 05/12/21 20:27 . HPI Narrative: This is a very pleasant 65-year-old male with a past medical history of COPD, GERD, peripheral vascular disease, hypertension, lung cancer, recent TIA 1 week ago, currently on chemotherapy medication of ETCTN [id number] is an experimental study in addition to combination therapy with carboplatin, gemcitabine, pembrolizumab, who presents today for 3 days of dysuria. Patient states that while he was at [facility] he had a Deluca catheter placed. I was 1 week ago. For the last 3 days he has had mild burning when he urinates, mild frequency, mild flank tenderness. He denies any nausea vomiting, fever, chills, chest pain or shortness of breath. He denies any significant mid abdominal pain. He never has had a urinary tract infection before. No penile or scrotal tenderness. No other complaints at this time. Related Data Home Medications Medication Instructions Recorded Confirmed aspirin [Aspir-81] 81 mg PO DAILY tab-cap NS 01/09/15 05/12/21 blood-glucose meter [OneTouch #1 kit 07/31/18 04/19/21 UltraMini] albuterol sulfate 2.5 mg IH QID PRN #75 ml 01/25/19 05/12/21 ipratropium 0.5 mg-albuterol 3 mg 3 ml IH .q6 hrs #180 ml 01/25/19 05/12/21 (2.5 mg base)/3 mL nebulization soln lancets 33 gauge #100 ea 01/27/20 04/19/21 amlodipine 5 mg tablet 5 mg PO DAILY #90 tab-cap 06/06/20 05/12/21 magnesium oxide 400 mg PO DAILY #90 cap 06/06/20 05/12/21 metformin 1,000 mg tablet 1,000 mg PO BID #180 tab 06/06/20 05/12/21 omeprazole 20 mg capsule,delayed 20 mg PO DAILY #90 tab-cap 06/06/20 05/12/21 release rosuvastatin 5 mg tablet 5 mg PO DAILY #90 tab-cap 06/06/20 05/12/21 icosapent ethyl 1 gram capsule 2 gm PO BID #360 cap 06/19/20 05/12/21 metoclopramide HCl 10 mg tablet 10 mg PO .ac and hs #120 tab 07/25/20 05/12/21 fenofibrate nanocrystallized 145 145 mg PO DAILY #90 tab 09/06/20 05/12/21 mg tablet umeclidinium 62.5 mcg-vilanterol 1 inh IH DAILY #60 each 11/06/20 05/12/21 25 mcg/actuation powdr for inhalation isosorbide mononitrate 30 mg 30 mg PO DAILY #90 tab-cap 11/10/20 05/12/21 tablet,extended release 24 hr paroxetine HCl 30 mg tablet 30 mg PO DAILY #90 tab-cap 11/27/20 05/12/21 clopidogrel 75 mg tablet 75 mg PO DAILY #90 tab-cap 01/19/21 05/12/21 metoprolol tartrate 25 mg tablet 25 mg PO BID #180 tab-cap 02/08/21 05/12/21 paroxetine HCl 40 mg tablet 40 mg PO DAILY #90 tab 02/21/21 05/12/21 albuterol sulfate 90 mcg/actuation 2 puff INHALATION Q4H PRN #1 03/06/21 05/12/21 aerosol inhaler inhaler blood sugar diagnostic #200 each 03/06/21 04/19/21 empagliflozin 25 mg tablet 25 mg PO QAM #90 tab 03/06/21 05/12/21 ferrous sulfate 325 mg (65 mg 325 mg PO BID #180 tab 03/06/21 05/12/21 iron) tablet fluticasone propionate 110 1 puff INHALATION BID #1 inhaler 03/06/21 05/12/21 mcg/actuation HFA aerosol inhaler nitroglycerin 0.4 mg sublingual 0.4 mg SUBLINGUAL q 5 minutes PRN 03/06/21 05/12/21 tablet #25 tab-cap cephalexin 500 mg PO QID 6 Days #24 cap 05/12/21 Previous Rx's Medication Instructions Recorded blood-glucose meter [OneTouch #1 kit 07/31/18 UltraMini] albuterol sulfate 2.5 mg IH QID PRN #75 ml 01/25/19 ipratropium 0.5 mg-albuterol 3 mg 3 ml IH .q6 hrs #180 ml 01/25/19 (2.5 mg base)/3 mL nebulization soln lancets 33 gauge #100 ea 01/27/20 amlodipine 5 mg tablet 5 mg PO DAILY #90 tab-cap 06/06/20 magnesium oxide 400 mg PO DAILY #90 cap 06/06/20 metformin 1,000 mg tablet 1,000 mg PO BID #180 tab 06/06/20 omeprazole 20 mg capsule,delayed 20 mg PO DAILY #90 tab-cap 06/06/20 release rosuvastatin 5 mg tablet 5 mg PO DAILY #90 tab-cap 06/06/20 icosapent ethyl 1 gram capsule 2 gm PO BID #360 cap 06/19/20 metoclopramide HCl 10 mg tablet 10 mg PO .ac and hs #120 tab 07/25/20 fenofibrate nanocrystallized 145 145 mg PO DAILY #90 tab 09/06/20 mg tablet umeclidinium 62.5 mcg-vilanterol 1 inh IH DAILY #60 each 11/06/20 25 mcg/actuation powdr for inhalation isosorbide mononitrate 30 mg 30 mg PO DAILY #90 tab-cap 11/10/20 tablet,extended release 24 hr paroxetine HCl 30 mg tablet 30 mg PO DAILY #90 tab-cap 11/27/20 clopidogrel 75 mg tablet 75 mg PO DAILY #90 tab-cap 01/19/21 metoprolol tartrate 25 mg tablet 25 mg PO BID #180 tab-cap 02/08/21 paroxetine HCl 40 mg tablet 40 mg PO DAILY #90 tab 02/21/21 albuterol sulfate 90 mcg/actuation 2 puff INHALATION Q4H PRN #1 03/06/21 aerosol inhaler inhaler blood sugar diagnostic #200 each 03/06/21 empagliflozin 25 mg tablet 25 mg PO QAM #90 tab 03/06/21 ferrous sulfate 325 mg (65 mg 325 mg PO BID #180 tab 03/06/21 iron) tablet fluticasone propionate 110 1 puff INHALATION BID #1 inhaler 03/06/21 mcg/actuation HFA aerosol inhaler nitroglycerin 0.4 mg sublingual 0.4 mg SUBLINGUAL q 5 minutes PRN 03/06/21 tablet #25 tab-cap cephalexin 500 mg PO QID 6 Days #24 cap 05/12/21 Allergies Allergy/AdvReac Type Severity Reaction Status Date / Time pravastatin AdvReac memory loss Verified 05/12/21 20:40 General JUANITA: 2 Review of Systems All systems reviewed & are unremarkable except as noted in HPI and below PFSH Medical History (Updated 05/12/21 @ 20:49 by Merritt Del Rosario DO) COPD (chronic obstructive pulmonary disease) Coronary artery disease Cranial nerve IV palsy Diabetes GERD (gastroesophageal reflux disease) GERD (gastroesophageal reflux disease) HTN (hypertension) Hyperlipemia Hyperlipidemia Hypertension Lung cancer Peripheral vascular disease Surgical History AORTIC graft placement (03/21/17) Stent placement 02/05/17- [facility] [place]-LEFT SUBCLAVIAN ARTERY STENT Family History Mother Stomach cancer Father Heart disease Stroke Brother Meniere's disease Social History Smoking/Tobacco Use Status: Current every day Tobacco Type: cigarettes Tobacco: How many years used: 45 Quit status: considering quitting Smoking risk assessment performed?: Yes Alcohol Intake: current Alcohol Intake frequency: 0-2 drinks per day Alcohol type: beer Drug use: Socially Substance use type: does not use Caregiver/Support person: No Household members: significant other Housing: house Communication Needs: Corrective Lenses Do you need help understanding health information?: Never current occupation: [employer] Pets and animals: Yes Pets and animals: dog(s) Sexually active: No Do you think of yourself as: straight/heterosexual Current gender identity: male What is your relationship status?: How often do you talk on the phone with friends or family?: three or more times per week How often do you get together with friends or relatives?: decline to answer How often do you attend evangelical or sabianist services?: decline to answer Panel score (0-1 are the most socially isolated patients): 2 NHANES result reviewed/action taken: No What type of physical activity do you participate in: other Details: work Frequency: 3-4 times per week Special nirmala needs: No Seatbelt use: never Helmet use: No Drive intox 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 3.ENT: Atraumatic external nose and ears. Moist MM. Neck: Symmetric, trachea midline, No thyromegaly. 4.CVS: +S1/S2, No murmurs or gallops. Peripheral pulses 2+ and equal in all extremities. Brisk capillary refill in all extremities. 5.RESP: Unlabored respiratory effort. Clear to auscultation bilaterally. No wheezes rales or rhonchi 6.GI: Soft, Nontender/Nondistended, No hepatosplenomegaly. No guarding or rebound. No suprapubic tenderness. No reproducible CVA tenderness. Genital exam was performed with female nurse is at bedside, no evidence of scrotal or testicular tenderness. The patient only has 1 testicle on the right. Penile exam is unremarkable, nontender, no discharge from the urethral meatus. Patient appears uncircumcised. 7.MSK: Normocephalic/Atraumatic, Extremities w/o deformity or ttp No cyanosis or clubbing, Normal movement of all extremities 8.Skin: Warm, Dry. No rashes or lesions. 9.Neuro: pharmaceutical representative II-XII grossly intact. Sensation grossly intact, no focal neurologic deficits. 10.Psych: (AAO) x3. Appropriate mood and affect
[2021-05-12 20:36] VITALS: BP 130/65; PULSE 88; RESP 18; TEMP 36.5; O2SAT 97
[2021-05-12 20:44] LABS: Bilirubin Negative (Negative); Blood Negative (Negative); Clarity Clear (Clear); Glucose 500 mg/dL (Negative); Ketones Negative (Negative); Leukocyte Esterase Negative (Negative); Nitrite Negative (Negative); Specific Gravity 1.015 (1.005-1.025); pH 6.5 (5-8)
[2021-05-12] MEDS: Cephalexin 500 MG CAP, 4 CAPS/BTL PO (20:59)
== END 2021-05-12 21:10 | disposition home or self-care (01) ==
PROVIDERS: Emergency Provider Student in an Organized Health Care Education/Training Program; PCP Family Medicine
DX: N39.0 Urinary tract infection, site not specified (principal); Y84.6 Urinary catheterization as the cause of abnormal reaction of the patient, or of later complication, without mention of misadventure at the time of the procedure
CPT/HCPCS: 99283; 81003; 87086

== ENCOUNTER 2021-05-23 12:12 | Emergency (ER) | payer MEDICARE, MEDICAID, SELFPAY ==
[2021-05-23] VITALS (70 sets, daily range): BP systolic 93–154; BP diastolic 22–125; PULSE 63–242; RESP 16–40; TEMP 36.8; O2SAT 91–100
--- NOTE | 2021-05-23 12:00 | RT.EKG_ITS ---
APPROVED REPORT Exam: Resting ECG Reason for Exam: SOB, Weakness Patient Location: E HR:72 bpm ECG Measurements Heart Rate 72 AXIS ND [id number] P [id number] QRSd 88 QRS 70 QT 415 T 61 QTc 454 Conclusion Atrial flutter with predominant 4:1 AV block...A-rate 272, multiple Ps. Artifact. No STEMI. I have reviewed and interpreted ECG and agree with software generated interpretation.
--- NOTE | 2021-05-23 12:16 | DI.CT_ITS ---
Exam(s) CT CHEST PE ABD PELVIS W EXAM: CT CHEST PE ABD PELVIS W CLINICAL HISTORY: Hypoxia, hx COPD, R/O PE. TECHNIQUE: Imaging Protocol: Axial CT angiography was performed with multi-slice acquisition and m ulti-planar and/or 3D reconstructions. CONTRAST MATERIAL: Intravenous: Omnipaque 350 Contrast volume:100 ml Oral: None CT CT CHEST W from 12/13/[address] CHEST W from 12/13/2020 CR,XR XR CHEST 2V PA LATERAL from 04/19/2021 CR,XR XR CHEST 2V PA LATERAL from 04/19/[address] BRAIN NECK CTA from 04/19/2021 FINDINGS: CHEST: LUNGS: Compared to prior CT scan performed 12/13/2020 the previously described right upper lobe later ally located pleural base lesion is now cavitated and measures approximately 3.9 x 2.7 centimeters, n ot associated with overlying rib destruction. In addition, the previously described nodule in the an terior aspect of the right lower lobe is slightly increased in size, presently measuring 1.4 cm. No obvious focal findings in the opposite-left lung. There are no pleural effusions on either side. There is a stent noted in the left subclavian artery proximal to the vertebral artery takeoff point. PULMONARY ARTERIES: There are no intra-arterial filling defects to suggest the presence of acute pulm onary emboli. MEDIASTINUM: There is no hilar nor mediastinal adenopathy. Visualized thyroid unremarkable. CARDIAC: Heart size is normal. There is no pericardial effusion. There is no significant shift of t he interventricular septum the thoracic aorta is atherosclerotic but not grossly dilated. OSSEOUS: There is a new destructive paraspinal right 4th rib lesion which measures 2.6 by 2.2 cm.. ABDOMEN: There is no ascites. LIVER: There are no focal hepatic lesions nor dilatation of intrahepatic ducts. GALLBLADDER/BILIARY: Difficult to assess because of motion artifact. CBD is not dilated. PANCREAS: Calcifications noted in the pancreatic head. No obvious mass. No dilatation of the pancre atic duct. SPLEEN: Spleen is not enlarged. There are no intrasplenic lesions. Splenic and portal veins are duff nt. ADRENALS: There is a right adrenal mass which measures 1.9 by 1.1 cm. Exhibits minimal if any signif icant change when compared to 12/13/2020. Thickening of the opposite-left adrenal gland is unchanged . KIDNEYS:No cysts evident. No calculi nor hydronephrosis. No solid renal masses. ABDOMINAL AORTA: Atherosclerotic. Not enlarged. Significant stenosis in the proximal celiac artery noted. LYMPH NODES: There is no retroperitoneal or para-aortic adenopathy. ABDOMINAL WALL/GI: There is right inguinal hernia which contains part of a small-bowel loop. This do es not appear edematous and there is no bowel obstruction. Scratch PELVIS: LYMPH NODES: There is no intrapelvic nor inguinal adenopathy. GI: No evidence of appendicitis.No evidence of sigmoid diverticulitis. URINARY BLADDER: No calculi nor masses evident REPRODUCTIVE: Prostate size upper normal. OSSEOUS: No significant osseous lesions. IMPRESSION: 1. There is a new destructive expansile mass in the posterior medial aspect of the right 4th rib. Th is measures approximately 0.6 x 2.2 cm. 2. Increase in size of right lower lobe spiculated nodule, presently measuring 1.4 cm. 3. The 4 centimeter pleural base mass in the lateral aspect of the right upper lobe is stable in size but is presently cavitated. There is no overlying rib destruction at this level. 4. No pleural effusions. No new findings in the opposite-left lung. 5. Right adrenal mass appears relatively stable. Nevertheless cannot exclude metastatic disease. Right inguinal hernia containing short segment of bowel which is not edematous and there is no bowel obstruction. No free air. No free fluid. RADIATION DOSE DELIVERED: 1,249.98mGy.cm Total DLP DATA REPOSITORY: All CT scans at this facility are submitted to the National Radiology Data Registry (NRDR) Dose Index Registry (DIR) with the [employer] (A[employer]). RADIATION OPTIMIZATION: All CT scans at this facility use at least one of these dose optimization te chniques: automated exposure control; mA and/or kV adjustment per patient size (includes targeted exa ms where dose is matched to clinical indication); or iterative reconstruction.
--- NOTE | 2021-05-23 12:20 | ED.GENADUL_ITS ---
Discharge Plan Disposition Patient Disposition: HOME Condition: Stable Discharge Details Clinical Impression: Hypoxia, Pancytopenia Primary Care Provider: Julio Hackett ED Provider: Sara Hinojosa Home Meds and New Rx's Prescriptions: New amoxicillin-pot clavulanate [Augmentin] 875-125 mg tablet 1 tab PO BID Qty: 20 RF: 0 Continued Flovent HFA 110 mcg/actuation HFA aerosol inhaler 1 puff Inhalation BID Qty: 1 RF: 8 Jardiance 25 mg tablet 25 mg PO QAM Qty: 90 RF: 3 (DME) [employer] Verio test strips Strip See Dose Instructions .Route .MEDSUPPLY Qty: 200 RF: 3 albuterol sulfate [ProAir HFA] 90 mcg/actuation HFA aerosol inhaler 2 puff Inhalation Q4H PRN Qty: 1 RF: 8 ferrous sulfate 325 mg (65 mg iron) tablet 325 mg PO BID Qty: 180 RF: 3 nitroglycerin 0.4 mg tablet, sublingual 0.4 mg Sublingual q 5 minutes PRN (Reason: chest pain) Qty: 25 RF: 0 magnesium oxide 400 mg magnesium capsule 400 mg PO DAILY Qty: 90 RF: 3 amlodipine 5 mg tablet 5 mg PO DAILY Qty: 90 RF: 3 metformin 1,000 mg tablet 1,000 mg PO BID Qty: 180 RF: 3 omeprazole 20 mg capsule,delayed release(DR/EC) 20 mg PO DAILY Qty: 90 RF: 3 rosuvastatin [Crestor] 5 mg tablet 5 mg PO DAILY Qty: 90 RF: 3 (DME) blood-glucose meter [[employer] UltraMini] 1 EACH kit 1 ea Miscellaneous DAILY Qty: 1 RF: 0 ipratropium-albuterol 0.5 mg-3 mg(2.5 mg base)/3 mL solution for nebulization 3 ml IH .q6 hrs Qty: 180 RF: 2 (DME) lancets [iKaazTouch Delica Lancets] 33 gauge misc 1 ea Miscellaneous DAILY Qty: 100 RF: 3 icosapent ethyl [Vascepa] 1 gram capsule 2 gm PO BID Qty: 360 RF: 3 metoclopramide HCl [Reglan] 10 mg tablet 10 mg PO .ac and hs Qty: 120 RF: 11 fenofibrate nanocrystallized [Tricor] 145 mg tablet 145 mg PO DAILY Qty: 90 RF: 3 Anoro Ellipta 62.5-25 mcg/actuation blister with device 1 inh IH DAILY Qty: 60 RF: 5 isosorbide mononitrate 30 mg tablet extended release 24 hr 30 mg PO DAILY Qty: 90 RF: 3 paroxetine HCl 30 mg tablet 30 mg PO DAILY Qty: 90 RF: 3 metoprolol tartrate 25 mg tablet 25 mg PO BID Qty: 180 RF: 3 paroxetine HCl 40 mg tablet 40 mg PO DAILY Qty: 90 RF: 3 lorazepam 0.5 mg tablet 0.5 mg PO QHS PRN (Reason: anxiety) Qty: 10 RF: 0 albuterol sulfate 2.5 mg /3 mL (0.083 %) solution for nebulization 2.5 mg IH QID PRN (Reason: shortness of breath or wheezing) Qty: 75 RF: 0 Discontinued aspirin [Aspir-81] 81 MG tablet,delayed release (DR/EC) 81 mg PO DAILY RF: 0 clopidogrel 75 mg tablet 75 mg PO DAILY Qty: 90 RF: 3 Discharge Instructions Instructions: Anemia (ED), Hypoxia (ED), Pancytopenia (DC) Medical Decision Making <Diann Shipman - Last Filed: 05/24/21 08:32> 65-year-old male to ER via EMS for rule out CVA, report from home health, 78% on 3.5 L nasal cannula which is his normal oxygen status, upon arrival he is 92% on 6 L nasal cannula which was started by EMS. Also report increased weakness, facial droop, slurred speech which began this morning. Approximately an hour and half prior to arrival. Also reported as trouble walking. Upon initial exam patient is moving upper extremities without difficulties is following commands is awake, no facial droop noted. patient is a cancer patient did have a history of kidney cancer and is receiving multiple chemo medications last dose approxima tely 1 week ago. Oncology department at [facility] is requesting a CT head, CT chest to rule out PE and possibly MRI. At this time work-up ordered including CBC, CMP, CT head, CT chest rule out PE versus pneumonia, PT, PTT Stroke protocol called by ER staff patient seen initially by myself quick fast exam and directed directly to CT with EMS upon arrival. EXAM: CT HEAD - STROKE PROTOCOL CLINICAL HISTORY: Trouble walking, Slurred speech. TECHNIQUE: Imaging Protocol: Axial computed tomography images with coronal and sagittal reformatted images were created and reviewed COMPARISON: CT CT BRAIN NECK CTA from 04/19/2021 FINDINGS: There are no skull fractures nor fluid in the visualized paranasal sinuses. There is no evidence of intracranial hemorrhage, mass effect, or shift of midline structures. There are no extra-axial fluid collections. The ventricles are not enlarged or shifted and there is no blood within the ventricular system nor within the basal cisterns. Slight asymmetry in the size of the sylvian fissures (left larger than right) is again noted. This may be related to the occlusive arterial disease which is been previously documented. IMPRESSION: No acute intracranial findings on this noninfused CT scan of the brain. Known arterial occlusive disease. See prior report. Call made to [facility], for bed status for possible transfer. 1348: Spoke with [facility] transfer center regarding patient given patient case and details for consult with hematology oncology. Positive guaiac stool black stools. Hemoglobin is 5 hematocrit 15, platelets 5 1406: Spoke with Dr. Lewis with [facility] [place] who reccommeds Transfusion with 2 units PRBS, 1 unit Platelets, CT abd/Pelvis for GI bleed eval, add on of Fibrinogen, and Ddimer, also recommends Abx coverage due to Leukopenia. Zosyn ordered. Spoke again with Dr. Lewis with [facility] Oncology. Call made to [facility] hospitalist Dr. Ashby discussed patient case in detail she does not accept patient for admission at this time due to in availability of platelets and oncology status of patient. 1430: Anesthesia called to place PICC line for access, and blood draw, 1531: Call Made to [facility], for hospitalist Dr. Riggins, Dr. Ptael with GI, will get head sawyer on phone, Dr Esparza. Discussed patient case with them, they do not accept patient for transfer at this time. 1645: Patient has returned to the ER from CT, Care is to be handed off to Sara Hinojosa BLACKTOP PAVER OPERATOR pending Disposition. Medical Records Medical records reviewed: Yes I reviewed the patient's medical records. Medical records narrative: Patient was recently diagnosed with UTI on May 12 and prescribed cephalexin <Sara Hinojosa BLACKTOP PAVER OPERATOR - Last Filed: 05/23/21 21:37> 1645- care of patient received from Graciela Snow APRN. patient is a 65 year old with history of stage 4 lung cancer undergoing clinical trial at [facility] oncology combination of carboplatin/gemcitabine/penbrolizumab who was referred to ED here at [facility] for reports of right sided drooping and weakness found to be hypoxic with room air sat of 70's. work up in the ED shows pancytopenia with plt 5, hemoglobin 5 and heme positive stools. platelets ordered as not available on site and PRBC infusion initiated. SBP 90-100's. given protonix 80 mg IVP and continue with bolus dosing head CT w/o contrast with no bleed or acute findings [facility] oncology contacted and recommends adding zosyn. blood cultures pending, non con CT chest /abd/pelvis: IMPRESSION: 1. New 3 cm destructive mass right posteromedial 4th rib 2. Increase in size of now 1.4 cm right lower lobe spiculated nodule 3. Stable size of 4 cm subpleural mass right upper lobe laterally which is now cavitated 4. Emphysema is now oxygenating well on 6 liter nasal canula, will wean as able. differentials include necrotizing infection, mets cancer, pulmonary embolism with infarction. zosyn 3.375 mg given. case is discussed with Dr De La Paz from hospital medicine who accepts patient in transfer for further evaluation and management. Medical Records Medical records reviewed: Yes I reviewed the patient's medical records. HPI <Diann Shipman - Last Filed: 05/24/21 08:32> General Mode of arrival: EMS . Date/Time Provider Initiated Documentation: 05/23/21 12:20 . Limitations to Documentation: altered mental status . 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 HPI Narrative: 65-year-old male to ER via EMS for rule out CVA, report from home health, 78% on 3.5 L nasal cannula which is his normal oxygen status, upon arrival he is 92% on 6 L nasal cannula which was started by EMS. Also report increased weakness, facial droop, slurred speech which began this morning. Approximately an hour and half prior to arrival. Also reported as trouble walking. Upon initial exam patient is moving upper extremities without difficulties is following commands is awake, no facial droop noted. patient is a cancer patient did have a history of kidney cancer and is receiving multiple chemo medications last dose approximately 1 week ago. Oncology department at [facility] is requesting a CT head, CT chest to rule out PE and possibly MRI. Related Data Home Medications Medication Instructions Recorded Confirmed blood-glucose meter [OneTouch #1 kit 07/31/18 04/19/21 UltraMini] albuterol sulfate 2.5 mg IH QID PRN #75 ml 01/25/19 05/23/21 ipratropium 0.5 mg-albuterol 3 mg 3 ml IH .q6 hrs #180 ml 01/25/19 05/23/21 (2.5 mg base)/3 mL nebulization soln lancets 33 gauge #100 ea 01/27/20 04/19/21 amlodipine 5 mg tablet 5 mg PO DAILY #90 tab-cap 06/06/20 05/23/21 magnesium oxide 400 mg PO DAILY #90 cap 06/06/20 05/23/21 metformin 1,000 mg tablet 1,000 mg PO BID #180 tab 06/06/20 05/23/21 omeprazole 20 mg capsule,delayed 20 mg PO DAILY #90 tab-cap 06/06/20 05/23/21 release rosuvastatin 5 mg tablet 5 mg PO DAILY #90 tab-cap 06/06/20 05/23/21 icosapent ethyl 1 gram capsule 2 gm PO BID #360 cap 06/19/20 05/23/21 metoclopramide HCl 10 mg tablet 10 mg PO .ac and hs #120 tab 07/25/20 05/23/21 fenofibrate nanocrystallized 145 145 mg PO DAILY #90 tab 09/06/20 05/23/21 mg tablet umeclidinium 62.5 mcg-vilanterol 1 inh IH DAILY #60 each 11/06/20 05/23/21 25 mcg/actuation powdr for inhalation isosorbide mononitrate 30 mg 30 mg PO DAILY #90 tab-cap 11/10/20 05/23/21 tablet,extended release 24 hr paroxetine HCl 30 mg tablet 30 mg PO DAILY #90 tab-cap 11/27/20 05/23/21 metoprolol tartrate 25 mg tablet 25 mg PO BID #180 tab-cap 02/08/21 05/23/21 paroxetine HCl 40 mg tablet 40 mg PO DAILY #90 tab 02/21/21 05/23/21 albuterol sulfate 90 mcg/actuation 2 puff INHALATION Q4H PRN #1 03/06/21 05/23/21 aerosol inhaler inhaler blood sugar diagnostic #200 each 03/06/21 04/19/21 empagliflozin 25 mg tablet 25 mg PO QAM #90 tab 03/06/21 05/23/21 ferrous sulfate 325 mg (65 mg 325 mg PO BID #180 tab 03/06/21 05/23/21 iron) tablet fluticasone propionate 110 1 puff INHALATION BID #1 inhaler 03/06/21 05/23/21 mcg/actuation HFA aerosol inhaler nitroglycerin 0.4 mg sublingual 0.4 mg SUBLINGUAL q 5 minutes PRN 03/06/21 05/23/21 tablet #25 tab-cap lorazepam 0.5 mg tablet 0.5 mg PO QHS PRN #10 tab 05/22/21 05/23/21 amoxicillin-pot clavulanate 1 tab PO BID #20 tab 05/23/21 [Augmentin] Previous Rx's Medication Instructions Recorded blood-glucose meter [OneTouch #1 kit 07/31/18 UltraMini] albuterol sulfate 2.5 mg IH QID PRN #75 ml 01/25/19 ipratropium 0.5 mg-albuterol 3 mg 3 ml IH .q6 hrs #180 ml 01/25/19 (2.5 mg base)/3 mL nebulization soln lancets 33 gauge #100 ea 01/27/20 amlodipine 5 mg tablet 5 mg PO DAILY #90 tab-cap 06/06/20 magnesium oxide 400 mg PO DAILY #90 cap 06/06/20 metformin 1,000 mg tablet 1,000 mg PO BID #180 tab 06/06/20 omeprazole 20 mg capsule,delayed 20 mg PO DAILY #90 tab-cap 06/06/20 release rosuvastatin 5 mg tablet 5 mg PO DAILY #90 tab-cap 06/06/20 icosapent ethyl 1 gram capsule 2 gm PO BID #360 cap 06/19/20 metoclopramide HCl 10 mg tablet 10 mg PO .ac and hs #120 tab 07/25/20 fenofibrate nanocrystallized 145 145 mg PO DAILY #90 tab 09/06/20 mg tablet umeclidinium 62.5 mcg-vilanterol 1 inh IH DAILY #60 each 11/06/20 25 mcg/actuation powdr for inhalation isosorbide mononitrate 30 mg 30 mg PO DAILY #90 tab-cap 11/10/20 tablet,extended release 24 hr paroxetine HCl 30 mg tablet 30 mg PO DAILY #90 tab-cap 11/27/20 metoprolol tartrate 25 mg tablet 25 mg PO BID #180 tab-cap 02/08/21 paroxetine HCl 40 mg tablet 40 mg PO DAILY #90 tab 02/21/21 albuterol sulfate 90 mcg/actuation 2 puff INHALATION Q4H PRN #1 03/06/21 aerosol inhaler inhaler blood sugar diagnostic #200 each 03/06/21 empagliflozin 25 mg tablet 25 mg PO QAM #90 tab 03/06/21 ferrous sulfate 325 mg (65 mg 325 mg PO BID #180 tab 03/06/21 iron) tablet fluticasone propionate 110 1 puff INHALATION BID #1 inhaler 03/06/21 mcg/actuation HFA aerosol inhaler nitroglycerin 0.4 mg sublingual 0.4 mg SUBLINGUAL q 5 minutes PRN 03/06/21 tablet #25 tab-cap lorazepam 0.5 mg tablet 0.5 mg PO QHS PRN #10 tab 05/22/21 amoxicillin-pot clavulanate 1 tab PO BID #20 tab 05/23/21 [Augmentin] Allergies Allergy/AdvReac Type Severity Reaction Status Date / Time pravastatin AdvReac memory loss Verified 05/23/21 12:39 General JUANITA: 3 Review of Systems <Diann Shipman - Last Filed: 05/24/21 08:32> Narrative: Most review of systems obtained from [facility] RN and EMS Constitutional Constitutional: Reports as per HPI, Reports lethargy and Reports weakness Eyes Eyes: Reports as per HPI and Reports system reviewed and no additional complaints, except as documented ENT Ears, Nose, Mouth, and Throat: Reports dizziness Comments: Report of slurred speech none on initial exam Cardiovascular Cardiovascular: Denies chest pain, Denies chest pain at rest and Reports dyspnea Respiratory Respiratory: Reports dyspnea Gastrointestinal Gastrointestinal: Reports system reviewed and no additional complaints, except as documented, Denies abdominal pain, Reports melena and Reports change in stool character Genitourinary Genitourinary: Reports system reviewed and no additional complaints, except as documented Musculoskeletal Musculoskeletal: Reports abnormal gait Neurologic Neurologic: Reports as per HPI, Reports abnormal speech, Reports abnormal gait, Reports confusion, Reports dizziness, Reports localized weakness and Reports weakness Psychiatric Psychiatric: Reports confusion [facility] <Diann Shipman - Last Filed: 05/24/21 08:32> Medical History (Updated 05/23/21 @ 21:37 by Sara Hinojosa NP) COPD (chronic obstructive pulmonary disease) Coronary artery disease Cranial nerve IV palsy Diabetes GERD (gastroesophageal reflux disease) GERD (gastroesophageal reflux disease) HTN (hypertension) Hyperlipemia Hyperlipidemia Hypertension Lung cancer Peripheral vascular disease Surgical History AORTIC graft placement (03/21/17) Stent placement 02/05/17- [facility] [place]LEFT SUBCLAVIAN ARTERY STENT Family History Mother Stomach cancer Father Heart disease Stroke Brother Meniere's disease Social History Smoking/Tobacco Use Status: Current every day Tobacco Type: cigarettes Tobacco: How many years used: 45 Quit status: considering quitting Smoking risk assessment performed?: Yes Alcohol Intake: current Alcohol Intake frequency: 0-2 drinks per day Alcohol type: beer Drug use: Socially Substance use type: does not use Caregiver/Support person: No Household members: significant other Housing: house Communication Needs: Corrective Lenses Do you need help understanding health information?: Never current occupation: [employer] Pets and animals: Yes Pets and animals: dog(s) Sexually active: No Do you think of yourself as: straight/heterosexual Current gender identity: male What is your relationship status?: How often do you talk on the phone with friends or family?: three or more times per week How often do you get together with friends or relatives?: decline to answer How often do you attend catholic or jainism services?: decline to answer Panel score (0-1 are the most socially isolated patients): 2 NHANES result reviewed/action taken: No What type of physical activity do you participate in: other Details: work Frequency: 3-4 times per week Special nirmala needs: No Seatbelt use: never Helmet use: No Drive 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 Appears stated age. Normal body habitus. Following commands on initial exam no facial droop no slurred speech. Moving all 4 extremities. Head: Normocephalic, no trauma. Eyes: Pupils PERRLA, Red reflex noted, EOM's intact. Eyelids symmetrical without lesions, discharge, or swelling. ENT: Bilateral TM's WNL, External ear normal to inspection, no mastoid TTP, swelling, or erythema, Nasal turbinates WNL, no nasal discharge. Normal dentition, Posterior pharynx WNL, no exudate. Intermittent periorbital cyanosis noted. Chest: RRR, Normal S1, S2, distal pulses intact. Resp: Lungs clear to auscultation bilaterally, no wheezes, rales, or rhonchi. Abdomen: Soft, nondistended nontender to palpation all 4 quadrants. Genitourinary: Circumcised, no testicular swelling, no redness no erythema, rectal exam guaiac positive, black tarry stools noted. Musculoskeletal: Unable to assess gait, 5/5 strength to all four extremities. Skin: No suspicious rashes or lesions. Capillary refill less than 2 sec. slightly pale. Neurologic: Cranial nerves II-XII intact. Alert and oriented x 2. Slightly confused. DTR's intact. No pronator drift, shell molder equal bilaterally upper extremities. Hematologic/Lymphatic: No ecchymosis, no lymphadenopathy. Procedures <Diann Shipman - Last Filed: 05/24/21 08:32> Stool Hemoccult Procedural Steps Taken: stool placed in appropriate test area, developer placed on stool and control areas and controls appropriately positive and negative Hemoccult result: positive Critical Care Time <Diann Shipman - Presley Filed: 05/24/21 08:32> Critical Care Time Critical Care Time: Yes Total Critical Care Time: 60 Attestation: I spent greater than 35 minutes addressing this patient's acute life threatening illness. This time was spent engaged in actions directly related to the patient's care. Failure to initiate these interventions would have likely resulted in clinically significant or life threatening deterioration in the patients condition. Sign Out <Diann Shipman - Last Filed: 05/24/21 08:32> Sign Out Data: Sign Out Comment: Pending CT Chest, Abd Pelvis and Disposition. Last updated by Diann Shipmna at 05/23/21 16:25
--- NOTE | 2021-05-23 12:23 | DI.CT_ITS ---
Exam(s) CT HEAD - STROKE PROTOCOL EXAM: CT HEAD - STROKE PROTOCOL CLINICAL HISTORY: Trouble walking, Slurred speech. TECHNIQUE: Imaging Protocol: Axial computed tomography images with coronal and sagittal reformatted images were created and reviewed COMPARISON: CT CT BRAIN NECK CTA from 04/19/2021 FINDINGS: There are no skull fractures nor fluid in the visualized paranasal sinuses. There is no evidence of intracranial hemorrhage, mass effect, or shift of midline structures. There are no extra-axial fluid collections. The ventricles are not enlarged or shifted and there is no blo od within the ventricular system nor within the basal cisterns. Slight asymmetry in the size of the sylvian fissures (left larger than right) is again noted. This m ay be related to the occlusive arterial disease which is been previously documented. IMPRESSION: No acute intracranial findings on this noninfused CT scan of the brain. Known arterial occlusive disease. See prior report. RADIATION DOSE DELIVERED: 716.42mGy.cm Total DLP DATA REPOSITORY: All CT scans at this facility are submitted to the National Radiology Data Registry (NRDR) Dose Index Registry (DIR) with the [employer] (A[employer]). RADIATION OPTIMIZATION: All CT scans at this facility use at least one of these dose optimization te chniques: automated exposure control; mA and/or kV adjustment per patient size (includes targeted exa ms where dose is matched to clinical indication); or iterative reconstruction.
[2021-05-23 12:50] LABS: Abs Immature Grans 0.02 10^3/uL (0.0-0.06); Absolute Basophil Count 0.01 10^3/uL (0.0-0.2); Absolute Eosinophil Count 0.01 10^3/uL (0.0-0.7); Absolute Lymphocyte Count 0.58 10^3/uL (1.2-3.4); Absolute Monocyte Count 0.08 10^3/uL (0.1-0.8); Absolute Neutrophil Count 0.82 10^3/uL (1.2-6.7); Basophils % 0.7; Eosinophils % 0.7; Immature Grans % 1.3; Lymphocytes % 38.2; MCH 26.3 pg (27.0-33.0); MCHC 33.3 % (32.0-36.0); MCV 78.9 fL (80-95); Monocytes % 5.3; Nucleated RBC 0 %; RDW 15.4 % (11.8-14.1); RDW-SD 44.1 fL
[2021-05-23 12:51] LABS: ALT 21 U/L (16-63); AST 24 U/L (15-37); Albumin 3.5 g/dL (3.4-5.0); Alkaline Phosphatase 90 U/L (46-116); BUN 45 mg/dL (7-18); Bilirubin, Total 0.3 mg/dL (0.2-1.0); CREATININE 1.7 mg/dL (0.70-1.30); Calcium 9.4 mg/dL (8.5-10.1); Chloride 96 mmol/L (98-107); Glucose 115 mg/dL (74-106); Sodium 132 mmol/L (136-145); Total Protein 7.2 g/dL (6.4-8.2)
[2021-05-23 12:52] LABS: Troponin I < 0.05 ng/mL (<0.06)
[2021-05-23 13:05] LABS: PTT Activated 21.8 sec (21.0-27.5); Prothrombin Time 12.5 sec (9.3-11.0)
[2021-05-23 13:12] LABS: INR 1.2 (0.9-1.1)
[2021-05-23 13:17] LABS: Diff Comment Agrees w/ Instrument; Platelet Count 5 10^3/uL (130-400); WBC 1.52 10^3/uL (4.4-10.8)
[2021-05-23 13:18] LABS: Hypochromasia 3+; Neutrophils % 53.8; Poikilocytes 1+
[2021-05-23] MEDS: Pantoprazole 40 MG VIAL IVP (14:04)
[2021-05-23] MEDS: Normal Saline Flush 10 ML SYR IVP (14:05)
[2021-05-23] MEDS: MAGNESIUM SULFATE 1 GM/100 ML BAG IVPB (14:05)
[2021-05-23 14:59] LABS: D-Dimer 1035 ng/mlFEU (<500)
[2021-05-23] MEDS: Normal Saline 1,000 ML 150 ML IV (15:25)
[2021-05-23] MEDS: PANTOPRAZOLE 80 MG in Normal Saline 100 ML 10 MG IV (16:08)
[2021-05-23 17:00] LABS: Bilirubin Negative (Negative); Blood Trace-intact (Negative); Clarity Clear (Clear); Glucose 500 mg/dL (Negative); Ketones Negative (Negative); Leukocyte Esterase Negative (Negative); Nitrite Negative (Negative); Urobilinogen 0.2 EU/dL (Up TO 0.2); pH 5.5 (5-8)
[2021-05-23] MEDS: PIPERACILLIN/TAZO 3.375 GM in Normal Saline 50 ML IVPB (17:06)
[2021-05-23] MEDS: Normal Saline 50 ML 100 ML (17:06)
[2021-05-23 17:36] LABS: Bacteria Negative HPF (Negative); C & S Indicated? No; Casts Negative LPF (Negative); Crystals Negative HPF (Negative); Epithelial Cells Negative HPF (Negative); Mucus Negative (Negative); Other Cells Negative (Negative); RBC 0-2 HPF (0-2); WBC 0-2 HPF (0-5)
--- NOTE | 2021-05-23 17:55 | DI.VRAD_ITS ---
PROCEDURE INFORMATION: Exam: CTA Chest With Contrast Exam date and time: 05/23/2021 3:58 PM Age: 65 years old Clinical indication: Other: Pain in ab; Abdominal pain; Acute TECHNIQUE: Imaging protocol: Computed tomographic angiography of the chest with contrast. 3D rendering (Not supervised by radiologist): MIP and/or 3D reconstructed images were created by the technologist. COMPARISON: 1. CTA THORAX/ABDOMEN/PELVIS 01/16/2017 6:[address] CHEST W 12/13/2020 9:09 AM FINDINGS: Pulmonary arteries: Normal. No pulmonary emboli. Aorta: Unremarkable. No aortic aneurysm. No aortic dissection. Great vessels off aortic arch: Left proximal subclavian vascular stent. Lungs: Changes of emphysema, most marked in the lung apices. Mild diffuse bronchial wall thickening. Cavitary lesion in the subpleural right upper lobe laterally measuring approximately 4 cm by 3 cm by 3.3 cm in AP, transverse, and craniocaudad dimension. The size of this lesion is stable compared with 12/13/2020 but the central cavitation is new. Interval increase in the size of a spiculated subpleural nodule with a rounded appearance measuring approximately 1.4 cm in the right lower lobe anteriorly best seen on axial series 7, image 361. That same nodule measured approximately 9 mm on 12/23/2020. Pleural spaces: Unremarkable. No pneumothorax. No pleural effusion. Heart: Unremarkable. No cardiomegaly. No pericardial effusion. Lymph nodes: Unremarkable. No enlarged lymph nodes. Bones/joints: New rib mass in the right upper hemithorax posteriorly measuring approximately 3 cm by 2 centimetres by 2 cm in transverse, AP, and craniocaudad dimensions. This looks like it is associated with the right posterior 4th rib near the costovertebral junction. It was not present on the previous exam. Degenerative arthritis in the spine. Soft tissues: Unremarkable. Other findings: Images are degraded by motion. IMPRESSION: 1. New 3 cm destructive mass right posteromedial 4th rib 2. Increase in size of now 1.4 cm right lower lobe spiculated nodule 3. Stable size of 4 cm subpleural mass right upper lobe laterally which is now cavitated 4. Emphysema PROCEDURE INFORMATION: Exam: CT Angiography Abdomen With Contrast Exam date and time: 05/23/2021 3:58 PM Age: 65 years old Clinical indication: Other: Pain in ab; Abdominal pain; Acute TECHNIQUE: Imaging protocol: Computed tomographic angiography images of the abdomen with intravenous contrast material. 3D rendering (Not supervised by radiologist): MIP and/or 3D reconstructed images were created by the technologist. COMPARISON: 1. CTA THORAX/ABDOMEN/PELVIS 01/16/2017 6:[address] CHEST W 12/13/2020 9:09 AM FINDINGS: Aorta: Stent in the lower abdominal aorta. Celiac trunk and mesenteric arteries: No occlusion or significant stenosis. Renal arteries: No occlusion or significant stenosis. Other veins: Diffuse vascular calcifications. No aneurysm identified. Liver: Normal. No mass. Gallbladder and bile ducts: Cholecystectomy. Pancreas: Normal. No ductal dilation. Spleen: Normal. No splenomegaly. Adrenals: Slight interval increase in the size of a 2 cm lobulated low-density mass in the adrenal gland and diffuse thickening of the left adrenal gland. This is likely due to benign adenomatous change. Consider adrenal MRI to evaluate. Kidneys and ureters: Normal. No hydronephrosis. Stomach and bowel: Small right inguinal hernia containing fat and a short segment of nonobstructed bowel. Lymph nodes: Unremarkable. No enlarged lymph nodes. Intraperitoneal space: Unremarkable. No free air. No significant fluid collection. Reproductive: Prostatic calcifications. Bladder: The urinary bladder is distended and there is mild diffuse thickening of the urinary bladder wall which could be due to chronic cystitis. Bones/joints: Degenerative arthritis in the spine and pelvis. Soft tissues: Right inguinal hernia containing fat and nonobstructed bowel IMPRESSION: 1. Thickening of both adrenal glands with right adrenal mass increased in size. Consider MRI adrenal glands to evaluate 2. Thickening of the wall the urinary bladder could be due to mild cystitis 3. Right inguinal hernia containing short segment of nonobstructed bowel. Dictated and Authenticated by: Chloe Pruitt MD. Ordering:LETTY Tidwell MD
[2021-05-23 22:15] LABS: Fibrinogen (Stat) (Littleton) 369 mg/dL (208-434)
== END 2021-05-24 21:12 | disposition home or self-care (01) ==
PROVIDERS: Registered Nurse Emergency; Emergency Provider Nurse Practitioner Acute Care; PCP Family Medicine
DX: R09.02 Hypoxemia (principal); R19.5 Other fecal abnormalities; D61.818 Other pancytopenia; R47.81 Slurred speech; R26.2 Difficulty in walking, not elsewhere classified; Z79.899 Other long term (current) drug therapy; C34.90 Malignant neoplasm of unspecified part of unspecified bronchus or lung; F17.210 Nicotine dependence, cigarettes, uncomplicated
CPT/HCPCS: 36415; 36430; 71275; 74177; 80053; 85384; 86850; 86900; 86901; 86920; 87040; 93005; 96361; 96365; 96366; 96367; 96375; 99291; P9073; 70450; 81003; 81015; 83735; 84484; 85025; 85379; 85610; 85730; 93010; J2543; J3475; P9016; P9035

== ENCOUNTER 2021-06-25 02:07 | Outpatient (CLI) | payer MEDICARE, MEDICAID, SELFPAY ==
[2021-06-25 12:33] LABS: Abs Immature Grans 0.03 10^3/uL (0.0-0.06); Absolute Basophil Count 0.07 10^3/uL (0.0-0.2); Absolute Lymphocyte Count 1.25 10^3/uL (1.2-3.4); Absolute Monocyte Count 0.52 10^3/uL (0.1-0.8); Absolute Neutrophil Count 4.51 10^3/uL (1.2-6.7); Eosinophils % 5.9; HCT 34.6 % (40.0-50.0); Immature Grans % 0.4; Lymphocytes % 18.4; MCH 29.4 pg (27.0-33.0); MCHC 31.8 % (32.0-36.0); MCV 92.5 fL (80-95); MPV 9.1 fL (8.0-11.0); Monocytes % 7.7; Neutrophils % 66.6; Nucleated RBC 0 %; Platelet Count 309 10^3/uL (130-400); RBC 3.74 10^6/uL (4.36-5.78); RDW 16.4 % (11.8-14.1); RDW-SD 55.4 fL; WBC 6.78 10^3/uL (4.4-10.8)
[2021-06-25 13:07] LABS: ALT 18 U/L (16-63); AST 20 U/L (15-37); Albumin 3.6 g/dL (3.4-5.0); Alkaline Phosphatase 103 U/L (46-116); Anion Gap 13.1 mmol/L (3-11); BUN 9 mg/dL (7-18); Bilirubin, Total 0.2 mg/dL (0.2-1.0); CO2 23.9 mmol/L (21.0-32.0); CREATININE 0.8 mg/dL (0.70-1.30); Calcium 9.6 mg/dL (8.5-10.1); Chloride 101 mmol/L (98-107); FREE T4 1.24 ng/dL (0.76-1.46); Glucose 108 mg/dL (74-106); Magnesium 0.8 mg/dL (1.8-2.4); Potassium 4.3 mmol/L (3.5-5.1); Sodium 138 mmol/L (136-145); TSH 0.96 uIU/mL (0.36-3.74); Total Protein 7.5 g/dL (6.4-8.2)
== END 2021-06-25 02:08 | disposition home or self-care (01) ==
LOC: LBO 02:07 → LBN 12:20
PROVIDERS: PCP Family Medicine; Visit Provider Internal Medicine Medical Oncology
DX: C34.91 Malignant neoplasm of unspecified part of right bronchus or lung (principal); Z79.899 Other long term (current) drug therapy
CPT/HCPCS: 80053; 83735; 84439; 84443; 85025

== ENCOUNTER 2021-07-16 02:36 | Outpatient (RCR) | payer MEDICARE, MEDICAID, SELFPAY ==
[2021-07-16] MEDS: Normal Saline Flush 10 ML SYR IVP (11:50)
[2021-07-16 12:00] LABS: Abs Immature Grans 0.02 10^3/uL (0.0-0.06); Absolute Basophil Count 0.05 10^3/uL (0.0-0.2); Absolute Eosinophil Count 0.87 10^3/uL (0.0-0.7); Absolute Lymphocyte Count 1.65 10^3/uL (1.2-3.4); Absolute Monocyte Count 0.37 10^3/uL (0.1-0.8); Absolute Neutrophil Count 4.66 10^3/uL (1.2-6.7); Basophils % 0.7; Eosinophils % 11.4; HCT 32.8 % (40.0-50.0); HGB 10.5 g/dL (13.5-17.5); Immature Grans % 0.3; Lymphocytes % 21.7; MCH 28.5 pg (27.0-33.0); MCV 89.1 fL (80-95); MPV 9.1 fL (8.0-11.0); Monocytes % 4.9; Nucleated RBC 0 %; Platelet Count 257 10^3/uL (130-400); RBC 3.68 10^6/uL (4.36-5.78); RDW 14.6 % (11.8-14.1); WBC 7.62 10^3/uL (4.4-10.8)
[2021-07-16 12:26] LABS: ALT 16 U/L (16-63); AST 23 U/L (15-37); Albumin 3.8 g/dL (3.4-5.0); Alkaline Phosphatase 85 U/L (46-116); Anion Gap 11.7 mmol/L (3-11); BUN 14 mg/dL (7-18); Bilirubin, Total 0.2 mg/dL (0.2-1.0); CO2 22.3 mmol/L (21.0-32.0); Calcium 9.4 mg/dL (8.5-10.1); Chloride 100 mmol/L (98-107); FREE T4 1.21 ng/dL (0.76-1.46); Glucose 124 mg/dL (74-106); Magnesium 1.1 mg/dL (1.8-2.4); Potassium 4.1 mmol/L (3.5-5.1); Sodium 134 mmol/L (136-145); TSH 1.42 uIU/mL (0.36-3.74); Total Protein 7.2 g/dL (6.4-8.2)
== END 2021-07-31 23:59 | disposition home or self-care (01) ==
LOC: INF 02:36
PROVIDERS: PCP Family Medicine; Visit Provider Internal Medicine Medical Oncology
DX: C34.91 Malignant neoplasm of unspecified part of right bronchus or lung (principal); Z79.899 Other long term (current) drug therapy
CPT/HCPCS: 36415; 80053; 83735; 84439; 84443; 85025

== ENCOUNTER 2021-08-23 00:47 | Outpatient (CLI) | payer MEDICARE, MEDICAID, SELFPAY ==
--- NOTE | 2021-08-23 | DI.CT_ITS ---
Exam(s) CT CHEST W EXAM: CT CHEST W CLINICAL HISTORY: RT LUNG CA,C34.91,ON TREATMENT,COMPARE TO 05/03/21. TECHNIQUE: Multi planar reconstructions were performed. CONTRAST MATERIAL: Omnipaque 350; 75 cc COMPARISON: CT CT CHEST PE ABD PELVIS W from 05/23/2021 FINDINGS: CHEST: LUNGS: In the right lung the peripherally located cavitated right upper lobe mass is again noted, pre sently measuring 4.2 cm AP by 3 cm wide, slightly increased in size. No fluid level therein. Its wa ll is slightly thicker this time. This finding is pleural-based. There is no subjacent rib destruct ion. The previously described lytic destructive lesion in the posterior aspect of the right 4th rib is again noted, measuring approximately 2.5 by 2.3 cm, exhibiting slight further increase in size wit h increasing lytic osseous involvement of right pedicle and lamina of vertebra at this level. Lower down in the right lung the previously described nodule has significantly increased in size, thi s spiculated nodule now measuring 2 by 2 cm. No new focal right lung findings nor pleural effusion. There are no new significant focal findings in the opposite-left lung and there is no left pleural e ffusion. No new findings in the trachea and mainstem bronchi. MEDIASTINUM: Minimally prominent right hilar lymph nodes. No subcarinal adenopathy. Left hilum unre markable. No axillary adenopathy. Visualized thyroid unremarkable. CARDIAC: Heart size is normal. There is no pericardial effusion.Atherosclerotic thoracic aorta. No dissection. VISUALIZED UPPER ABDOMEN:Right adrenal nodule is unchanged. Thickening of left adrenal gland also un changed. OSSEOUS: As above.. IMPRESSION: 1. Compared to the prior CT scan of 05/23/2021 the previously described findings have increased in si ze. This includes both the pleural based cavitated lesion in the peripheral aspect of the right uppe r lobe as well as the noncalcified spiculated nodule in the anterior basal segment of the right lower lobe (which now measures 2 x 2 cm). 2. In addition, the lytic osseous lesion involving the paraspinal right 4th rib now appears to be inv olving the right side pedicle and lamina of the adjacent vertebra. 3. No pleural effusions evident. RADIATION DOSE DELIVERED: 531.68mGy.cm Total DLP DATA REPOSITORY: All CT scans at this facility are submitted to the National Radiology Data Registry (NRDR) Dose Index Registry (DIR) with the [employer] (ACR). RADIATION OPTIMIZATION: All CT scans at this facility use at least one of these dose optimization te chniques: automated exposure control; mA and/or kV adjustment per patient size (includes targeted exa ms where dose is matched to clinical indication); or iterative reconstruction.
== END 2021-08-23 01:07 ==
PROVIDERS: PCP Family Medicine; Visit Provider Nurse Practitioner Adult Health
DX: C34.91 Malignant neoplasm of unspecified part of right bronchus or lung (principal); R91.1 Solitary pulmonary nodule
CPT/HCPCS: 71260

== ENCOUNTER 2021-08-27 02:38 | Outpatient (RCR) | payer MEDICARE, MEDICAID, SELFPAY ==
[2021-08-08] MEDS: Normal Saline Flush 10 ML SYR IVP (12:15)
[2021-08-08 12:20] LABS: Abs Immature Grans 0.02 10^3/uL (0.0-0.06); Absolute Basophil Count 0.06 10^3/uL (0.0-0.2); Absolute Eosinophil Count 1.01 10^3/uL (0.0-0.7); Absolute Lymphocyte Count 1.72 10^3/uL (1.2-3.4); Absolute Monocyte Count 0.38 10^3/uL (0.1-0.8); Basophils % 0.8; Eosinophils % 12.6; HGB 11.5 g/dL (13.5-17.5); Immature Grans % 0.3; Lymphocytes % 21.5; MCH 28.3 pg (27.0-33.0); MCHC 31.9 % (32.0-36.0); MCV 88.7 fL (80-95); MPV 8.7 fL (8.0-11.0); Monocytes % 4.8; Nucleated RBC 0 %; Platelet Count 282 10^3/uL (130-400); RBC 4.06 10^6/uL (4.36-5.78); RDW 14.6 % (11.8-14.1); RDW-SD 47.1 fL; WBC 7.99 10^3/uL (4.4-10.8)
[2021-08-08 12:30] LABS: Magnesium 1.2 mg/dL (1.8-2.4)
[2021-08-08 12:42] LABS: ALT 19 U/L (16-63); AST 21 U/L (15-37); Alkaline Phosphatase 80 U/L (46-116); Anion Gap 9.2 mmol/L (3-11); BUN 15 mg/dL (7-18); Bilirubin, Total 0.2 mg/dL (0.2-1.0); CO2 25.8 mmol/L (21.0-32.0); Calcium 9.9 mg/dL (8.5-10.1); Chloride 102 mmol/L (98-107); Glucose 153 mg/dL (74-106); Sodium 137 mmol/L (136-145); TSH 1.96 uIU/mL (0.36-3.74); Total Protein 7.5 g/dL (6.4-8.2)
[2021-08-27] MEDS: Normal Saline Flush 10 ML SYR IVP (12:34)
[2021-08-27 12:47] LABS: Abs Immature Grans 0.03 10^3/uL (0.0-0.06); Absolute Basophil Count 0.08 10^3/uL (0.0-0.2); Absolute Eosinophil Count 1.05 10^3/uL (0.0-0.7); Absolute Lymphocyte Count 1.57 10^3/uL (1.2-3.4); Absolute Monocyte Count 0.45 10^3/uL (0.1-0.8); Absolute Neutrophil Count 4.57 10^3/uL (1.2-6.7); Eosinophils % 13.5; HCT 35.4 % (40.0-50.0); HGB 11.2 g/dL (13.5-17.5); Immature Grans % 0.4; Lymphocytes % 20.3; MCH 27.4 pg (27.0-33.0); MCHC 31.6 % (32.0-36.0); MCV 86.6 fL (80-95); MPV 9.1 fL (8.0-11.0); Monocytes % 5.8; Nucleated RBC 0 %; Platelet Count 274 10^3/uL (130-400); RBC 4.09 10^6/uL (4.36-5.78); RDW 14.1 % (11.8-14.1); RDW-SD 44.9 fL; WBC 7.75 10^3/uL (4.4-10.8)
[2021-08-27 13:14] LABS: ALT 15 U/L (16-63); AST 13 U/L (15-37); Albumin 4.1 g/dL (3.4-5.0); Alkaline Phosphatase 90 U/L (46-116); Anion Gap 8.9 mmol/L (3-11); BUN 12 mg/dL (7-18); Bilirubin, Total 0.2 mg/dL (0.2-1.0); CO2 26.1 mmol/L (21.0-32.0); CREATININE 1.2 mg/dL (0.70-1.30); Calcium 10.4 mg/dL (8.5-10.1); Chloride 101 mmol/L (98-107); FREE T4 1.06 ng/dL (0.76-1.46); Glucose 104 mg/dL (74-106); Magnesium 1.5 mg/dL (1.8-2.4); Potassium 4.5 mmol/L (3.5-5.1); Sodium 136 mmol/L (136-145); TSH 2.31 uIU/mL (0.36-3.74); Total Protein 7.7 g/dL (6.4-8.2)
== END 2021-08-30 23:59 | disposition home or self-care (01) ==
LOC: INF 02:38
PROVIDERS: PCP Family Medicine; Visit Provider Internal Medicine Medical Oncology
DX: C34.91 Malignant neoplasm of unspecified part of right bronchus or lung (principal); Z79.899 Other long term (current) drug therapy
CPT/HCPCS: 36415; 80053; 83735; 84439; 84443; 85025

== ENCOUNTER 2021-09-24 00:50 | Outpatient (RCR) | payer MEDICARE, MEDICAID, SELFPAY ==
[2021-09-04] MEDS: Normal Saline Flush 10 ML SYR IVP (11:21)
[2021-09-04 11:38] LABS: Abs Immature Grans 0.03 10^3/uL (0.0-0.06); Absolute Basophil Count 0.05 10^3/uL (0.0-0.2); Absolute Eosinophil Count 0.82 10^3/uL (0.0-0.7); Absolute Lymphocyte Count 1.42 10^3/uL (1.2-3.4); Absolute Monocyte Count 0.36 10^3/uL (0.1-0.8); Absolute Neutrophil Count 3.78 10^3/uL (1.2-6.7); Basophils % 0.8; Eosinophils % 12.7; HCT 35.2 % (40.0-50.0); HGB 11.3 g/dL (13.5-17.5); Immature Grans % 0.5; MCHC 32.1 % (32.0-36.0); MCV 84.2 fL (80-95); MPV 9.6 fL (8.0-11.0); Monocytes % 5.6; Neutrophils % 58.4; Nucleated RBC 0 %; Platelet Count 288 10^3/uL (130-400); RBC 4.18 10^6/uL (4.36-5.78); RDW 14.6 % (11.8-14.1); RDW-SD 44.6 fL; WBC 6.46 10^3/uL (4.4-10.8)
[2021-09-04 13:03] LABS: ALT 14 U/L (16-63); AST 11 U/L (15-37); Alkaline Phosphatase 78 U/L (46-116); Anion Gap 9.6 mmol/L (3-11); BUN 9 mg/dL (7-18); Bilirubin, Total 0.2 mg/dL (0.2-1.0); CO2 24.4 mmol/L (21.0-32.0); CREATININE 1.1 mg/dL (0.70-1.30); Chloride 101 mmol/L (98-107); FREE T4 1.22 ng/dL (0.76-1.46); Glucose 101 mg/dL (74-106); Magnesium 1.4 mg/dL (1.8-2.4); Potassium 3.9 mmol/L (3.5-5.1); Sodium 135 mmol/L (136-145); TSH 1.63 uIU/mL (0.36-3.74); Total Protein 7.5 g/dL (6.4-8.2)
[2021-09-24 08:44] LABS: Abs Immature Grans 0.09 10^3/uL (0.0-0.06); Absolute Eosinophil Count 0.31 10^3/uL (0.0-0.7); Absolute Monocyte Count 0.59 10^3/uL (0.1-0.8); Absolute Neutrophil Count 5.37 10^3/uL (1.2-6.7); Basophils % 1.2; Eosinophils % 3.8; HCT 36.6 % (40.0-50.0); HGB 11.4 g/dL (13.5-17.5); Immature Grans % 1.1; Lymphocytes % 19.9; MCH 26.6 pg (27.0-33.0); MCHC 31.1 % (32.0-36.0); MCV 85.3 fL (80-95); MPV 8.4 fL (8.0-11.0); Monocytes % 7.3; Neutrophils % 66.7; Nucleated RBC 0 %; Platelet Count 260 10^3/uL (130-400); RBC 4.29 10^6/uL (4.36-5.78); RDW 15.9 % (11.8-14.1); RDW-SD 47.8 fL; WBC 8.06 10^3/uL (4.4-10.8)
[2021-09-24 09:10] LABS: ALT 15 U/L (16-63); AST 14 U/L (15-37); Alkaline Phosphatase 88 U/L (46-116); Anion Gap 9.1 mmol/L (3-11); BUN 13 mg/dL (7-18); Bilirubin, Total 0.2 mg/dL (0.2-1.0); CO2 26.9 mmol/L (21.0-32.0); CREATININE 1.1 mg/dL (0.70-1.30); Calcium 9.9 mg/dL (8.5-10.1); Chloride 104 mmol/L (98-107); FREE T4 1.16 ng/dL (0.76-1.46); Glucose 101 mg/dL (74-106); Magnesium 1.8 mg/dL (1.8-2.4); Potassium 4.1 mmol/L (3.5-5.1); Sodium 140 mmol/L (136-145); TSH 2.38 uIU/mL (0.36-3.74); Total Protein 7.7 g/dL (6.4-8.2)
== END 2021-09-30 23:59 | disposition home or self-care (01) ==
LOC: INF 00:50
PROVIDERS: PCP Family Medicine; Visit Provider Internal Medicine Medical Oncology
DX: C34.91 Malignant neoplasm of unspecified part of right bronchus or lung (principal); Z79.899 Other long term (current) drug therapy
CPT/HCPCS: 36415; 80053; 83735; 84439; 84443; 85025

== ENCOUNTER 2021-10-15 02:48 | Outpatient (RCR) | payer MEDICARE, MEDICAID, SELFPAY ==
[2021-10-15 11:42] LABS: Abs Immature Grans 0.06 10^3/uL (0.0-0.06); Absolute Basophil Count 0.07 10^3/uL (0.0-0.2); Absolute Eosinophil Count 0.46 10^3/uL (0.0-0.7); Absolute Lymphocyte Count 1.87 10^3/uL (1.2-3.4); Absolute Monocyte Count 0.52 10^3/uL (0.1-0.8); Absolute Neutrophil Count 4.99 10^3/uL (1.2-6.7); Basophils % 0.9; Eosinophils % 5.8; HCT 35.6 % (40.0-50.0); HGB 11.2 g/dL (13.5-17.5); Immature Grans % 0.8; Lymphocytes % 23.5; MCH 26.4 pg (27.0-33.0); MCHC 31.5 % (32.0-36.0); MPV 8.5 fL (8.0-11.0); Monocytes % 6.5; Neutrophils % 62.5; Nucleated RBC 0 %; Platelet Count 274 10^3/uL (130-400); RBC 4.24 10^6/uL (4.36-5.78); RDW 17.2 % (11.8-14.1); RDW-SD 52.3 fL; WBC 7.97 10^3/uL (4.4-10.8)
[2021-10-15 12:13] LABS: Calcium 9.3 mg/dL (8.5-10.1)
[2021-10-15 12:14] LABS: ALT 17 U/L (16-63); AST 15 U/L (15-37); Albumin 4.2 g/dL (3.4-5.0); Alkaline Phosphatase 76 U/L (46-116); Anion Gap 9.7 mmol/L (3-11); BUN 16 mg/dL (7-18); Bilirubin, Total 0.3 mg/dL (0.2-1.0); CO2 27.3 mmol/L (21.0-32.0); CREATININE 1.1 mg/dL (0.70-1.30); Chloride 103 mmol/L (98-107); Glucose 122 mg/dL (74-106); Magnesium 1.7 mg/dL (1.8-2.4); Potassium 4.5 mmol/L (3.5-5.1); Sodium 140 mmol/L (136-145); Total Protein 7.9 g/dL (6.4-8.2)
[2021-10-15 12:15] LABS: FREE T4 1.17 ng/dL (0.76-1.46); TSH 2.27 uIU/mL (0.36-3.74)
== END 2021-10-30 23:59 | disposition home or self-care (01) ==
LOC: INF 02:48
PROVIDERS: PCP Family Medicine; Visit Provider Internal Medicine Medical Oncology
DX: C34.91 Malignant neoplasm of unspecified part of right bronchus or lung (principal); Z79.899 Other long term (current) drug therapy
CPT/HCPCS: 36415; 80053; 83735; 84439; 84443; 85025

== ENCOUNTER 2021-10-18 01:12 | Outpatient (CLI) | payer MEDICARE, MEDICAID, SELFPAY ==
[2021-10-18] MEDS: Omnipaque 350 MG/ML 100 ML BTL IJ (14:07)
[2021-10-18] MEDS: Normal Saline - Diluent 50 ML VIAL IV (14:08)
[2021-10-18] MEDS: Normal Saline Flush 10 ML SYR IVP (14:09)
--- NOTE | 2021-10-18 14:10 | DI.CT_ITS ---
Exam(s) CT CHEST W EXAM: CT CHEST W CLINICAL HISTORY: RT LUNG CA, C34.91,METASTATIC,ON CHEMO,ASSESS TREATMENT RESPONSE. TECHNIQUE: Multi planar reconstructions were performed. CONTRAST MATERIAL: Omnipaque 350; 75 cc COMPARISON: CT CT CHEST W from 08/23/2021 FINDINGS: CHEST: LUNGS: In the right upper lobe the previously described peripherally located pleural based cavitated lesion is again noted, exhibiting a somewhat thinner wall without fluid level therein nor overlying r ib destruction. Wall appears slightly thinner than previous. AP measurement this lesion is presentl y approximately 4.4 cm remains approximately 3 cm wide. Previously described lytic destructive lesion in the posterior aspect right 4th rib is also again n oted, exhibiting minimal if any significant change and again with lytic involvement of right pedicle lamina transverse process of the vertebral body and involvement of the exiting right neural foramen. Lower down in the right lung the previously described spiculated nodule appears stable in size, measu ring approximately 2.3 x 2.2 cm. No new right lung findings nor pleural effusion. There are no new significant left lung findings. No pleural effusion on the left. Some mucus is seen in the right ma instem bronchus. MEDIASTINUM: There is no new hilar adenopathy. A slightly prominent right-sided paratracheal lymph n ode is noted, possibly significant. This measures 1.7 cm AP by 1.1 cm wide CARDIAC: Heart size is normal. There is mild thickening of the anterior pericardium. Approximately 3 millimeters.Caliber of the thoracic aorta is within normal limits. VISUALIZED UPPER ABDOMEN:Thickened adrenal glands again noted. OSSEOUS: As above. IMPRESSION: 1. Compared to the CT scan of 08/23/2021 the right upper lobe cavitated lesion wall appears slightly thinner but the size of the lesion remains stable. No fluid level therein. No obvious rib destructi on at this level. No pleural effusion. 2. Previously described lytic lesion in the posterior medial right rib an adjacent vertebra is unchan ged. 3. More inferiorly located spiculated 2.3 x 2.2 cm nodule again noted. No new left lung findings. No pleural effusions on either side. Slightly enlarged right paratracheal lymph node evident. Stable appearance of the adrenal findings. RADIATION DOSE DELIVERED: 466.04mGy.cm Total DLP DATA REPOSITORY: All CT scans at this facility are submitted to the National Radiology Data Registry (NRDR) Dose Index Registry (DIR) with the [employer] (ACR). RADIATION OPTIMIZATION: All CT scans at this facility use at least one of these dose optimization te chniques: automated exposure control; mA and/or kV adjustment per patient size (includes targeted exa ms where dose is matched to clinical indication); or iterative reconstruction.
== END 2021-10-18 01:32 ==
PROVIDERS: PCP Family Medicine; Visit Provider Nurse Practitioner Adult Health
DX: C34.91 Malignant neoplasm of unspecified part of right bronchus or lung (principal)
CPT/HCPCS: 71260; J3490

== ENCOUNTER 2021-11-26 03:27 | Outpatient (RCR) | payer MEDICARE, MEDICAID, SELFPAY ==
[2021-11-05 11:29] LABS: Abs Immature Grans 0.06 10^3/uL (0.0-0.06); Absolute Basophil Count 0.07 10^3/uL (0.0-0.2); Absolute Eosinophil Count 0.28 10^3/uL (0.0-0.7); Absolute Lymphocyte Count 1.63 10^3/uL (1.2-3.4); Absolute Monocyte Count 0.62 10^3/uL (0.1-0.8); Absolute Neutrophil Count 6.48 10^3/uL (1.2-6.7); Basophils % 0.8; Eosinophils % 3.1; HCT 32.7 % (40.0-50.0); HGB 10.4 g/dL (13.5-17.5); Immature Grans % 0.7; Lymphocytes % 17.8; MCH 27.1 pg (27.0-33.0); MCHC 31.8 % (32.0-36.0); MCV 85.2 fL (80-95); MPV 8.8 fL (8.0-11.0); Monocytes % 6.8; Neutrophils % 70.8; Nucleated RBC 0 %; Platelet Count 285 10^3/uL (130-400); RBC 3.84 10^6/uL (4.36-5.78); RDW 18.3 % (11.8-14.1); RDW-SD 56.1 fL; WBC 9.14 10^3/uL (4.4-10.8)
[2021-11-05 11:53] LABS: ALT 18 U/L (16-63); AST 14 U/L (15-37); Albumin 3.9 g/dL (3.4-5.0); Alkaline Phosphatase 85 U/L (46-116); Anion Gap 12.7 mmol/L (3-11); BUN 14 mg/dL (7-18); Bilirubin, Total 0.3 mg/dL (0.2-1.0); CO2 23.3 mmol/L (21.0-32.0); CREATININE 1.2 mg/dL (0.70-1.30); Calcium 9.2 mg/dL (8.5-10.1); Chloride 101 mmol/L (98-107); FREE T4 1.28 ng/dL (0.76-1.46); Glucose 160 mg/dL (74-106); Magnesium 1.9 mg/dL (1.8-2.4); Potassium 3.8 mmol/L (3.5-5.1); Sodium 137 mmol/L (136-145); TSH 1.57 uIU/mL (0.36-3.74); Total Protein 7.2 g/dL (6.4-8.2)
[2021-11-26 10:52] LABS: Abs Immature Grans 0.05 10^3/uL (0.0-0.06); Absolute Basophil Count 0.06 10^3/uL (0.0-0.2); Absolute Eosinophil Count 0.26 10^3/uL (0.0-0.7); Absolute Lymphocyte Count 1.47 10^3/uL (1.2-3.4); Absolute Monocyte Count 0.42 10^3/uL (0.1-0.8); Absolute Neutrophil Count 4.64 10^3/uL (1.2-6.7); Basophils % 0.9; Eosinophils % 3.8; HCT 33.4 % (40.0-50.0); HGB 10.6 g/dL (13.5-17.5); Immature Grans % 0.7; Lymphocytes % 21.3; MCH 27.2 pg (27.0-33.0); MCHC 31.7 % (32.0-36.0); MCV 85.6 fL (80-95); Monocytes % 6.1; Neutrophils % 67.2; Nucleated RBC 0 %; Platelet Count 259 10^3/uL (130-400); RDW-SD 56.5 fL
[2021-11-26 11:13] LABS: ALT 13 U/L (16-63); AST 12 U/L (15-37); Albumin 3.8 g/dL (3.4-5.0); Alkaline Phosphatase 75 U/L (46-116); Anion Gap 10.2 mmol/L (3-11); BUN 20 mg/dL (7-18); Bilirubin, Total 0.2 mg/dL (0.2-1.0); CO2 23.8 mmol/L (21.0-32.0); CREATININE 1.2 mg/dL (0.70-1.30); Calcium 9.2 mg/dL (8.5-10.1); Chloride 100 mmol/L (98-107); FREE T4 1.14 ng/dL (0.76-1.46); Glucose 100 mg/dL (74-106); Magnesium 1.7 mg/dL (1.8-2.4); Potassium 4.1 mmol/L (3.5-5.1); Sodium 134 mmol/L (136-145); TSH 2.13 uIU/mL (0.36-3.74); Total Protein 7.1 g/dL (6.4-8.2)
== END 2021-11-30 23:59 | disposition home or self-care (01) ==
LOC: INF 03:27
PROVIDERS: PCP Family Medicine; Visit Provider Internal Medicine Medical Oncology
DX: C34.91 Malignant neoplasm of unspecified part of right bronchus or lung (principal); Z79.899 Other long term (current) drug therapy
CPT/HCPCS: 36415; 80053; 83735; 84439; 84443; 85025

== ENCOUNTER 2021-12-17 00:30 | Outpatient (CLI) | payer MEDICARE, MEDICAID, SELFPAY ==
[2021-12-17] MEDS: Omnipaque 350 MG/ML 100 ML BTL IV (11:51)
--- NOTE | 2021-12-17 12:05 | DI.CT_ITS ---
Exam(s) CT CHEST W EXAM: CT CHEST W CLINICAL HISTORY: LUNG CANCER C34.91 RESTAGING TECHNIQUE: Imaging Protocol: Axial computed tomography images with coronal and sagittal reformatted images were created and reviewed CONTRAST MATERIAL: Intravenous: Omnipaque 350 Contrast volume:70 ml. COMPARISON: CR,XR XR CHEST 2V PA LATERAL from 04/19/[address] CHEST W from 10/18/2021 FINDINGS: Tracheobronchial tree: No bronchiectasis or mucous plugging. Mediastinum and Hanna: Mildly enlarged right paratracheal, precarinal, AP window and right hilar regio ns, slightly increased in size when compared with previous exam. Small nodes are seen in the right p ericardial fat mild the increased in size. Pulmonary parenchyma: No acute infiltrate. Stable appearance of cavitary lesion peripheral right upp er lobe. Mild increase in size of right middle lobe nodule, 2.7 cm in greatest transverse dimensio n by 2.2 cm cephalo caudad compared with 2.5 by 1.9 on the previous exam . No new nodules. Pleura: No effusion or pneumothorax. Heart: The heart is not dilated. [id number] coronary artery calcifications are seen. Aorta: Thoracic aorta non-dilated. Severe atherosclerotic changes. No dissection . Upper abdomen: No change in right adrenal nodularity. Bones: Continued increase in size large soft tissue density lesion causing destruction the right 4th rib, right pedicle, lamina as well as a portion of the vertebral body. No new suspicious bony lesion s. Soft tissues: Unremarkable. IMPRESSION: Mild interval increase in size of right middle lobe mass and mass destroying right medial 4th rib in adjacent portion of the vertebral body. Slight interval increase in size of hilar and mediastinal ad enopathy. Stable size of cavitary right upper lobe lesion. No new lesions identified. RADIATION DOSE DELIVERED: 478.28mGy.cm Total DLP DATA REPOSITORY: All CT scans at this facility are submitted to the National Radiology Data Registry (NRDR) Dose Index Registry (DIR) with the [employer] (ACR). RADIATION OPTIMIZATION: All CT scans at this facility use at least one of these dose optimization te chniques: automated exposure control; mA and/or kV adjustment per patient size (includes targeted exa ms where dose is matched to clinical indication); or iterative reconstruction.
[2021-12-17 12:16] LABS: Abs Immature Grans 0.04 10^3/uL (0.0-0.06); Absolute Basophil Count 0.04 10^3/uL (0.0-0.2); Absolute Eosinophil Count 0.23 10^3/uL (0.0-0.7); Absolute Lymphocyte Count 1.25 10^3/uL (1.2-3.4); Absolute Monocyte Count 0.51 10^3/uL (0.1-0.8); Absolute Neutrophil Count 5.85 10^3/uL (1.2-6.7); Basophils % 0.5; Eosinophils % 2.9; HCT 35.5 % (40.0-50.0); HGB 11.1 g/dL (13.5-17.5); Immature Grans % 0.5; Lymphocytes % 15.8; MCH 27.5 pg (27.0-33.0); MCHC 31.3 % (32.0-36.0); MCV 88.1 fL (80-95); MPV 8.8 fL (8.0-11.0); Monocytes % 6.4; Neutrophils % 73.9; Nucleated RBC 0 %; Platelet Count 270 10^3/uL (130-400); RBC 4.03 10^6/uL (4.36-5.78); RDW 17.2 % (11.8-14.1); RDW-SD 55.6 fL; WBC 7.92 10^3/uL (4.4-10.8)
[2021-12-17 12:39] LABS: Hemoglobin A1C 5.4 % (<5.7)
[2021-12-17 12:45] LABS: ALT 19 U/L (16-63); AST 18 U/L (15-37); Albumin 4.3 g/dL (3.4-5.0); Alkaline Phosphatase 86 U/L (46-116); Anion Gap 8.8 mmol/L (3-11); BUN 16 mg/dL (7-18); Bilirubin, Total 0.2 mg/dL (0.2-1.0); CO2 27.2 mmol/L (21.0-32.0); CREATININE 1.2 mg/dL (0.70-1.30); Calcium 9.9 mg/dL (8.5-10.1); Chloride 101 mmol/L (98-107); FREE T4 1.33 ng/dL (0.76-1.46); Glucose 85 mg/dL (74-106); Magnesium 1.8 mg/dL (1.8-2.4); Potassium 4.3 mmol/L (3.5-5.1); Sodium 137 mmol/L (136-145); Total Protein 8.1 g/dL (6.4-8.2)
== END 2021-12-17 00:50 ==
PROVIDERS: PCP Family Medicine; Visit Provider Internal Medicine Medical Oncology
DX: R73.9 Hyperglycemia, unspecified (principal); Z79.899 Other long term (current) drug therapy; C34.91 Malignant neoplasm of unspecified part of right bronchus or lung
CPT/HCPCS: 80053; 71260; 83036; 83735; 84439; 84443; 85025; J3490

== ENCOUNTER 2021-12-24 02:54 | Outpatient (RCR) | payer MEDICARE, MEDICAID, SELFPAY ==
[2021-12-24 11:01] LABS: Abs Immature Grans 0.02 10^3/uL (0.0-0.06); Absolute Basophil Count 0.05 10^3/uL (0.0-0.2); Absolute Eosinophil Count 1.56 10^3/uL (0.0-0.7); Absolute Lymphocyte Count 1.53 10^3/uL (1.2-3.4); Absolute Monocyte Count 0.45 10^3/uL (0.1-0.8); Absolute Neutrophil Count 5.07 10^3/uL (1.2-6.7); Basophils % 0.6; HCT 38.2 % (40.0-50.0); HGB 11.8 g/dL (13.5-17.5); Immature Grans % 0.2; Lymphocytes % 17.6; MCH 27.3 pg (27.0-33.0); MCHC 30.9 % (32.0-36.0); MCV 88.2 fL (80-95); MPV 9.1 fL (8.0-11.0); Monocytes % 5.2; Neutrophils % 58.4; Nucleated RBC 0 %; Platelet Count 305 10^3/uL (130-400); RBC 4.33 10^6/uL (4.36-5.78); RDW 16.7 % (11.8-14.1); RDW-SD 54.1 fL; WBC 8.68 10^3/uL (4.4-10.8)
[2021-12-24 11:28] LABS: ALT 16 U/L (16-63); AST 18 U/L (15-37); Albumin 4.1 g/dL (3.4-5.0); Alkaline Phosphatase 93 U/L (46-116); Anion Gap 9.1 mmol/L (3-11); BUN 15 mg/dL (7-18); Bilirubin, Total 0.3 mg/dL (0.2-1.0); CO2 26.9 mmol/L (21.0-32.0); Calcium 10.4 mg/dL (8.5-10.1); Chloride 100 mmol/L (98-107); FREE T4 1.29 ng/dL (0.76-1.46); Glucose 102 mg/dL (74-106); Magnesium 1.6 mg/dL (1.8-2.4); Sodium 136 mmol/L (136-145); TSH 2.95 uIU/mL (0.36-3.74)
== END 2021-12-31 23:59 | disposition home or self-care (01) ==
LOC: INF 02:54
PROVIDERS: PCP Family Medicine; Visit Provider Internal Medicine Medical Oncology
DX: C34.91 Malignant neoplasm of unspecified part of right bronchus or lung (principal); Z79.899 Other long term (current) drug therapy
CPT/HCPCS: 36415; 80053; 83735; 84439; 84443; 85025

== ENCOUNTER 2022-01-28 01:20 | Outpatient (RCR) | payer MEDICARE, MEDICAID, SELFPAY ==
[2022-01-28 10:21] LABS: Abs Immature Grans 0.02 10^3/uL (0.0-0.06); Absolute Basophil Count 0.05 10^3/uL (0.0-0.2); Absolute Eosinophil Count 1.08 10^3/uL (0.0-0.7); Absolute Lymphocyte Count 0.92 10^3/uL (1.2-3.4); Absolute Monocyte Count 0.42 10^3/uL (0.1-0.8); Absolute Neutrophil Count 5.43 10^3/uL (1.2-6.7); Basophils % 0.6; Eosinophils % 13.6; HCT 37.3 % (40.0-50.0); HGB 11.6 g/dL (13.5-17.5); Immature Grans % 0.3; Lymphocytes % 11.6; MCH 26.9 pg (27.0-33.0); MCHC 31.1 % (32.0-36.0); MCV 86.3 fL (80-95); MPV 8.9 fL (8.0-11.0); Monocytes % 5.3; Neutrophils % 68.6; Nucleated RBC 0 %; Platelet Count 240 10^3/uL (130-400); RBC 4.32 10^6/uL (4.36-5.78); RDW 16.5 % (11.8-14.1); RDW-SD 52.1 fL; WBC 7.92 10^3/uL (4.4-10.8)
[2022-01-28 10:47] LABS: ALT 12 U/L (16-63); AST 13 U/L (15-37); Alkaline Phosphatase 87 U/L (46-116); Anion Gap 10.6 mmol/L (3-11); BUN 18 mg/dL (7-18); Bilirubin, Total 0.4 mg/dL (0.2-1.0); CO2 23.4 mmol/L (21.0-32.0); CREATININE 1.2 mg/dL (0.70-1.30); Calcium 9.3 mg/dL (8.5-10.1); Chloride 98 mmol/L (98-107); FREE T4 1.52 ng/dL (0.76-1.46); Glucose 116 mg/dL (74-106); Magnesium 2.1 mg/dL (1.8-2.4); Potassium 4.4 mmol/L (3.5-5.1); Sodium 132 mmol/L (136-145); Total Protein 7.8 g/dL (6.4-8.2)
== END 2022-01-28 23:59 | disposition home or self-care (01) ==
LOC: INF 01:20
PROVIDERS: PCP Family Medicine; Visit Provider Internal Medicine Medical Oncology
DX: C34.91 Malignant neoplasm of unspecified part of right bronchus or lung (principal); Z79.899 Other long term (current) drug therapy
CPT/HCPCS: 36415; 80053; 83735; 84439; 84443; 85025

== ENCOUNTER → 2022-02-22 01:54 | Outpatient (CLI) | payer MEDICARE, MEDICAID, SELFPAY ==
--- NOTE | 2022-02-22 | DI.CT_ITS ---
Exam(s) CT CHEST W EXAM: CT CHEST W CLINICAL HISTORY: METS LUNG CA,S/P RAD RT CHEST WALL LESION, PARASPINA LESION TECHNIQUE: Imaging Protocol: Axial computed tomography images with coronal and sagittal reformatted images were created and reviewed CONTRAST MATERIAL: Intravenous: Omnipaque 350 Contrast volume:structured data in ml. COMPARISON: CT CT CHEST W from 12/17/2021 FINDINGS: There has been mild interval increase in size of previously noted mass invading the posterior medial right 4th rib and adjacent aspect of the vertebral body. Approximate measurements 5.1 transverse by 2.9 AP by 3 cm cephalo caudad. Interval increase in size of anterior inferior right lower lobe nodul e, adjacent to the fissure, now 2.8 cm in diameter by 4.6 cm in length.. Stable area of thick-walled cavitary lesion with adjacent scarring in the lateral right upper lobe. No new pulmonary nodules. No infiltrates, pleural or pericardial effusion. Stable size small mediastinal and right hilar lymph nodes. Stable stable nodule in the right-sided pericardial fat. Stable soft tissue thickening at t he level of the anterior right diaphragm. Mild adjacent rib destruction, unchanged. Underlying emphysematous changes, greatest in the upper lobes.. Degenerative changes in the spine. No lytic or blastic lesions. Severe atherosclerotic changes of the aorta. Stent in the proximal left hathaway bclavian artery. IMPRESSION: Continued interval increase in size of previously noted right lower lobe lung mass and of lesion inv olving the right 4th rib and adjacent portion of the spine. Stable appearance of thick walled cavita ry lesion right upper lobe and soft tissue mass near the anterior right diaphragm. RADIATION DOSE DELIVERED: 469.08mGy.cm Total DLP DATA REPOSITORY: All CT scans at this facility are submitted to the National Radiology Data Registry (NRDR) Dose Index Registry (DIR) with the [employer] (ACR). RADIATION OPTIMIZATION: All CT scans at this facility use at least one of these dose optimization te chniques: automated exposure control; mA and/or kV adjustment per patient size (includes targeted exa ms where dose is matched to clinical indication); or iterative reconstruction.
[2022-02-22] MEDS: Omnipaque 350 MG/ML 100 ML BTL 70 ML IJ (15:56)
== END ==
PROVIDERS: PCP Family Medicine; Visit Provider Internal Medicine Medical Oncology
DX: C34.91 Malignant neoplasm of unspecified part of right bronchus or lung (principal); Z92.3 Personal history of irradiation; D48.0 Neoplasm of uncertain behavior of bone and articular cartilage; J98.4 Other disorders of lung
CPT/HCPCS: 71260; J3490

== ENCOUNTER 2022-02-25 02:22 | Outpatient (RCR) | payer MEDICARE, MEDICAID, SELFPAY ==
[2022-02-18 09:25] LABS: Abs Immature Grans 0.07 10^3/uL (0.0-0.06); Absolute Basophil Count 0.06 10^3/uL (0.0-0.2); Absolute Eosinophil Count 0.12 10^3/uL (0.0-0.7); Absolute Lymphocyte Count 0.76 10^3/uL (1.2-3.4); Absolute Monocyte Count 0.53 10^3/uL (0.1-0.8); Absolute Neutrophil Count 8.32 10^3/uL (1.2-6.7); Basophils % 0.6; Eosinophils % 1.2; HCT 37.7 % (40.0-50.0); HGB 11.6 g/dL (13.5-17.5); Immature Grans % 0.7; Lymphocytes % 7.7; MCH 26.8 pg (27.0-33.0); MCHC 30.8 % (32.0-36.0); MCV 87.1 fL (80-95); MPV 8.4 fL (8.0-11.0); Monocytes % 5.4; Neutrophils % 84.4; Nucleated RBC 0 %; Platelet Count 319 10^3/uL (130-400); RBC 4.33 10^6/uL (4.36-5.78); RDW-SD 54.1 fL; WBC 9.86 10^3/uL (4.4-10.8)
[2022-02-18 09:48] LABS: ALT 19 U/L (16-63); AST 13 U/L (15-37); Alkaline Phosphatase 78 U/L (46-116); Anion Gap 9.1 mmol/L (3-11); BUN 19 mg/dL (7-18); Bilirubin, Total 0.3 mg/dL (0.2-1.0); CO2 25.9 mmol/L (21.0-32.0); CREATININE 1.1 mg/dL (0.70-1.30); Calcium 9.2 mg/dL (8.5-10.1); Chloride 101 mmol/L (98-107); FREE T4 1.42 ng/dL (0.76-1.46); Glucose 120 mg/dL (74-106); Magnesium 1.8 mg/dL (1.8-2.4); Potassium 3.9 mmol/L (3.5-5.1); Sodium 136 mmol/L (136-145); TSH 1.71 uIU/mL (0.36-3.74); Total Protein 7.8 g/dL (6.4-8.2)
== END 2022-02-28 23:59 | disposition home or self-care (01) ==
LOC: INF 02:22
PROVIDERS: PCP Family Medicine; Visit Provider Internal Medicine Medical Oncology
DX: C34.91 Malignant neoplasm of unspecified part of right bronchus or lung (principal); Z79.899 Other long term (current) drug therapy
CPT/HCPCS: 36415; 80053; 83735; 84439; 84443; 85025